=== PATIENT | female | born 1975 | race Caucasian/White ===

== ENCOUNTER 2017-12-06 20:50 | Emergency (ER) | payer OTHER ==
[~2017-12-06] VITALS: Ht 157.5 cm; Wt 124.7 kg
[~2017-12-06 20:50] MED LIST: ATENOLOL PO; ATENOLOL100 MG PO; ATIVAN1 MG PO; CHLORTHALIDONE25 MG PO; CLONIDINE HCL0.1 MG PO; CYCLOBENZAPRINE10 MG PO; DEXILANT60 MG PO; FIORINAL 50-321 EACH PO; HYDROCODON-ACE1 EAC9 PO; LISINOPRIL40 MG PO; LORAZEPAM2 MG PO; NORCO 5-325 TA1 EACH PO; NORVASC10 MG PO; PROAIR HFA INH8.5 GM INH; TIZANIDINE HCL4 M1 PO; ZOFRAN8 MG PO; ZYRTEC10 MG PO
[2017-12-06] MEDS ORDERED: DIPHENHYDRAMINE HCL 25 MG CAP PO ONE (22:00)
[2017-12-06] MEDS ORDERED: MORPHINE SULFATE 4 MG/ML SYR IM ONE (22:00)
[2017-12-06] MEDS ORDERED: VALIUM5 MG PO (22:21)
[2017-12-06] MEDS ORDERED: TYLENOL WITH C1 EACH PO (22:21)
[2017-12-06 22:43] VITALS: BP 147/82
== END 2017-12-06 22:35 | disposition home or self-care (01) ==
LOC: FSED 20:50
DX: S82.62XA Displaced fracture of lateral malleolus of left fibula, initial encounter for closed fracture (principal); Y93.01 Activity, walking, marching and hiking; I10 Essential (primary) hypertension
CPT/HCPCS: 29515; 73610; 96372; 99284; J2270

== ENCOUNTER 2019-07-27 22:44 | Emergency (ER) | payer OTHER ==
[~2019-07-27] VITALS: Ht 157.5 cm; Wt 139.3 kg
[~2019-07-27 22:44] MED LIST changes: +TYLENOL WITH C1 EACH PO; +VALIUM5 MG PO
--- NOTE | 2019-07-27 23:45 | Diagnostic Imaging Report ---
X-ray right wrist 3 views X-ray right elbow 3 views HISTORY: Pain. Trauma COMPARISON: None available. FINDINGS: Bones: Acute displaced angulated comminuted impacted intra-articular distal radial fracture. Ulnar styloid tip fracture. Joints: Mild volar translation of the carpus relative to the posterior aspect of the radial articular surface. Soft tissues: Soft tissue swelling about the wrist IMPRESSION: Acute displaced angulated comminuted impacted intra-articular distal radial fracture and ulnar styloid tip fracture. Mild volar translation of the carpus relative to the posterior aspect of the distal radial articular surface. Signed by: Richard Richardson DO on 07/27/2019 11:42 PM
[2019-07-28] MEDS ORDERED: HYDROCODONE/APAP 5MG-325MG TAB ONE (00:13)
[2019-07-28] MEDS ORDERED: ONDANSETRON HCL 4 MG ORAL DISINTEGRATING TAB ONE (00:13)
[2019-07-28] MEDS ORDERED: HYDROCODONE/APAP 5MG-325MG TAB PO ONE (00:15)
[2019-07-28] MEDS ORDERED: ONDANSETRON HCL 4 MG ORAL DISINTEGRATING TAB PO ONE (00:15)
== END 2019-07-28 00:17 | disposition home or self-care (01) ==
LOC: FSED 22:44
DX: S52.571A Other intraarticular fracture of lower end of right radius, initial encounter for closed fracture (principal); S52.611A Displaced fracture of right ulna styloid process, initial encounter for closed fracture; W03.XXXA Other fall on same level due to collision with another person, initial encounter; G89.11 Acute pain due to trauma; E66.9 Obesity, unspecified; Z68.43 Body mass index [BMI] 50.0-59.9, adult; I10 Essential (primary) hypertension
CPT/HCPCS: 29125; 73080; 73110; 99284; Q0162

== ENCOUNTER → 2019-08-08 | Day surgery (SDC) | payer OTHER ==
[~2019-08-08] MED LIST changes: +ACETAMINOPHEN 1000 MG/100 ML 100 ML IV ONE; +AMITRIPTYLINE H10 MG PO; +BUPIVACAINE HCL 0.5% INJ 30 ML VIAL INJ ONE; +BUTALB-ACETAMI1 EACH PO; +DESFLURANE 240 ML BTL INH ONE; +DEXAMETHASONE SOD PHOS INJ 4 MG/ML VIAL ONE; +FENTANYL CITRATE/PF 100MCG/2 ML INJ ONE; +HYDRALAZINE HCL25 MG PO; +HYDROXYCHLOROQ200 MG PO; +LIDOCAINE HCL 2% LOCAL INJ 5 ML SDV VIAL INJ ONE; +METOPROLOL TART50 MG PO; +MIDAZOLAM HCL 2 MG/2 ML VIAL ONE; +OMEPRAZOLE40 MG PO; +ONDANSETRON HCL INJ 2MG/ML 2ML 2 MG/ML VIAL ONE; +PROPOFOL IV EMULSION 10 MG/ML 20 ML VIAL ONE; +ROCURONIUM BROMIDE 10 MG/ML 5ML VIAL ONE; +SUCCINYLCHOLINE 200 MG/10 ML SYR ONE; +XYZAL5 MG PO
--- OUTSIDE RECORDS SUMMARY | 2019-08-08 05:32 | XMS REPORT | Encounter Summary ---
Author Organization Unknown Address [address] [place] [address] Phone [phone] Care Team Providers Care Electrical High Tension Tester Name Role Phone Dr. Georgina Calderon 3 [phone] Kobe Rosa MD 121 [phone] Lux Esteves MD 124 [phone] Reason for Visit Mixed anxiety and depressive disorder Instructions 1. Working through the pain of grief counseling referral - Please call patient and schedule her an appointment. fluoxetine 20 mg capsule 2. Anxiety diazepam 10 mg tablet 3. Mixed anxiety and depressive disorder 4. Immunization Adacel (Tdap Adolesn/Adult)(PF)2 Lf-(2.5-5-3-5)-5 Lf/0.5 mL IM syringe 5. Body mass index 40+ - severely obese body mass index: care instructions learning about healthy weight Discussion Note: None recorded. Plan of Care Reminders Provider Appointments Est Patient 03/26/2019 10:45AM Georgina Calderon MD Lab None recorded. Referral Counseling Referral 03/12/2019 Yusef Baez ART MUSEUM AIDE Procedures None recorded. Surgeries None recorded. Imaging None recorded. Medications Name Start Date amitriptyline 10 mg tablet Take 1 tablet every day by oral route at bedtime. amlodipine 10 mg tablet TAKE 1 TABLET BY MOUTH EVERY DAY fcugzccnpp-fzpuiasycodlg-ilwpoevk 50 mg-300 mg-40 mg capsule TAKE 1 CAPSULE BY MOUTH EVERY 6 HOURS NEEDED cephalexin 500 mg capsule Take 1 capsule every 6 hours by oral route for 10 days. clonidine HCl 0.1 mg tablet TAKE 1 TABLET BY MOUTH EVERY DAY cyclobenzaprine 10 mg tablet Take 1 tablet twice a day by oral route. diazepam 10 mg tablet Take 1 tablet twice a day by oral route as needed. fluconazole 150 mg tablet Take 1 tablet every day by oral route as needed for 2 days. fluoxetine 20 mg capsule Take 1 capsule every day by oral route. hydroxychloroquine 200 mg tablet Take 1 tablet twice a day by oral route. lisinopril 40 mg tablet TAKE 1 TABLET BY MOUTH EVERY DAY metoprolol tartrate 100 mg tablet TAKE 1 TABLET BY MOUTH TWICE DAILY mupirocin 2 % topical ointment APPLY A SMALL AMOUNT TO THE AFFECTED AREA BY TOPICAL ROUTE 3 TIMES PER DAY omeprazole 20 mg capsule,delayed release TAKE 1 CAPSULE BY MOUTH EVERY DAY NEEDED Xyzal 5 mg tablet Take 1 tablet every day by oral route as needed for 10 days. Medications Administered None recorded. Vitals Height Weight BMI Blood Pressure 5 ft 2 in 311.2 lbs 56.9 kg/m2 128/88 mm[Hg] Lab Results Date Name Specimen Result Interpretation Description Value Range Status Address 02/25/2019 CBC W/ Auto Diff Wbc 7.3 x10e3/uL 3.4-10.8 x10e3/uL Final [facility] Laboratory: [facility] [place] [address] Rbc 4.20 x10e6/uL 3.77-5.28 x10e6/uL Final [facility] Laboratory: [address] [place] [address] Hemoglobin 12.0 g/dL 11.1-15.9 g/dL Final [facility] Laboratory: [address] [place] [address] Hematocrit 36.1 % 34.0-46.6 % Final [facility] Laboratory: [address] [place] [address] Mcv 86 fL 79-97 fL Final [facility] Laboratory: [address] [place] [address] Mch 28.6 pg 26.6-33.0 pg Final [facility] Laboratory: [address] [place] [address] Mchc 33.2 g/dL 31.5-35.7 g/dL Final [facility] Laboratory: [address] [place] [address] Rdw 13.6 % 12.3-15.4 % Final [facility] Laboratory: [address] [place] [place] [address] Platelets 205 x10e3/uL 150-450 x10e3/uL Final [facility] Laboratory: [address] [place] [address] Neutrophils 66 % not estab. % Final [facility] Laboratory: [address] [place] [address] Lymphs 23 % not estab. % Final [facility] Laboratory: [address] [place] [place] [address] Monocytes 8 % not estab. % Final [facility] Laboratory: [address] [place] [address] Eos 3 % not estab. % Final [facility] Laboratory: [address] [place] [address] [place] Basos 0 % not estab. % Final [facility]: [address] [place] [address] Immature Cells comment Cancelled [facility] Laboratory: [address] [place] [address] [place] Neutrophils (Absolute) 4.8 x10e3/uL 1.4-7.0 x10e3/uL Final [facility] Laboratory: [address] [place] [address] [place] Lymphs (Absolute) 1.7 x10e3/uL 0.7-3.1 x10e3/uL Final [facility] Laboratory: [address] [place] [place] [address] Monocytes(absolute) 0.6 x10e3/uL 0.1-0.9 x10e3/uL Final [facility] Laboratory: [address] [place] [address] Eos (Absolute) 0.2 x10e3/uL 0.0-0.4 x10e3/uL Final [facility] Laboratory: [address] [place] [address] Baso (Absolute) 0.0 x10e3/uL 0.0-0.2 x10e3/uL Final [facility] Laboratory: [address] [place] [place] [address] Immature Granulocytes 0 % not estab. % Final [facility]: [address] [place] [address] Immature Grans (Abs) 0.0 x10e3/uL 0.0-0.1 x10e3/uL Final [facility] Laboratory: [address] [place] [address] Hematology Comments: comment Cancelled [facility] Laboratory: [address] [place] [address] 02/25/2019 CMP, Serum or Plasma High Glucose 111 mg/dL 65-99 mg/dL Final [facility] Laboratory: [address] [place] [place] [address] Bun 14 mg/dL 6-24 mg/dL Final [facility] Laboratory: [address] [place] [address] Creatinine 0.63 mg/dL 0.57-1.00 mg/dL Final [facility] Laboratory: [address] [place] [address] eGFR If Nonafricn AM 108 mL/min/1.73 >59 mL/min/1.73 Final [facility] Laboratory: [address] [place] [address] eGFR If Africn AM 124 mL/min/1.73 >59 mL/min/1.73 Final [facility] Laboratory: [address] [place] [facility], [place] BUN/creatinine Ratio 22 9-23 Final [facility] Laboratory: [address] [place] [place], [place] Sodium 142 mmol/L 134-144 mmol/L Final [facility] Laboratory: [address] [place] [address], [place] Potassium 4.3 mmol/L 3.5-5.2 mmol/L Final [facility] Laboratory: [address] [place] [address], [place] Chloride 104 mmol/L 96-106 mmol/L Final [facility] Laboratory: [address] [place] [address], [place] Carbon Dioxide, Total 21 mmol/L 20-29 mmol/L Final [facility] Laboratory: [address] [place] [place], [place] Calcium 8.7 mg/dL 8.7-10.2 mg/dL Final [facility] Laboratory: [address] [facility], [place] Protein, Total 7.1 g/dL 6.0-8.5 g/dL Final [facility] Laboratory: [address] [place] [place] [address], [place] Albumin 4.1 g/dL 3.5-5.5 g/dL Final [facility] Laboratory: [address] [place] [address], [place] Globulin, Total 3.0 g/dL 1.5-4.5 g/dL Final [facility] Laboratory: [address] [place] [facility], [place] A/g Ratio 1.4 1.2-2.2 Final [facility] Laboratory: [address] [place] [place] [address] [place] [address] Bilirubin, Total <0.2 mg/dL 0.0-1.2 mg/dL Final [facility] Laboratory: [address] [place] [facility], [place] Alkaline Phosphatase 92 IU/L 39-117 IU/L Final [facility]: [address] [place] [place] [address] Ast (Sgot) 28 IU/L 0-40 IU/L Final [facility] Laboratory: [address] [place] [address] Alt (Sgpt) 31 IU/L 0-32 IU/L Final [facility] Laboratory: [address] [place] 02/25/2019 Lipid Panel, Serum Cholesterol, Total 168 mg/dL 100-199 mg/dL Final [facility] Laboratory: [address] [place] [address] Triglycerides 113 mg/dL 0-149 mg/dL Final [facility] Laboratory: [address] [place] [place] [address] HDL Cholesterol 50 mg/dL >39 mg/dL Final [facility] Laboratory: [address] [place] [place] [address] VLDL Cholesterol Gallito 23 mg/dL 5-40 mg/dL Final [facility] Laboratory: [address] [place] [address] LDL Cholesterol Calc 95 mg/dL 0-99 mg/dL Final [facility] Laboratory: [address] [place] [address], [place] 02/25/2019 TSH, Serum or Plasma Tsh 0.858 uIU/mL 0.450-4.500 uIU/mL Final [facility] Laboratory: [address] [place] [address], [place] 02/25/2019 Erythrocyte Sedimentation Rate by Westergren Method Sedimentation Rate-westergren 21 mm/HR 0-32 mm/HR Final [facility] Laboratory: [address] Allergies Code Code System Name Reaction Severity Status Onset 21581101 RxNorm Celebrex Active 21760927 RxNorm Imitrex Flushing Active Problems Name Status Onset Date Source Migraine with Aura Active 06/27/2016 Benign Essential Hypertension Active 06/27/2016 Neck Pain Active 06/27/2016 Body Mass Index 40+ - Severely Obese Active 06/27/2016 History of Hysterectomy for Benign Disease Active 11/22/2016 Mixed Anxiety and Depressive Disorder Active 03/06/2017 History of Disorder of Connective Tissue Active 06/17/2017 Seasonal Allergy Active 12/07/2017 Closed Fracture of Lateral Malleolus Active 12/08/2017 Morbid Obesity Active 02/27/2019 Procedures Date Name Performed by 09/25/2015 Hysterectomy (Partial) Information not available 09/25/2008 Orthopedic Surgery Information not available 09/25/1998 Tubal Ligation Information not available Ankle Arthroscopy/surgery Information not available Partial Hysterectomy Information not available Vaccine List Vaccine Type Tdap 03/12/20190.5 mL Social History Smoking Status Former Smoker (1/2 PPD) Past Encounters 03/12/2019 Working through the Pain of Grief; Anxiety; Mixed Anxiety and Depressive Disorder; Immunization; Body Mass Index 40+ - Severely Obese Georgina Calderon MD: [address] [place] [address], Ph. 02/22/2019 Cellulitis; Body Mass Index 40+ - Severely Obese; Morbid Obesity; Closed Fracture of Lateral Malleolus; Chronic Low Back Pain; History of Disorder of Connective Tissue; Benign Essential Hypertension; Migraine with Aura; Seasonal Allergy; Mixed Anxiety and Depressive Disorder; Gastroesophageal Reflux Disease without Esophagitis Georgina Calderon MD: [address] [place] [address], Ph. History of Present Illness Note:44yo female presents for evaluation of acute grief. Pt found her qyxqjd-xg-alf in her bed on Monday night. Went to visit her nieces (34yo & 25yo) and SMITH wasn't 'feeling well'. Pt's brother is alcoholic dealing with their mother's . Pt very worried about nieces & their coping - youngest trying to hold it together. 34yo is crying & staying with pt. Pt, her & her oldest son (27yo) & 20yo son's birthday on Sat. Rkawnh-ep-hmg was only 53yo.<div>Pt very upset & distraught. </div><div>No suicidal. Tearful. Agreeable to counseling which she has gone to in past.</div> Review of Systems:ROS as noted in the HPI Review of Systems Comprehensive General Adult ROS Reported By: Patient Constitutional: Constitutional: no fever; upset, tearful, anxious, sad, shocked Eyes: Eyes: no vision change Cardiovascular: Cardiovascular: no chest pain Respiratory: Respiratory: no cough, no wheezing, no shortness of breath Gastrointestinal: Gastrointestinal: no abdominal pain Neurologic: Neurologic: no loss of consciousness, no headaches Psychiatric: Psych: feeling safe in a relationship, no alcohol abuse, no hallucinations, no suicidal thoughts, depression, anxiety Physical Exam General Adult Exam (Female) Reported By: Patient Constitutional: General Appearance: healthy-appearing, well-developed, obese. Level of Distress: NAD. Ambulation: ambulating normally Psychiatric: Insight: good judgement. Mental Status: active and alert, abnormal affect, anxious, depressed; tearful, upset, crying ENMT: Hearing: no hearing loss. Oropharynx: moist mucous membranes Lungs: Respiratory effort: no dyspnea. Auscultation: breath sounds normal, good air movement, no wheezing, no rales/crackles Cardiovascular: Heart Auscultation: RRR, normal S1, normal S2, no murmurs. Neck vessels: no carotid bruits Neurologic: Gait and Station: normal gait Skin: Inspection and palpation: no rash
--- OUTSIDE RECORDS SUMMARY | 2019-08-08 05:32 | XMS REPORT | Encounter Summary ---
Author Organization Unknown Address [address] [place] [address] Phone [phone] Care Team Providers Care Profile Saw Operator Name Role Phone Dr. Georgina Calderon 3 [phone] Miguel Hodge MD 107 [phone] Kobe Rosa MD 121 [phone] Karlo Albright MD 124 [phone] Reason for Visit sore throat; fever; body aches Instructions 1. Upper respiratory infection amoxicillin 875 mg-potassium clavulanate 125 mg tablet taavhoejepdpukr-jfrmtymienpnnxa-ZD 2 mg-30 mg-10 mg/5 mL oral syrup ceftriaxone 1 gram solution for injection 2. Sore throat symptom rapid strep group A, throat 3. Fever rapid flu (A+B) 4. Body mass index 30+ - obesity body mass index: care instructions 5. Depression screening learning about depression 6. Migraine with aura bnlpmaexte-coxotyk-mhdzxmjk 50 mg-325 mg-40 mg capsule Discussion Note: None recorded. Plan of Care Reminders Provider Appointments None recorded. Lab Rapid Strep Group a, Throat 12/31/2018 [facility] [place] Rapid Flu (A+B) 12/31/2018 [facility] [place] Referral None recorded. Procedures None recorded. Surgeries None recorded. Imaging None recorded. Medications Name Start Date amitriptyline 10 mg tablet Take 1 tablet every day by oral route at bedtime. amlodipine 10 mg tablet TAKE 1 TABLET BY MOUTH EVERY DAY amoxicillin 875 mg-potassium clavulanate 125 mg tablet Take 1 tablet twice a day by oral route for 10 days. gmdkmrvqzbjdvix-yjzofcoxqjshuxu-EN 2 mg-30 mg-10 mg/5 mL oral syrup Take 10 mL every 6-8 hours by oral route as needed. xooozhyrew-yefrafk-jqleaisu 50 mg-325 mg-40 mg capsule Take 1 capsule every 4-6 hours by oral route as needed. ceftriaxone 1 gram solution for injection Take 1 g by injection route. clonidine HCl 0.1 mg tablet TAKE 1 TABLET BY MOUTH EVERY DAY cyclobenzaprine 10 mg tablet Take 1 tablet twice a day by oral route. hydroxychloroquine 200 mg tablet Take 1 tablet twice a day by oral route. lisinopril 40 mg tablet TAKE 1 TABLET BY MOUTH EVERY DAY metoprolol tartrate 100 mg tablet TAKE 1 TABLET BY MOUTH TWICE DAILY omeprazole 20 mg capsule,delayed release TAKE 1 CAPSULE BY MOUTH EVERY DAY NEEDED Xyzal 5 mg tablet Take 1 tablet every day by oral route as needed for 10 days. Medications Administered Name Date ceftriaxone 1 gram solution for injection Take 1 g by injection route. [id number]:12:41 Vitals Height Weight BMI Blood Pressure 5 ft 2 in 303 lbs 55.4 kg/m2 120/70 mm[Hg] Lab Results Date Name Specimen Result Interpretation Description Value Range Status Address Rapid Flu (A+B) Type Flu a negative [facility] ([facility] [place]: [address] [place] [address] Type Flu B negative [facility] ([facility] [place]: [address] [place] [address] Rapid Strep Group a, Throat Strep negative [facility] ([facility] [place]: [address] [place] [address] Allergies Code Code System Name Reaction Severity Status Onset 404148 RxNorm Celebrex Active 934504 RxNorm Imitrex Flushing Active Problems Name Status [...] Closed Fracture of Lateral Malleolus Active 12/08/2017 Procedures Date Name Performed by 09/25/2015 Hysterectomy (Partial) Information not available 09/25/2008 Orthopedic Surgery Information not available 09/25/1998 Tubal Ligation Information not available Ankle Arthroscopy/surgery Information not available Partial Hysterectomy Information not available Vaccine List None recorded. Social History Smoking Status Former Smoker (1/2 PPD) Past Encounters 12/31/2018 Upper Respiratory Infection; Sore Throat Symptom; Fever; Body Mass Index 30+ - Obesity; Depression Screening; Migraine with Aura Georgina Calderon MD: [address] [place] [address], Ph. History of Present Illness Note:Patient states started with a tickle in the throat. It started to hurt with a cough and sinus drainage x 4 days since Monday. Getting worse. Had fever over the weekend & temp 99.2 in office. Highest temp was 102.7 at home. Took Tylenol and ASA at home. Needs refill of Bromfed.<div>Allergies: Celebrex & Imitrex.</div><div>Last visit on 11/02/18 with similar symptoms which improved with course of Augmentin, Rocephin, & Bromfed DM.</div>
Previously:<div> Cannot take Motrin/Advil (heart flutter). Is taking Xyzal & Flonase.<div>
</div><div>Saw Dr Zaidi, pain management late Jul 2018 & had Myobloc (like Botox) injection to neck & scalp & buddhism. Has Myobloc injections every three months by Dr Zaidi. Much less migraine headaches.
</div><div>
</div>< div><span style="font-size: 14px;">Previously:</span>
</div><div><div><div>Pt did see new neurologist at end of March for migraine headaches. Started on ami triptyline 10mg qhs for prevention.</div><div>Is no longer taking Prozac or BuSpar since December - is no longer going to [place] [facility].</div><div><div>
</div><div>PMHx:</div><div>Migraine CORADO- Has appt with new neurologist, Dr. Carmelina Pak for the end of March 2018 for evaluation of migraine headaches. Had success with Botox injections in past.</div><div>Hypertension- Currently taking amlodipine 10mg qd, lisinopril 40mg qd, metoprolol 100mg bid, and clonidine 0.1mg qd.
</div><div>Depression/anxiety -Is followed by [facility] & gets BuSpar and prozac from them.
</div><div>MCTD - followed by rheumatology, Dr Rosa/Dr. Walsh & gets plaquenil from them. Started plaquenil last April 2017.
</div><div>Left ankle fx on 12/05/17. Still with mild swelling of left ankle & numbness laterally. Dr Orellana.< /div><div><span style="font-size: 14px;">Seasonal allergies - has seen ENT in past for recurrent sinus infections. Is using Flonase & Xyzal for seasonal spring allergies.</span></div></div><div><span style="font-size: 14px;">Pt has hx of kidney stones about 10yrs ago - small stones that passed spontaneously. In early 1999s had urology, Dr Gruber, retrieve stone stuck in UVP junction. Stopped taking Topamax for migraine prophylaxis & no longer had kidney stones.</span></div></div></div></div> Review of Systems:ROS as noted in the HPI Review of Systems Comprehensive General Adult ROS Reported By: Patient Constitutional: Constitutional: no fever Eyes: Eyes: no vision change ENMT: Ears: no difficulty hearing, no ear pain. Nose: no frequent nosebleeds, nose problems, sinus problems. Mouth/Throat: sore throat Cardiovascular: Cardiovascular: no chest pain Respiratory: Respiratory: no wheezing, no shortness of breath, no coughing up blood, cough Gastrointestinal: Gastrointestinal: no abdominal pain, no nausea, no vomiting, no diarrhea Neurologic: Neurologic: frequent or severe headaches, migraines Endocrine: Endocrine: fatigue Allergic/Immunologic: Allergy/Immunologic: runny nose, sinus pressure Physical Exam General Adult Exam (Female), Upper Respiratory Infection Exam Comprehensive Reported By: Patient Constitutional: General Appearance: healthy-appearing, well-nourished, well-developed, in no acute distress. Ambulation: ambulating normally Psychiatric: Mental Status: active and alert, normal mood, normal affect Eyes: Lids and Conjunctivae: non-injected. Pupils: PERRLA, PERRLA. EOM: EOMI. Sclerae: non-icteric ENMT: Ears: middle ear fluid. Nose: no lesions on external nose, pink and moist, sinus tenderness, nasal discharge--rhinorrhea, irritated mucosa. Oropharynx: moist mucous membranes, erythema Neck: Neck: symmetrical. Thyroid: non-tender, no nodules Lungs: Respiratory effort: no dyspnea. Auscultation: breath sounds normal, good air movement, no wheezing, no rales/crackles Cardiovascular: Heart Auscultation: RRR, normal S1, normal S2, no murmurs. Neck vessels: no carotid bruits. Auscultation regular rate and rhythm. Observation/Palpation of peripheral vascular system carotid pulse normal Abdomen: Bowel Sounds: normal. Inspection and Palpation: soft, no tenderness, no guarding, no masses, no CVA tenderness Musculoskeletal:: Joints, Bones, and Muscles: limited ROM, bony deformity. Extremities: no edema Neurologic: Gait and Station: normal gait Skin: Inspection and palpation: no rash. Inspection and palpation: no rash Ears: Right External auditory canal normal appearance. Left External auditory canal normal appearance. Right Tympanic membrane pearly monroe, landmarks clear. Left Tympanic membrane: pearly monroe, landmarks clear Oral Cavity/Mouth: Oral Mucosa: normal, moist. Tonsils: erythema. Posterior pharynx: erythema Lymph Nodes: Cervical no palpable lymph node enlargement, no submandibular adenopathy, no posterior cervical adenopathy
--- OUTSIDE RECORDS SUMMARY | 2019-08-08 05:32 | XMS REPORT | Encounter Summary ---
Author Organization Unknown Address [address] [place] [address] Phone [phone] Care Team Providers Care Draftsperson Name Role Phone Dr. Georgina Calderon 3 [phone] Kobe Rosa MD 121 [phone] Lux Esteves MD 124 [phone] Reason for Visit skin problem/rash Instructions 1. Candidal intertrigo nystatin 100,000 unit/gram topical powder clotrimazole-betamethasone 1 %-0.05 % topical cream fluconazole 150 mg tablet 2. Body mass index 40+ - severely obese body mass index: care instructions learning about healthy weight 3. Mixed anxiety and depressive disorder 4. Benign essential hypertension 5. Neck pain Discussion Note: None recorded. Plan of Care Reminders Provider Appointments Est Patient 05/24/2019 10:15AM Georgina Calderon MD Lab None recorded. Referral None recorded. Procedures None recorded. Surgeries None recorded. Imaging None recorded. Medications Name Start Date amitriptyline 10 mg tablet Take 1 tablet every day by oral route at bedtime. amlodipine 10 mg tablet TAKE 1 TABLET BY MOUTH EVERY DAY kyncpryedu-mqribnjcprzsy-zdbgsolr 50 mg-300 mg-40 mg capsule Take 1 capsule every 6 hours by oral route as needed for 10 days. clonidine HCl 0.1 mg tablet TAKE 1 TABLET BY MOUTH EVERY DAY clotrimazole-betamethasone 1 %-0.05 % topical cream APPLY TO THE AFFECTED AND SURROUNDING AREAS OF SKIN BY TOPICAL ROUTE 2 TIMES PER DAY IN THE MORNING AND EVENING FOR 2 WEEKS cyclobenzaprine 10 mg tablet Take 1 tablet twice a day by oral route. diazepam 10 mg tablet TAKE 1 TABLET BY MOUTH TWICE DAILY NEEDED fluconazole 150 mg tablet Take 1 tablet every day by oral route as needed for 5 days. fluoxetine 40 mg capsule Take 1 capsule every day by oral route. hydralazine 25 mg tablet TAKE 1 TABLET BY MOUTH TWICE DAILY hydroxychloroquine 200 mg tablet TAKE 1 TABLET BY MOUTH TWICE DAILY lisinopril 40 mg tablet TAKE 1 TABLET BY MOUTH EVERY DAY metoprolol tartrate 100 mg tablet TAKE 1 TABLET BY MOUTH TWICE DAILY nystatin 100,000 unit/gram topical powder APPLY TO THE AFFECTED AREA(S) BY TOPICAL ROUTE 2 TIMES PER DAY omeprazole 20 mg capsule,delayed release TAKE 1 CAPSULE BY MOUTH EVERY DAY NEEDED Xyzal 5 mg tablet Take 1 tablet every day by oral route as needed for 10 days. Medications Administered None recorded. Vitals Height Weight BMI Blood Pressure 5 ft 2 in 304 lbs 55.6 kg/m2 132/86 mm[Hg] Lab Results None recorded. Allergies Code Code System Name Reaction Severity [...] Vaccine Type Tdap 03/12/20190.5 mL Social History Tobacco Smoking Status Former Smoker (1/2 PPD) Past Encounters 05/03/2019 Candidal Intertrigo; Body Mass Index 40+ - Severely Obese; Mixed Anxiety and Depressive Disorder; Benign Essential Hypertension; Neck Pain Georgina Calderon MD: [address] [place] [address], Ph. 04/22/2019 Body Mass Index 40+ - Severely Obese; Morbid Obesity; Mixed Anxiety and Depressive Disorder; Migraine with Aura; Working through the Pain of Grief; History of Disorder of Connective Tissue; Benign Essential Hypertension Georgina Calderon MD: [address] [place] [address], Ph. History of Present Illness Note:44yo female presents for evaluation of rash. Last visit 04/22/19 for acute grief. Here today for heat rash "prickly heat" under breasts & into cleavage. Has been present for about a month. Using OTC powder to relieve itch. Very uncomfortable. Trying not to scratch it.<div>Pt is scheduled to see her pain management, Dr Zaidi, next 05/07/19.</div><div>Pt is scheduled to see her psychologist, Dianna Pacheco next Mon05/08/19.</div><div>
</div><div>Previously:</div><div><div>Pt found her [id number] in her bed on Monday night 03/09/19. Went to visit her nieces (34yo & 25yo) and SMITH wasn't 'feeling well'. Glkuhi-je-dxt was only 55yo.
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 Not unexpected, but still difficult.</div><div><div>Pt very upset & distraught. </div><div>Pt's 7yo granddaughter had been staying with pt for month of March, but has gone back to [facility] for school year.</div><div>No suicidal. Tearful. </div><div>Has appt with regular counselor on May 08, 2019, Dianna Pacheco, who she has seen before. Hasn't been able to reach psychiatrist office. Did not have good experience with [facility] in [place] for missing an appt.
</div></div></div></div> Review of Systems:ROS as noted in the HPI Review of Systems Comprehensive General Adult ROS Reported By: Patient Constitutional: Constitutional: no fever; upset, tearful, anxious, sad, shocked Eyes: Eyes: no vision change Cardiovascular: Cardiovascular: no chest pain Respiratory: Respiratory: no cough, no wheezing, no shortness of breath Gastrointestinal: Gastrointestinal: no abdominal pain Integumentary: Skin: rash, itching Neurologic: Neurologic: no loss of consciousness, no headaches Psychiatric: Psych: feeling safe in a relationship, no alcohol abuse, no hallucinations, no suicidal thoughts, depression, anxiety Physical Exam General Adult Exam (Female), Upper Respiratory Infection Exam Comprehensive Reported By: Patient Constitutional: General Appearance: healthy-appearing, well-developed, obese. Level of Distress: NAD. Ambulation: ambulating normally Psychiatric: Insight: good judgement. Mental Status: active and alert, anxious, depressed ENMT: Hearing: no hearing loss. Oropharynx: moist mucous membranes Lungs: Respiratory effort: no dyspnea. Auscultation: breath sounds normal, good air movement, no wheezing, no rales/crackles Cardiovascular: Heart Auscultation: RRR, normal S1, normal S2, no murmurs. Neck vessels: no carotid bruits Neurologic: Gait and Station: normal gait Skin: Inspection and palpation: rash, lesion; see photo below
--- OUTSIDE RECORDS SUMMARY | 2019-08-08 05:32 | XMS REPORT ---
Author Author [facility] Address Unknown Phone Unavailable Care Team Providers Care Mold Sheet Cleaner Name Role Phone Lexy CONKLIN Unavailable Unavailable Problems This patient has no known problems. Allergies, Adverse Reactions, Alerts This patient has no known allergies or adverse reactions. Medications This patient has no known medications. Results Test Description Test Time Test Comments Text Results Atomic Results Result Comments [facility] 2019-07-27 23:38:00 [place] [address] Patient Name: DEON ISABEL MR #: [id number] : 1975 Age/Sex: 44/F Req #: [id number] Adm Physician: Ordered by: NE CONKLIN MD Report #: [id number] Location: [facility] Room/Bed: Procedure: [id number] HOPD/ELBOW 3 VIEW RT - [facility] Exam Date: 07/27/19 Exam Time: 2320 REPORT STATUS: Signed X-ray right wrist 3 views X-ray right elbow 3 views HISTORY: Pain. Trauma COMPARISON: None available. FINDINGS: Bones: Acute displaced angulated comminuted impacted intra-articular distal radial fracture. Ulnar styloid tip fracture. Joints: Mild volar translation of the carpus relative to the posterior aspect of the radial articular surface. Soft tissues: Soft tissue swelling about the wrist IMPRESSION: Acute displaced angulated comminuted impacted intra- articular distal radial fracture and ulnar styloid tip fracture. Mild volar translation of the carpus relative to the posterior aspect of the distal radial articular surface. Signed by: Richard Richardson DO on 07/27/2019 11:42 PM Dictated By: RICHARD RICHARDSON DO 41 Transcribed By: DARY on 07/27/192341 COPY TO: NE CONKLIN MD WRIST 3VW RT - [facility] 2019-07-27 23:38:00 [place] [address] Patient Name: DEON ISABEL MR #: [id number] : 1975 Age/Sex: 44/F Req #: [id number] Adm Physician: Ordered by: NE CONKLIN MD Report #: [id number] Location: [facility] Room/Bed: Procedure: [id number] HOPD/WRIST 3VW RT - [facility] Exam Date: 07/27/19 Exam Time: 2320 REPORT STATUS: Signed X-ray right wrist 3 views X-ray right elbow 3 views HISTORY: Pain. Trauma COMPARISON: None available. FINDINGS: Bones: Acute displaced angulated comminuted impacted intra-articular distal radial fracture. Ulnar styloid tip fracture. Joints: Mild volar translation of the carpus relative to the posterior aspect of the radial articular surface. Soft tissues: Soft tissue swelling about the wrist
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
--- OUTSIDE RECORDS SUMMARY | 2019-08-08 05:33 | XMS REPORT | Encounter Summary ---
Author Organization Unknown Address [address] [place] [address] Phone [phone] Care Team Providers Care Actuary Clerk Name Role Phone Dr. Georgina Calderon 3 [phone] Kobe Rosa MD 121 [phone] Lux Esteves MD 124 [phone] Reason for Visit Mixed anxiety and depressive disorder; skin problem/rash; cough Instructions 1. Mixed anxiety and depressive disorder 2. Working through the pain of grief fluoxetine 40 mg capsule psychiatry referral 3. Benign essential hypertension hydralazine 25 mg tablet 4. Migraine with aura wfgbwbjqyp-ecfraqwcfzepn-gdglbolf 50 mg-300 mg-40 mg capsule 5. Body mass index 40+ - severely obese body mass index: care instructions learning about healthy weight 6. Morbid obesity 7. History of disorder of connective tissue hydroxychloroquine 200 mg tablet Discussion Note: None recorded. Plan of Care Reminders Provider Appointments Est Patient 06/21/2019 10:30AM Georgina Calderon MD Return to Office on or around 06/21/2019 Georgina Calderon MD Lab None recorded. Referral Psychiatry Referral 04/22/2019 Letitia Valentino MD Procedures None recorded. Surgeries None recorded. Imaging None recorded. Medications Name Start Date amitriptyline 10 mg tablet Take 1 tablet every day by oral route at bedtime. amlodipine 10 mg tablet TAKE 1 TABLET BY MOUTH EVERY DAY vgrddpuayf-xndkmvjkoifpu-irwuhuwc 50 mg-300 mg-40 mg capsule TAKE 1 CAPSULE BY MOUTH EVERY 6 HOURS NEEDED clonidine HCl 0.1 mg tablet TAKE 1 TABLET BY MOUTH EVERY DAY cyclobenzaprine 10 mg tablet Take 1 tablet twice a day by oral route. diazepam 10 mg tablet TAKE 1 TABLET BY MOUTH TWICE DAILY NEEDED fluoxetine 40 mg capsule Take 1 capsule every day by oral route. fluoxetine 60 mg tablet Take 1 tablet every day by oral route. hydralazine 25 [...] BMI Blood Pressure 5 ft 2 in 314.5 lbs 57.5 kg/m2 (1) 157/105 mm[Hg] (2) 151/111 mm[Hg] Lab Results None recorded. Allergies Code [...] Malleolus Active 12/08/2017 Morbid Obesity Active 02/27/2019 Severe Obesity Active 05/25/2019 Procedures Date Name Performed by 09/25/2015 Hysterectomy (Partial) Information not available 09/25/2008 Orthopedic Surgery Information not available 09/25/1998 Tubal Ligation Information not available Ankle Arthroscopy/surgery Information not available Partial Hysterectomy Information not available Vaccine List Vaccine Type Tdap 03/12/20190.5 mL Social History Tobacco Smoking Status Former Smoker (1/2 PPD) Past Encounters 05/24/2019 Mixed Anxiety and Depressive Disorder; Body Mass Index 40+ - Severely Obese; Severe Obesity; Migraine with Aura; Bipolar Disorder Georgina Calderon MD: [address] [place] [address], Ph. 05/03/2019 Candidal Intertrigo; Body Mass Index 40+ - Severely Obese; Mixed Anxiety and Depressive Disorder; Benign Essential Hypertension; Neck Pain Georgina Calderon MD: [address] [place] [address], Ph. 04/22/2019 Mixed Anxiety and Depressive Disorder; Working through the Pain of Grief; Benign Essential Hypertension; Migraine with Aura; Body Mass Index 40+ - Severely Obese; Morbid Obesity; History of Disorder of Connective Tissue Georgina Calderon MD: [address] [place] [address], Ph. History of Present Illness Note:44yo female presents for evaluation of acute grief. Last visit 03/12/19.<div >Pt found her yjgszo-ai-hvc in her bed on Monday night 03/09/19. Went to visit her nieces (34yo & 25yo) and SMITH wasn't 'feeling well'. Pt, her & her oldest son (27yo) & 20yo son's birthday on Sat. 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 Not unexpected, but still difficult.</div><div><div>Pt very upset & distraught. </div><div>Pt's 7yo granddaughter had been staying with pt for month of March, but has gone back to [facility] for school year.</div><div>No suicidal. Tearful. </div><div>Has appt with regular counselor on May 08, 2019, Dianna Pacheco, who she has seen before. Hasn't been able to reach psychiatrist office. Did not have good experience with [facility] in [place] for missing an appt.</div></div ><div>Needs medication refills. Would like to increase Prozac from 20mg to 40mg qd. Not suicidal, but still very upset. Psychiatry referral placed for assistance with medications.</div> Review of Systems:ROS as noted in the [...]
--- OUTSIDE RECORDS SUMMARY | 2019-08-08 05:33 | XMS REPORT | Encounter Summary ---
Author Organization Unknown Address [address] [place] [address] Phone [phone] Care Team Providers Care Hearing Aid Assembly Supervisor Name Role Phone Dr. Georgina Calderon 3 [phone] Kobe Rosa MD 121 [phone] Lux Esteves MD 124 [phone] Reason for Visit sinus symptoms; URI; UTI; headaches Instructions 1. Mixed anxiety and depressive disorder diazepam 10 mg tablet 2. Sinus headache dexamethasone 4 mg/mL injection solution triamcinolone acetonide 40 mg/mL suspension for injection ceftriaxone 1 gram solution for injection amoxicillin 875 mg-potassium clavulanate 125 mg tablet mvdakqpegerczrb-zwiaaaonexldlmo-LI 2 mg-30 mg-10 mg/5 mL oral syrup 3. Migraine with aura jiyamewiao-gqfiqoi-ovohuxba 50 mg-325 mg-40 mg capsule 4. Body mass index 40+ - severely obese body mass index: care instructions learning about healthy weight 5. Influenza vaccination declined 6. Acute urinary tract infection urinalysis, dipstick 7. Influenza vaccination Discussion Note: None recorded. Plan of Care Reminders Provider Appointments Est Patient 08/30/2019 10:30AM Georgina Calderon MD Lab Urinalysis, Dipstick 07/26/2019 [facility] Referral None recorded. Procedures None recorded. Surgeries None recorded. Imaging None recorded. Medications Name Start Date amitriptyline 10 mg tablet Take 1 tablet every day by oral route at bedtime. amlodipine 10 mg tablet TAKE 1 TABLET BY MOUTH EVERY DAY amoxicillin 875 mg-potassium clavulanate 125 mg tablet Take 1 tablet twice a day by oral route for 10 days. heggcniepzvvwmh-ppvmwsacmhhbxdc-DD 2 mg-30 mg-10 mg/5 mL oral syrup Take 10 mL every 6-8 hours by oral route as needed. qiteepqmfb-tldtrsf-fhmnuest 50 mg-325 mg-40 mg capsule TAKE 1 CAPSULE BY MOUTH EVERY 4 TO 6 HOURS NEEDED ceftriaxone 1 gram solution for injection Take 1 g by injection route. clonidine HCl 0.1 mg tablet TAKE 1 TABLET BY MOUTH EVERY DAY cyclobenzaprine 10 mg tablet Take 1 tablet twice a day by oral route. diazepam 10 mg tablet TAKE 1 TABLET BY MOUTH TWICE DAILY NEEDED fluoxetine 20 mg capsule fluoxetine 40 mg capsule Take 1 capsule every day by oral route. fluoxetine 60 mg tablet Take 1 tablet every day by oral route. hydralazine 25 mg tablet TAKE 1 TABLET BY MOUTH TWICE DAILY hydrocodone 10 mg-acetaminophen 325 mg tablet as needed hydroxychloroquine 200 mg tablet TAKE 1 TABLET BY MOUTH TWICE DAILY lisinopril 40 mg tablet TAKE 1 TABLET BY MOUTH EVERY DAY metoprolol tartrate 100 mg tablet TAKE 1 TABLET BY MOUTH TWICE DAILY omeprazole 20 mg capsule,delayed release TAKE 1 CAPSULE BY MOUTH EVERY DAY NEEDED triamcinolone acetonide 40 mg/mL suspension for injection Take 40 mg by injection route. Xyzal 5 mg tablet Take 1 tablet every day by oral route as needed for 10 days. Medications Administered Name Date triamcinolone acetonide 40 mg/mL suspension for injection Take 40 mg by injection route. 1819-33-98L07:50:00 ceftriaxone 1 gram solution for injection Take 1 g by injection route. 9443-81-36L99:49:00 Vitals Height Weight BMI Blood Pressure 5 ft 2 in 308 lbs 56.3 kg/m2 175/102 mm[Hg] Results Lab Results Date Name Specimen Result Interpretation Description Value Range Status Address Urinalysis, Dipstick Color Color yellow [facility]: [address] [place] [address], [place] Color Appearance clear [facility]: [address] [place] [address], [place] Color Glucose negative [facility]: [address] [facility], [place] Color Bilirubin negative [facility]: [address] [facility], [place] Color Ketones negative [facility]: [facility] [place] Color Specific [place] 1.015 [facility]: [facility] [place] Color Blood negative [facility]: [address] [place] [address], [place] Color PH 6.5 [facility]: [address] [place] [address], [place] Color Protein negative [facility]: [facility] Color Urobilinogen 0.2 [facility]: [address] [facility] [place] Color Nitrites negative [facility]: [address] [facility], [place] Color Leukocytes negative [facility]: [address] [facility], [place] Allergies Code Code System Name Reaction Severity Status Onset 354357 RxNorm Celebrex Active 580681 RxNorm Imitrex Flushing Active Problems Name Status [...] Status Former Smoker (1/2 PPD) Past Encounters 07/26/2019 Mixed Anxiety and Depressive Disorder; Sinus Headache; Migraine with Aura; Body Mass Index 40+ - Severely Obese; Influenza Vaccination Declined; Acute Urinary Tract Infection; Influenza Vaccination Georgina Calderon MD: [address] [place] [address], [place] [address], Ph. History of Present Illness Note:44yo female presents for evaluation of URI symptoms intermittently for past month. Also with strong odor to urine, cloudy urine for past week. Has had cough almost to point of throwing up. Is leaving on Monday with youngest son (20yo) to go on vacation to [place] to see [place], will be gone for a week.<div>No ear infection today. Head congestion, sinus pressure, sinus headache. No fever. Postnasal drip, thick mucus causing gagging. Is on daily Xyzal for allergies & amp; Flonase nasal spray.</div>Since last visit, pt has seen psychiatry nurse practitioner, Ashish Swan, and new therapist, Dianna Leon at [facility] in June. Psych recommended continuing Prozac 60mg qd and trying to get approval for Rexulti (mood stabilizer). Has appt with psychiatrist, Dr Kingsley Jimenez later this month of Jul. Has been taking Rexulti samples for past 2wks - currently on 2mg qd.<div>Pt pleased - mood is better. Much less stressed. Sees therapist every 2wks.</div><div>Went to psychiatry with niece & 35yo niece is moving to [facility] with boyfriend. Pt feels like she is a sister, very close.</div><div>Needs medication refills today.</div><div>
</div><div> Previously:</div><div>Pt followed by pain management, Dr Zaidi on 05/07/19. Is planning to have nerve ablation to low back when approved by insurance. Is scheduled to return him on Jun 05 for regular botox injections to neck & jaws for TMJ & headache prophylaxis. Clenching her teeth. Has tried regular mouthguard, but doesn't help. <div>
</div><div>Still with increased stress, anxiety, depression over events of this summer. </div><div>1) Pt found her 53yo sxhkwl-zy-hsb in her bed on 03/09/19.</div><div>2) Pt's elderly 95yo aunt who pt has taken care of for past 12yrs passed on 03/22/19.</div><div>Is using two valium per day & two fiorinal per day. Needs refills. TPMP reviewed.< /div><div>Since last visit, pt saw her psychologist, Dianna Pacheco on Mon05/08/19. Rtn visit in 1mo (mid-May). Recommended getting out with friends, family, exercise. Pt concerned she is still very 'fragile' - called her work EAP & has appt next week on Thurs with psychiatrist. Not suicidal. Would like to increase her fluoxetine from 40mg qd to 60mg qd. Has been on the 40mg dose of Prozac for about 4wks (04/22/19 visit).</div><div>Notes that "prickly heat" rash under breasts has resolved with tx.</div></div> Review of Systems:ROS as noted in the HPI Review of Systems Comprehensive General Adult ROS Reported By: Patient Constitutional: Constitutional: no fever Eyes: Eyes: no vision change Cardiovascular: Cardiovascular: no chest pain Respiratory: Respiratory: no cough, no wheezing, no shortness of breath Gastrointestinal: Gastrointestinal: no abdominal pain Integumentary: Skin: no rashes Neurologic: Neurologic: no loss of consciousness, no [...]
--- OUTSIDE RECORDS SUMMARY | 2019-08-08 05:33 | XMS REPORT | Encounter Summary ---
Author Organization Unknown Address [address] [place] [address] Phone [phone] Care Team Providers Care Janitor And Cleaner Name Role Phone Dr. Georgina Calderon 3 [phone] Kobe Rosa MD 121 [phone] Lux Esteves MD 124 [phone] Reason for Visit Mixed anxiety and depressive disorder; Migraine with aura Instructions 1. Mixed anxiety and depressive disorder diazepam 10 mg tablet fluoxetine 60 mg tablet 2. Body mass index 40+ - severely obese body mass index: care instructions learning about healthy weight 3. Severe obesity 4. Migraine with aura nmlfwtdfkq-jytdjlshtrngm-lxmfvvxf 50 mg-300 mg-40 mg capsule 5. Bipolar disorder bipolar disorder: care instructions learning about mood disorders Discussion Note: None recorded. Plan of Care [...] TAKE 1 TABLET BY MOUTH EVERY DAY epgxtjmgns-ghkuzxrbgjvvt-tdqkwpbm 50 mg-300 mg-40 mg capsule TAKE 1 [...] BMI Blood Pressure 5 ft 2 in 309.6 lbs 56.6 kg/m2 136/88 mm[Hg] Lab Results None recorded. Allergies Code [...] Aura; Bipolar Disorder Georgina Calderon MD: [address] [place] [address], Ph. 05/03/2019 Candidal Intertrigo; Body Mass Index 40+ - Severely Obese; Mixed Anxiety and Depressive Disorder; Benign Essential Hypertension; Neck Pain Georgina Calderon MD: [address] [place] [address], Ph. History of Present Illness Note:44yo female presents for follow-up of acute grief. Last visit 05/03/19.<div> Since last visit, pt saw pain management, Dr Zaidi on 05/07/19. Is planning to hav e nerve ablation to low back when approved by insurance. Is scheduled to return him on Jun 05 for regular botox injections to neck & jaws for TMJ & headache prophylaxis. Clenching her teeth. Has tried regular mouthguard, but doesn't help. </div><div>
</div><div>Still with increased stress, anxiety, depression over events of this summer. </div><div>1) Pt found her 53yo zhgtzf-ry-nem in her bed on 03/09/19.</div><div>2) Pt's elderly [...] EAP & has appt next week on with psychiatrist. Not suicidal. Would like to increase her fluoxetine from 40mg qd to 60mg qd. Has been on the 40mg dose of Prozac for about 4wks (04/22/19 visit).</div><div>Notes that "prickly heat" rash under breasts has resolved with tx.</div><div>
<div> Previously:
</div><div><div><div>Pt found her ugllej-tj-lyh in her bed on Monday night 03/09/19. Went to visit her nieces (34yo & 25yo) and SMITH wasn't 'feeling well'. [place]auai-xp-wlk was only 55yo.
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 Not unexpected, but still difficult.</div><div><div>Pt very upset & distraught. </div><div>Pt's 7yo granddaughter had been staying with pt for month of March, but has gone back to [facility] for school year.</div><div>No suicidal. Tearful. </div><div>Has appt with regular counselor on May 08, 2019, Dianna Pacheco, who she has seen before. Hasn't been able to reach psychiatrist office. Did not have good experience with [facility] in [place] for missing an appt.
</div></div></div></div></div></div> Review of Systems:ROS as noted in the [...]
[2019-08-08] MEDS: CEFAZOLIN SOD 1 GM/NS 50ML 50 ML IV ONE (06:51)
[2019-08-08] MEDS: FENTANYL CITRATE/PF 100MCG/2 ML INJ ONE (08:38)
[2019-08-08] MEDS: MORPHINE SULFATE INJ 4 MG/ML INJ 1ML ONE (08:52)
[2019-08-08 09:32] VITALS: BP 141/74
--- NOTE | 2019-08-08 14:42 | Operative Report ---
DATE OF PROCEDURE: 08/08/2019 SURGEON: Tremaine Orellana MD BUCKLE ATTACHING MACHINE OPERATOR: Michael Gamboa, certified PA. PREOPERATIVE DIAGNOSIS: Right radius volar Mckeon fracture. POSTOPERATIVE DIAGNOSIS: Right radius volar Mckeon fracture. PROCEDURE: Open reduction and internal fixation, right volar Mckeon fracture. INDICATIONS: The patient is a 44-year-old lady, who fell onto an outstretched right arm. She sustained a displaced volar Mckeon fracture of her distal radius. The findings and options have been discussed. We have recommended open reduction with internal fixation. The risks and benefits have been explained. She states she understands and wishes to proceed. There are some added challenges due to the fact that she has a BMI of 56. She understands. PROCEDURE IN DETAIL: The patient was brought to the operating room and placed under general anesthetic. Her right upper extremity was prepped and draped in a sterile manner. A preoperative time-out was performed. The extremity was exsanguinated and a proximal tourniquet was inflated to 250 mmHg. A volar approach to the distal radius through the floor of the flexor carpi radialis tendon was initiated. Care was taken to avoid injury to the superficial branch of the median nerve. Deep dissection involved elevation of the pronator quadratus off the distal radius. The fracture site was carefully identified. A Car[employer]ales [employer]hew distal radius volar locking plate was utilized. The plate was placed onto the distal radius and a single proximal screw was seated. This reduced the displaced volar Mckeon fracture. An intraoperative C-arm was used to adjust the positioning of the plate slightly. The plate was then locked with a combination of compression and locking screws. Final x-rays confirmed an anatomic reduction and good positioning of the hardware. The wound was thoroughly irrigated with sterile saline. The pronator quadratus was reapproximated across the plate. The skin was closed with subcuticular Vicryl and interrupted nylon stitches. A 10 mL of 0.5% Marcaine without epinephrine were injected around the incision. A sterile bandage and a sugar-tong splint were applied. There was no blood loss and all needle and sponge counts were correct. Tremaine Orellana MD DR/LINDSEY /[id number]
== END | disposition home or self-care (01) ==
LOC: OR 05:25
PROVIDERS: ATTEND Specialist
DX: S52.561A Barton's fracture of right radius, initial encounter for closed fracture (principal); E66.01 Morbid (severe) obesity due to excess calories; F31.9 Bipolar disorder, unspecified; I10 Essential (primary) hypertension; D64.9 Anemia, unspecified; M32.9 Systemic lupus erythematosus, unspecified; K21.9 Gastro-esophageal reflux disease without esophagitis; I44.0 Atrioventricular block, first degree; W18.39XA Other fall on same level, initial encounter; Y92.89 Other specified places as the place of occurrence of the external cause; Z88.6 Allergy status to analgesic agent; Z01.810 Encounter for preprocedural cardiovascular examination; Z68.43 Body mass index [BMI] 50.0-59.9, adult; Z87.891 Personal history of nicotine dependence
CPT/HCPCS: 25606; 93005; C1713 ×5; J0131; J0690; J1100; J2001; J2250; J2270; J2405; J2704; J3010; 76000

== ENCOUNTER 2020-05-06 20:00 | Emergency (ER) | payer OTHER ==
[~2020-05-06] VITALS: Ht 157.5 cm; Wt 127.0 kg
[~2020-05-06 20:00] MED LIST changes: -ACETAMINOPHEN 1000 MG/100 ML 100 ML IV ONE; -BUPIVACAINE HCL 0.5% INJ 30 ML VIAL INJ ONE; -DESFLURANE 240 ML BTL INH ONE; -DEXAMETHASONE SOD PHOS INJ 4 MG/ML VIAL ONE; -FENTANYL CITRATE/PF 100MCG/2 ML INJ ONE; -LIDOCAINE HCL 2% LOCAL INJ 5 ML SDV VIAL INJ ONE; -MIDAZOLAM HCL 2 MG/2 ML VIAL ONE; -ONDANSETRON HCL INJ 2MG/ML 2ML 2 MG/ML VIAL ONE; -PROPOFOL IV EMULSION 10 MG/ML 20 ML VIAL ONE; -ROCURONIUM BROMIDE 10 MG/ML 5ML VIAL ONE; -SUCCINYLCHOLINE 200 MG/10 ML SYR ONE
--- NOTE | 2020-05-06 20:17 | Emergency Department Note ---
History of Present Illnes History of Present Illness Chief Complaint: chest pain History of Present Illness This is a 45 year old female, with a history of hypertension, bipolar disorder, GERD, anxiety, and panic attacks who presents for evaluation of chest pain. Patient states that she has had one episode of chest pain daily, for the past 2 days, that she describes as a "chest tightness or heaviness," without radiation. The pain only lasts for a "couple of minutes," and then resolves. Patient states that she was not exerting herself during either episode of chest pain. Patient states that she had no chest pain today, but prior to arrival she laid down to rest, and when she awoke she was experiencing pain in the left shoulder, and left side of the neck and face. She states she was sleeping on her left side. The pain lasted approximately 45 minutes, and resolved without intervention, upon arrival to the ED. She had no associated chest pain at all, with these symptoms. Patient denies any previous personal cardiac history. There is no immediate family history of heart disease. Patient stopped smoking @ 6 weeks ago. Patient states that she has not had previous episodes of chest pain. Patient admits to increased life stressors of having marital difficulties, after 30 years of marriage. Patient states that she has been with her spouse "since high school," and she recently found out that he's been having an affair with a coworker for the past 2 years. Patient states that she's meeting with her primary care provider, psychiatrist, and counselor weekly. They are currently in counseling, trying to salvage the marriage. He is still living in the home. She is currently on FMLA, due to the increased stressors. Historian: Patient Arrival Mode: Car Interlocking Pavement Installer Required: No Onset (how long ago): day(s) (2) Location: chest, left shoulder Quality: tight, heavy Radiation: Reports non-radiation Severity: moderate Onset quality: sudden Duration (how long): hour(s) (cp only last "a couple of minutes.") Timing of current episode: intermittent Progression: resolved Chronicity: new Context: Reports new medications (She began taking Seroquel at hs @ 2 weeks ago . Syrup ); Denies recent illness, Denies trauma/injury, Denies hx of DVT/PE Relieving factors: none Exacerbating factors: none Associated symptoms: Reports nausea/vomiting (without vomiting), Reports shortness of breath; Denies fever/chills, Denies headaches, Denies weakness Treatments prior to arrival: none Risk factors: Obesity, HTN, smoking Past Medical/Family History Physician Review I have reviewed the patient's past medical and family history. Any updates have been documented here. Past Medical History Recent Fever: No Clinical Suspicion of Infectio: No New/Unexplained Change in Ment: No Past Medical History: Hypertension, Anxiety, Depression (Bipolar), GERD Other Medical History: Panic Attacks Past Surgical History: Hysterectomy Other Surgery: pins and plates to left ankle right wrist surgery Social History Smoking Cessation: Current some day smoker (quit smoking completely 6 weeks ago, and restarted 1 week ago, smoking 1-2 cigs/ on some days, due to increased life stressors;) Counseling Performed: Yes Alcohol Use: Occasional Any Illegal Drug Use: No TB Exposure/Symptoms: No Physically hurt or threatened: No Family History Family history of heart diseas: Yes (PGF - MS, not sure of age; no ASCVD in parents or sibs;) Other Last Tetanus: MORE THAN 10 YEARS Any Pre-Existing Lines (PICC,: No Is patient up to date on immun: No Review of Systems Review of Systems Constitutional: Denies chills, Denies fever, Denies malaise EENTM: Reports no symptoms Cardiovascular: Reports chest pain; Denies edema, Denies palpitations, Denies syncope Respiratory: Reports no symptoms, Reports dyspnea (with episodes of cp;); Denies change in phlegm color, Denies chest congestion, Denies cough, Denies hemoptysis, Denies dyspnea on exertion Gastrointestinal: Reports nausea; Denies abdominal pain, Denies diarrhea, Denies vomiting Genitourinary: Reports no symptoms Musculoskeletal: Reports no symptoms Integumentary: Reports no symptoms Neurological: Reports no symptoms; Denies headache, Denies numbness, Denies paresthesia, Denies tingling, Denies weakness Psychological: Reports anxiety, Reports depressed Hematological/Lymphatic: Reports no symptoms Review of other systems: All other systems negative Physical Exam Related Data Allergies: Coded Allergies: sumatriptan (Verified Allergy, Unknown, FLUSH, BURNING SENSATION ON FACE, 08/07/19) Uncoded Allergies: PLASTIC TAPE (Allergy, Unknown, 07/27/19) PEACHES (Adverse Reaction, Unknown, HIVES, LIPS SWELL, 08/07/19) Vital signs reviewed: Yes Physical Exam CONSTITUTIONAL Constitutional: Present well-developed, Present well-nourished, Present morbidly obese; Absent diaphoretic, Absent distressed, Absent ill appearing HENT HENT: Present normocephalic, Present atraumatic, Present oropharynx clear/moist, Present nose normal HENT L/R: Present left ext ear normal, Present right ext ear normal EYES Eyes: Reports PERRL, Reports conjunctivae normal NECK Neck: Present ROM normal; Absent JVD, Absent cervical adenopathy PULMONARY Pulmonary: Present effort normal, Present breath sounds normal CARDIOVASCULAR Cardiovascular: Present regular rhythm, Present heart sounds normal, Present capillary refill normal, Present normal rate, Present strong pulses; Absent murmur GASTROINTESTINAL Abdominal: Present soft, Present nontender, Present bowel sounds normal GENITOURINARY Genitourinary: Present exam deferred SKIN Skin: Present warm, Present dry MUSCULOSKELETAL Musculoskeletal: Present ROM normal NEUROLOGICAL Neurological: Present alert, Present oriented x 3, Present no gross motor or sensory deficits PSYCHOLOGICAL Psychological: Present mood/affect normal, Present judgement normal Results Laboratory Lab results reviewed: Yes Laboratory comments CBC - nl except for Hg = 11.8; CMP - nl; Cardiacs - nl; Imaging Imaging results reviewed: Yes Impressions [place] [address] Patient Name: DEON ISABEL MR #: [id number] : 1975 Age/Sex: 45/F Req #: [id number] Adm Physician: Ordered by: NICOLASA MULLEN MD Report #: [id number] Location: [facility] Room/Bed: Procedure: [id number] HOPD/CXR 2 VIEW - HOPD Exam Date: 05/06/20 Exam Time: 2054 REPORT STATUS: Signed EXAMINATION: CXR 2 VIEW - HOPD INDICATION: Chest pain radiating to arms. COMPARISON: None FINDINGS: TUBES and LINES: None. LUNGS: Normal lung volumes. Lungs are clear. No consolidations. PLEURA: No pleural effusion or pneumothorax. HEART AND MEDIASTINUM: The cardiomediastinal silhouette is unremarkable. BONES AND SOFT TISSUES: No acute osseous lesion. Soft tissues are unremarkable. UPPER ABDOMEN: No free air under the diaphragm. IMPRESSION: No acute thoracic radiographic abnormality. Signed by: Rebecca Perez MD on 05/06/2020 9:47 PM Dictated By: REBECCA PEREZ MD 46 Transcribed By: DARY on 05/06/202146 COPY TO: NICOLASA MULLEN MD~ Diagnostics Tests Diagnostic test(s) reviewed: Yes Procedures 12 Lead ECG Interpretation ECG Interpretation : ECG: ECG 1 Interlocking Pavement Installer: Interpreted by ED physician Date: May 06, 2020 Time: 20:32 Prior ECG tracings: not available for review Rhythm: sinus rhythm Rate: normal BPM: 68 QRS axis: normal Conduction: 1st degree ST segments normal: Yes T waves normal: Yes Other findings: no other findings Clinical Impression: abnormal ECG Clinical Decision Tools HEART Score List risk factors Obesity, HTN, light smoker; HEART Score: HEART Score Response (Comments) Value History Moderately suspicious 1 EKG Normal 0 Age 45 - 65 1 Risk factors 3 or more risk factors OR hx of CAD 2 Troponin < or = to normal limit Total 4 Assessment & Plan Medical Decision Making MDM Results of diagnostic testing reviewed with patient in detail, and she was provided with copies of results. Explained that the testing performed in the ED chelsy does not indicate that she is having a heart attack currently, but that she still could have some underlying heart disease that could be causing her symptoms. She remained pain-free while in the ED, and her vital signs were stable. Explained to patient that it is important to follow up with her primary care physician to schedule either an appointment with a superannuation clerk or a stress test and echocardiogram ANNA. Patient has a good relationship with her PCP, and has been seeing them weekly, since her marital stressors began. Explained to patient that her symptoms could be due to underlying heart disease, anxiety, or musculoskeletal as she was laying on her left side when she developed the left shoulder pain. Regardless, it is important that she follow-up for further cardiac testing. She would prefer to do this as an outpatient, and she seems stable to do so. Her heart score is a 4, which puts her at moderate risk. - Follow-up with her primary care physician tomorrow, for consideration of further cardiac testing, including a stress test and echocardiogram. - Continued smoking cessation is highly recommended. - Pt is strongly encouraged to return to the emergency room if her symptoms progress or worsen, before the above testing can be performed. Pt voiced understanding of the plan. Assessment & Plan Final Impression: (1) Chest pain (2) Hypertension (3) Anxiety (4) GERD (gastroesophageal reflux disease) Depart Disposition: HOME, SELF-snf Meds Active Scripts Diazepam (VALIUM) 5 Mg Tablet, 5 MG PO TID PRN for PAIN, #15 TAB 0 Refills Prov:SUMAN ROBB MD 12/06/17 Acetaminophen With Codeine (TYLENOL WITH CODEINE #3 TABLET) 1 Each Tablet, 300 MG PO Q4HR PRN for PAIN, #20 TAB 0 Refills Take with Benadryl to prevent itch. Prov:SUMAN ROBB MD 12/06/17 Reported Medications Omeprazole (OMEPRAZOLE) 40 Mg Capsule.dr, 20 MG PO DAILY 08/07/19 Hydroxychloroquine Sulfate (HYDROXYCHLOROQUINE SULFATE) 200 Mg Tablet, 200 MG PO BID 08/07/19 Amitriptyline Hcl (AMITRIPTYLINE HCL) 10 Mg Tablet, 10 MG PO HS, #30 TAB 08/07/19 Levocetirizine Dihydrochloride (XYZAL) 5 Mg Tablet, 5 MG PO DAILY THERAPEUTICALLY SUBSTITUTED WITH LORATADINE 08/07/19 Hydralazine Hcl (HYDRALAZINE HCL) 25 Mg Tab, 25 MG PO BID, TAB 08/07/19 Metoprolol Tartrate (METOPROLOL TARTRATE) 50 Mg Tablet, 100 MG PO BID, TAB 08/07/19 Butalb/Acetaminophen/Caffeine (NZIDYR-PWSZVULN-FTFL 50-325-40) 1 Each Tablet, 1- 2 TAB PO PRN 08/07/19 Amlodipine Besylate (NORVASC) 10 Mg Tab, 10 MG PO HS 03/11/14 Lisinopril (LISINOPRIL) 40 Mg Tablet, 40 MG PO HS 03/11/14 NICOLASA MULLEN MD May 06, 2020 20:17
--- OUTSIDE RECORDS SUMMARY | 2020-05-06 20:36 | XMS REPORT | Summary of Care ---
Author Author [facility] Organization [facility] Address Unknown Phone Unavailable Encounter EMI [employer](MADELAINE) [id number] Date(s): 08/11/17 - 08/11/17 [facility] [address] [place] [address]- [phone] Discharge Disposition: Home or Self Care Attending Physician: Rod Zaidi MD Referring Physician: Rod Zaidi MD Vital Signs 1 2 3 Most recent to oldest [Reference Range]: 157.48 cm (08/10/17 9:11 AM) Height 97.7 DegF (08/10/17 8:58 AM) Temperature Oral [96.4-99.1 DegF] 125/75 mmHg (08/11/17 9:15 AM) 128/78 mmHg (08/11/17 8:45 AM) 114/71 mmHg (08/11/17 8:15 AM) Blood Pressure [90-140/60-90 mmHg] 18 BRMIN (08/11/17 9:15 AM) 18 BRMIN (08/11/17 8:45 AM) 18 BRMIN (08/11/17 8:15 AM) Respiratory Rate [14-20 BRMIN] 84 bpm (08/10/17 8:58 AM) Peripheral Pulse Rate [60-100 bpm] 128.722 kg (08/10/17 9:11 AM) Weight 51.9 m2 (08/10/17 9:11 AM) Body Mass Index Problem List Condition Effective Dates Status Health Status Informan t Anxiety(Confirmed) Active Asthma(Confirmed) Active Back pain(Confirmed) Active HTN - Active Hypertension(Confirm ed) Kidney Resolved stones(Confirmed) Migraines(Confirmed) Active Neck pain(Confirmed) Active Seasonal Active allergies(Confirmed) Shoulder Active pain(Confirmed) Allergies, Adverse Reactions, Alerts Substance Reaction Severity Status codeine Active Imitrex Active Medications acetaminophen-10 mg/mL INTRAVENOUS solution 1,000 mg, Route: IV, Drug form: INJ, ONCE, Dosing Weight 128.722, kg, For > or = 50 kg, Start date: 08/11/17 8:38:00 BATT PACKER, Stop date: 08/11/17 8:38:00 BATT PACKER Start Date: 08/11/17 Stop Date: 08/11/17 Status: Completed ANES acetaminophen 1,000 mg, Route: PO, Drug form: TAB, ONCE, Dosing Weight 128.722, kg, PRN Pain S core 1-3, Start date: 08/11/17 8:33:00 BATT PACKER Start Date: 08/11/17 Stop Date: 08/11/17 Status: Discontinued ANES albuterol 0.083% inhalation solution 2.49 mg, Route: NEB, Q20Min, Dosing Weight 128.722, kg, PRN Wheezing, Priority: STAT, Start date: 08/11/17 8:33:00 BATT PACKER, Duration: 30 day, Stop date: 09/10/17 8: 32:00 BATT PACKER Start Date: 08/11/17 Stop Date: 08/11/17 Status: Discontinued ANES diphenhydrAMINE 12.5 mg, Route: IVP, Drug form: INJ, Q6H, Dosing Weight 128.722, kg, PRN Itching , Start date: 08/11/17 8:33:00 BATT PACKER, Duration: 30 day, Stop date: 09/10/17 8:32:0 0 BATT PACKER Start Date: 08/11/17 Stop Date: 08/11/17 Status: Discontinued ANES fentaNYL 50 microgram, Route: IVP, Q5Min, Dosing Weight 128.722, kg, PRN Pain Score 7-10, Priority: Routine, Start date: 08/11/17 8:33:00 BATT PACKER, Duration: 2 doses or times, Stop date: Limited # of times Start Date: 08/11/17 Stop Date: 08/11/17 Status: Discontinued ANES fentaNYL 25 microgram, Route: IVP, Q5Min, Dosing Weight 128.722, kg, PRN Pain Score 4-6, Priority: Routine, Start date: 08/11/17 8:33:00 BATT PACKER, Duration: 4 doses or times, Stop date: Limited # of times Start Date: 08/11/17 Stop Date: 08/11/17 Status: Discontinued ANES flumazenil 0.2 mg, Route: IVP, PRN, Dosing Weight 128.722, kg, PRN Benzodiazepine Reversal, Initial dose, Start date: 08/11/17 8:33:00 BATT PACKER, Duration: 30 day, Stop date: 8:32:00 BATT PACKER Start Date: 08/11/17 Stop Date: 08/11/17 Status: Discontinued ANES hydrALAZINE 10 mg, Route: IVP, Q20Min, Dosing Weight 128.722, kg, PRN Elevated BP, Start carla e: 08/11/17 8:33:00 BATT PACKER, Duration: 2 doses or times, Stop date: Limited # of mila es Start Date: 08/11/17 Stop Date: 08/11/17 Status: Discontinued ANES HYDROmorphone 0.5 mg, Route: IVP, Q5Min, Dosing Weight 128.722, kg, PRN Pain Score 7-10, Start date: 08/11/17 8:33:00 BATT PACKER, Duration: 4 doses or times, Stop date: Limited # of times Start Date: 08/11/17 Stop Date: 08/11/17 Status: Discontinued ANES ketOROLAC 30 mg, Route: IVP, ONCE, Dosing Weight 128.722, kg, Start date: 08/11/17 8:33:00 BATT PACKER, Stop date: 08/11/17 8:33:00 BATT PACKER Start Date: 08/11/17 Stop Date: 08/11/17 Status: Discontinued ANES labetalol 10 mg, Route: IVP, Q5Min, Dosing Weight 128.722, kg, PRN Elevated BP, Start date : 08/11/17 8:33:00 BATT PACKER, Duration: 5 doses or times, Stop date: Limited # of time s Start Date: 08/11/17 Stop Date: 08/11/17 Status: Discontinued ANES naloxone 0.4 mg, Route: IVP, Q2MIN, Dosing Weight 128.722, kg, PRN Narcotic Reversal, Sta rt date: 08/11/17 8:33:00 BATT PACKER, Duration: 8 doses or times, Stop date: Limited # of times Start Date: 08/11/17 Stop Date: 08/11/17 Status: Discontinued ANES ondansetron 4 mg, Route: IVP, ONCE, Dosing Weight 128.722, kg, PRN Nausea & Vomiting, Start date: 08/11/17 8:33:00 BATT PACKER Start Date: 08/11/17 Stop Date: 08/11/17 Status: Discontinued ANES oxyCODONE 5 mg, Route: PO, Drug form: TAB, Q4H, Dosing Weight 128.722, kg, PRN Pain Score 4-6, Start date: 08/11/17 8:33:00 BATT PACKER, Duration: 30 day, Stop date: 09/10/17 8:3 2:00 BATT PACKER Start Date: 08/11/17 Stop Date: 08/11/17 Status: Discontinued Lactated Ringers Injection IV 1000 mL 1,000 mL, Rate: 25 ml/hr, Infuse over: 40 hr, Route: IV, Dosing Weight 128.722 k g, Total Volume: 1,000, Start date: 08/11/17 8:27:00 BATT PACKER, Duration: 30 day, Stop date: 09/10/17 8:26:00 BATT PACKER, 2.43, m2 Start Date: 08/11/17 Stop Date: 08/11/17 Status: Discontinued LR IV 1000 mL 1,000 mL, Rate: 25 ml/hr, Infuse over: 40 hr, Route: IV, Dosing Weight 128.722 k g, Total Volume: 1,000, Start date: 08/11/17 6:07:00 BATT PACKER, Duration: 30 day, Stop date: 09/10/17 6:06:00 BATT PACKER, 2.43, m2 Start Date: 08/11/17 Stop Date: 08/11/17 Status: Discontinued metoprolol tartrate 100 mg oral tablet 2 tabs, PO, Daily, 0 Refill(s) Start Date: 08/10/17 Status: Ordered oxyCODONE 5 mg oral tablet 10 mg, Route: PO, Drug form: TAB, ONCE, Dosing Weight 128.722, kg, PRN Pain Scor e 7-10, Start date: 08/11/17 8:34:00 BATT PACKER Start Date: 08/11/17 Stop Date: 08/11/17 Status: Completed PROzac 40 mg oral capsule 40 mg = 1 cap, PO, Daily, 0 Refill(s) Start Date: 08/10/17 Status: Ordered Xyzal PO, QAM, 0 Refill(s) Start Date: 08/10/17 Status: Ordered Results No data available for this section Immunizations No data available for this section Procedures Procedure Date Related Diagnosis Body Site Tubal ligation 1998 EA - Endometrial ablation Hysterectomy Injection into cervical epidural space Open reduction with internal fixation o f trimalleolar fracture of ankle and fixa tion of posterior lip of tibia Social History Social History Type Response Alcohol Current, Type Beer, Liquor. Frequency: 1-2 times per month. Smoking Status Former smoker; Type: Cigare ttes; Exposure to Tobacco Smoke None; Cigarette Smoking Last 365 Days No; Reg Smoking C essation Counseling No Assessment and Plan No data available for this section
--- OUTSIDE RECORDS SUMMARY | 2020-05-06 20:36 | XMS REPORT ---
Author Author DEON Smart Organization Unknown Address Unknown Phone Care Team Providers Care Entry Processor Name Role Phone Bing Patti PP Unavailable Reason for Referral No Reason for Referral was given. History of Present Illness No HPI available. Problems * Normal Routine History And Physical Adult (V70.0); (Active) * Hypertension (401.9); (Active) * Back Pain (724.5); (Active) * Severe Menstrual Pain (Dysmenorrhea) (625.3); (Active) * Acute Upper Respiratory Infection (465.9); (Active) Medication * AmLODIPine Besylate 10 MG Oral Tablet; TAKE 1 TABLET DAILY FOR BLOOD PRESSURE. ; Start Date: 06/07/2013; End Date: (Active) * Lisinopril 40 MG Oral Tablet; TAKE 1 TABLET DAILY (Active) * ZyrTEC Allergy 10 MG Oral Capsule; TAKE 1 CAPSULE DAILY (Active) * CloNIDine HCl TABS; TAKE 1 TABLET Daily PRN Pt not sure of mg (Active) * Hydrocodone-Acetaminophen 7.5-325 MG Oral Tablet; TAKE 1 TABLET EVERY 4 TO 6 HOURS NEEDED FOR PAIN.; Start Date: 06/25/2013 (Active) * Atenolol 100 MG Oral Tablet; TAKE 2 TABLET DAILY (Active) * AmLODIPine Besylate 10 MG Oral Tablet; TAKE 1 TABLET DAILY. (Active) * Cefdinir 300 MG Oral Capsule; TAKE 1 CAPSULE TWICE DAILY.; Start Date: 07/16/2013; End Date: 07/23/2013 (Active) * Benzonatate 100 MG Oral Capsule; TAKE 1 CAPSULE 3 TIMES DAILY.; Start Date: 07/16/2013; End Date: 07/26/2013 (Active) * TraMADol HCl 50 MG Oral Tablet; TAKE 1 TABLET Every twelve hours; Start Date: 07/16/2013; End Date: (Active) * Lidocaine Viscous 2 % Mouth/Throat Solution; 5 ml gargle and spit every 4 hours as needed for sorethroat; Start Date: 07/16/2013; End Date: 07/21/2013 (Active) Allergies and Adverse Reactions * Codeine Derivatives (Active) Past Medical History * History of Hypertension (401.9); (Resolved) * History of Chronic Common Migraine (Without Aura) (346.70); (Resolved) Procedures Procedure Procedure Date Date Completed Status Tubal Ligation - - Resolved Treatment Of The Left Leg - - Resolv ed Family History * Paternal history of Hypertension (V17.49); (Active) * Paternal history of Colon Cancer (V16.0); (Active) * Maternal history of Denial Of Any Significant Medical History (Active) Social History * Marital History - Currently (Active) * Never Used Drugs (Active) * Being A Social Drinker (Active) * No History of Current Every Day Smoker (Denied) * Former Smoker (V15.82); (Active) Treatment Plan * US Abdomen complete [id number] 06/25/2013 Routine * Medication Use 07/16/2013 Routine Advance Directives * No Advance Directives available. Encounters * AUDIT 07/18/2013
--- OUTSIDE RECORDS SUMMARY | 2020-05-06 20:36 | XMS REPORT ---
Author Author DEON Smart Organization Unknown Address Unknown Phone Care Team Providers Care Asbestos Wire Finisher Name Role Phone Bing Patti PP Unavailable Reason for Referral No Reason for Referral was given. History of Present Illness No HPI available. Problems * Normal Routine History And Physical Adult (V70.0); (Active) * Back Pain (724.5); (Active) * Severe Menstrual Pain (Dysmenorrhea) (625.3); (Active) * Acute Upper Respiratory Infection (465.9); (Active) * Hypertension (401.9); (Active) Medication * AmLODIPine Besylate 10 MG Oral Tablet; TAKE 1 TABLET DAILY FOR BLOOD PRESSURE. ; Start Date: 06/07/2013; End Date: (Active) * Lisinopril 40 MG Oral Tablet; TAKE 1 TABLET EVERY DAY; Start Date: 08/12/2013; End Date: (Active) * ZyrTEC Allergy 10 MG Oral Capsule; TAKE 1 CAPSULE DAILY (Active) * CloNIDine HCl TABS; TAKE 1 TABLET Daily PRN Pt not sure of mg (Active) * Atenolol 100 MG Oral Tablet; TAKE 2 TABLET DAILY; Start Date: ; End Date: (Active) Allergies and Adverse Reactions * Codeine Derivatives (Active) Past Medical History * History of Hypertension (401.9); (Resolved) * History of Chronic Common Migraine (Without Aura) (346.70); (Resolved) Procedures Procedure Procedure Date Date Completed Status Tubal Ligation - - Resolved Treatment Of The Left Leg - - Resol ed Family History * Paternal history of [...] (Active) Treatment Plan * US Abdomen complete [id number] 06/25/2013 Routine * Medication Use 07/16/2013 Routine * [Q] LIPID PANEL WITH REFLEX TO DIRECT LDL 07/26/2013 Routine * [QLH] CBC (INCLUDES DIFF/PLT) 07/26/2013 Routine * [QLH] CMP W/EGFR 07/26/2013 Routine * [QLH] TSH, 3RD GENERATION 07/26/2013 Routine Advance Directives * No Advance Directives available. Encounters * AUDIT 08/12/2013
--- OUTSIDE RECORDS SUMMARY | 2020-05-06 20:36 | XMS REPORT ---
Author Author DEON Rosa Organization [employer] Address Unknown Phone Unavailable Care Team Providers Care Radiologic Technologist Mammogram Name Role Phone Kobe Rosa CP Unavailable Allergies No Known Allergies Problems Problem Type Condition Code Onset Dates Condition Statu s Problem Arthralgia of multiple joints M25.50 Active Problem Mixed connective tissue disease M35.1 Active Problem Raynaud disease I73.00 Active Medications No Known Medications Results No Known Results Summary Purpose [employer] Submission
--- OUTSIDE RECORDS SUMMARY | 2020-05-06 20:36 | XMS REPORT | Encounter Summary ---
Author Organization Unknown Address [address] [place] [address] Phone [phone] Care Team Providers Care [employer] Worker Name Role Phone Dr. Georgina Calderon 3 [phone] Kobe Rosa MD 121 [phone] Lux Esteves MD 124 [phone] Tremaine Orellana 130 [phone] Reason for Visit Mixed anxiety and depressive disorder; B enign essential hypertension; Migraine with aura; Seasonal allergy Instructions 1. Seasonal allergy 2. Mixed anxiety and depressive disorder fluoxetine 20 mg capsule fluoxetine 40 mg capsule 3. Benign essential hypertension amlodipine 10 mg tablet hydralazine 25 mg tablet lisinopril 40 mg tablet metoprolol tartrate 100 mg tablet 4. Migraine with aura amitriptyline 10 mg tablet 5. Neck pain 6. Acid reflux omeprazole 20 mg capsule,delayed relea se 7. Morbid obesity learning about healthy weight 8. History of disorder of connective tis amos hydroxychloroquine 200 mg tablet ophthalmology referral - Please cont act patient to schedule. Thank you! 9. Bipolar disorder Discussion Note: None recorded. Plan of Care Reminders Provider Appointments Return to Office on or around 02/24/2020 Shira Calderon MD Lab None recorded. Referral Ophthalmology Referral 11/25/2019 Cole barajas MD Procedures None recorded. Surgeries None recorded. Imaging None recorded. Medications Name Start Date amitriptyline 10 mg tablet TAKE ONE (1) TABLET(S) BY MOUTH ONCE A DAY AT BEDTIME. amlodipine 10 mg tablet TAKE ONE(1) TABLET(S) BY MOUTH ONCE A DAY. bzhwcxobow-eqfoidw-omihxrcz 50 mg-325 mg -40 mg capsule TAKE 1 CAPSULE BY MOUTH EVERY 4 TO 6 HOURS NEEDED cyclobenzaprine 10 mg tablet Take 1 tablet twice a day by oral route. fluoxetine 20 mg capsule TAKE ONE (1) CAPSULE(S) BY MOUTH ONCE A DAY. fluoxetine 40 mg capsule TAKE ONE (1) CAPSULE(S) BY MOUTH ONCE A DAY. hydralazine 25 mg tablet Take one tablet by mouth twice daily hydrocodone 10 mg-acetaminophen 325 mg t ablet as needed hydroxychloroquine 200 mg tablet TAKE ONE (1) TABLET(S) BY MOUTH TWICE A DAY. lisinopril 40 mg tablet TAKE ONE (1) TABLET(S) BY MOUTH ONCE A DAY. metoprolol tartrate 100 mg tablet TAKE ONE (1) TABLET(S) BY MOUTH TWICE A DAY. omeprazole 20 mg capsule,delayed release TAKE ONE (1) CAPSULE(S) BY MOUTH ONCE A DAY NEEDED Xyzal 5 mg tablet Take 1 tablet every day by oral route as needed for 10 days. Medications Administered None recorded. Vitals Height Weight BMI Blood Pressure 5 ft 2 in 306.4 lbs 56 kg/m2 (1) 144/96 mm[H g] (2) 138/90 mm[Hg] Results Lab Results None recorded. Allergies Code Code System Name Reaction Severity Status Onset 360999 RxNorm Celebrex Active 898876 RxNorm Imitrex Flushing Active Problems Name Status Onset Date Source Migraine with Aura Active 06/27/2016 Benign Essential Hypertension Active 06/27/2016 Neck Pain Active 06/27/2016 Body Mass Index 40+ - Severely Obese Active 06/27/2016 History of Hysterectomy for Benign Disease Active 11/22 Mixed Anxiety and Depressive Disorder Active 03/06/2017 History of Disorder of Connective Tissue Active 017 Seasonal Allergy Active 12/07/2017 Closed Fracture of Lateral Malleolus Active 12/08/2017 Morbid Obesity Active 02/27/2019 Severe Obesity Active 05/25/2019 Open Reduction of Fracture with Internal Fixation Active 08/28/2019 Closed Mckeon's Fracture Active 09/17/2019 Bipolar Disorder Active 12/24/2019 Procedures Date Name Performed by 09/25/2015 Hysterectomy (Partial) Information not a vailable 09/25/2008 Orthopedic Surgery Information not avai lable 09/25/1998 Tubal Ligation Information not avai lable Ankle Arthroscopy/surgery Information no t available Partial Hysterectomy Information not lexie ilable Vaccine List Vaccine Type Tdap 03/12/20190.5 mL Social History Tobacco Smoking Status Former Smoker (1/2 PPD) Past Encounters 11/25/2019 Seasonal Allergy; Mixed Anxiety and Depressive Disorder; Benign Essential Hypertension; Migraine with Aura; Neck Pain; Acid Reflux; Morbid Obesity; History of Disorder of Connective Tissue; Bipolar Disorder Georgina Calderon MD: [address] [place] [address], Ph. History of Present Illness Note:44yo female presents for three month follow-up. Last visit 07/26/19. States that evening was down in [place] & fell & tried to break fall on right hand. Ended up breaking arm, radial fracture. Had surgical repair at right wrist with plate & pins at [facility] with Dr Tremaine Orellana the following week. Still went to [facility] with youngest son with arm in sling & fiberglass splint. Did not need PT after surgery - home exercises given.<div>
</div><div>Never started Rexulti & hasn't been back to psychiatry, but notes that mood has been stable on Prozac 60mg qd.</div><div>Has appt with Dr Zaidi, pain management, tomorrow 11/26/19. Tentatively scheduled for next series of Botox in December 2019 for migraine prophylaxis. Has regular botox injections to neck & jaws for TMJ & headache prophylaxis. Clenching her teeth. Has tried regular mouthguard, but doesn't help<div>
</div><div>Here today for medication refills. <div>Pt without c/o today. No SOB or CP. No Lightheadedness. Patient is taking medicine consistently. Not having any issues with them. </div>Is on daily Xyzal for allergies & Flonase nasal spray.</div ><div>
<div>Previously:</div><div><div>Still with increased stress, anxiety, depression over events of this summer. 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 Rtn visit in 1mo (mid- May). Recommended getting out with friends, family, exercise. Pt concerned she is still very 'fragile'. Not suicidal. Would like to increase her fluoxetine from 40mg qd to 60mg qd. Has been on the 40mg dose of Prozac for about 4wks (04/22/19 visit).</div><div>Notes that "prickly heat" rash under breasts has resolved with tx.</div></div></div></div> Review of Systems:ROS as noted in the HPI Review of Systems Comprehensive General Adult ROS Reported By: Patient Constitutional: Constitutional: no fever Eyes: Eyes: no vision change Cardiovascular: Cardiovascular: no chest gladys n Respiratory: Respiratory: no cough, no wh eezing, no shortness of breath Gastrointestinal: Gastrointestinal: no abdomin al pain Integumentary: Skin: no rashes Neurologic: Neurologic: no loss of consc iousness, migraines Psychiatric: Psych: feeling safe in a rel ationship, no alcohol abuse, no hallucinations, no suicidal thoughts, depression, anxiety Physical Exam General Adult Exam (Female), Upper Respiratory Infection Exam Comprehensive Reported By: Patient Constitutional: General Appearance: healthy- appearing, well-developed, obese. Level of Distress: NAD. Ambulation: ambulating normally Psychiatric: Insight: good judgement. Men juwan Status: active and alert, normal mood, normal affect ENMT: Hearing: no hearing loss. Or opharynx: moist mucous membranes Lungs: Respiratory effort: no dyspn ea. Auscultation: breath sounds normal, good air movement, no wheezing, no rales/crackles Cardiovascular: Heart Auscultation: RRR, nor mal S1, normal S2, no murmurs. Neck vessels: no carotid bruits Neurologic: Gait and Station: normal gai t Skin: Inspection and palpation: no rash
--- OUTSIDE RECORDS SUMMARY | 2020-05-06 20:36 | XMS REPORT | Summary of Care ---
Author Organization Unknown Address Unknown Phone Unavailable Encounter [facility] Dax(MADELAINE) [phone] Date(s): 05/22/14 - 05/22/[address] Discharge Disposition: Home Physician Attending: Jose Coleman DO Physician_Referring: Jose Coleman DO Reason for Visit CERVICAL SPONDYLOSIS Vital Signs 1 2 3 Most recent to oldest [Reference Range]: 160.02 cm (05/21/14 12:11 PM) Height 97.4 DegF (05/21/14 11:40 AM) Temperature Oral [96.4-99.1 DegF] 120 mmHg (05/22/14 10:45 AM) 127 mmHg (05/22/14 10:30 AM) 122 mmHg (05/22/14 10:15 AM) Systolic Blood Pressure [90-140 mmHg] 70 mmHg (05/22/14 10:45 AM) 69 mmHg (05/22/14 10:30 AM) 75 mmHg (05/22/14 10:15 AM) Diastolic Blood Pressure [60-90 mmHg] 17 BRMIN (05/22/14 10:45 AM) 14 BRMIN (05/22/14 10:30 AM) 13 BRMIN *LOW* (05/22/14 10:15 AM) Respiratory Rate [14-20 BRMIN] 73 bpm (05/22/14 8:00 AM) 73 bpm (05/21/14 11:40 AM) Peripheral Pulse Rate [60-100 bpm] 116.364 kg (05/21/14 12:11 PM) Weight 45.44 m2 (05/21/14 12:11 PM) Body Mass Index Problem List Condition Effective Dates Status Health Status Informan t Anxiety(Confirmed) Active Asthma(Confirmed) Active Back pain(Confirmed) Active HTN - Active Hypertension(Confirm ed) Kidney Resolved stones(Confirmed) Migraines(Confirmed) Active Neck pain(Confirmed) Active Seasonal Active allergies(Confirmed) Shoulder Active pain(Confirmed) Allergies, Adverse Reactions, Alerts Substance Reaction Severity Status azithromycin Active codeine Active Imitrex Active Medications amLODIPine 10 mg oral tablet 10 mg = 1 tab, PO, Daily, at night, # 30 tab, 0 Refill(s) Special Instructions: at night Start Date: 05/21/14 Status: Ordered atenolol 100 mg oral tablet 200 mg = 2 tab, PO, Daily, at night, 0 Refill(s) Special Instructions: at night Start Date: 05/21/14 Status: Ordered chlorthalidone 25 mg oral tablet 25 mg = 1 tab, PO, Daily, # 30 tab, 0 Refill(s) Start Date: 05/21/14 Status: Ordered cloNIDine 0.1 mg oral tablet 0.1 mg = 1 tab, PO, Daily, at night, 0 Refill(s) Special Instructions: at night Start Date: 05/21/14 Status: Ordered Lactated Ringers Injection IV 1,000 mL 1,000 mL, Rate: 25 ml/hr, Infuse over: 40 hr, Route: IV, Dosing Weight 116.364 k g, Total Volume: 1,000, Start date: 05/22/14 8:11:00, Stop date: 05/22/14 20:00: 00 Start Date: 05/22/14 Stop Date: 05/22/14 Status: Discontinued lisinopril 40 mg oral tablet 40 mg = 1 tab, PO, Daily, at night, # 30 tab, 0 Refill(s) Special Instructions: at night Start Date: 05/21/14 Status: Ordered LORazepam 2 mg oral tablet 2 mg = 1 tab, PO, TID, Anxiety, # 20 tab, 0 Refill(s) Start Date: 05/21/14 Status: Ordered [place] 10/325 oral tablet 1 tab, PO, Daily, as needed for pain, 0 Refill(s) Start Date: 05/21/14 Status: Ordered ProAir HFA 90 mcg/inh inhalation aerosol with adapter 2-3 puffs, INHALATION, Daily, as needed for wheezing, 0 Refill(s) Start Date: 05/21/14 Status: Ordered tizanidine 4 mg oral tablet 4 mg = 1 tab, PO, BID, 0 Refill(s) Start Date: 05/21/14 Status: Ordered Zofran 8 mg oral tablet 8 mg = 1 tab, PO, Daily, 0 Refill(s) Start Date: 05/21/14 Status: Ordered ZyrTEC 10 mg oral tablet 10 mg = 1 tab, PO, Daily, # 30 tab, 0 Refill(s) Start Date: 05/21/14 Status: Ordered Results URINE CHEM Most recent to 1 oldest [Reference Range]: U Preg [Negative] Negative (05/22/14 8:05 AM) Medications Administered During Your Visit No data available for this section Immunizations No data available for this section Procedures Procedure Type Body Site Date of Procedure Related Diag nosis EA - Endometrial ablation Open reduction with internal fixation of trimalleolar fracture of ankle and fixation of posterior lip of tibia Tubal ligation 1998 Social History Social History Type Response Alcohol Use: Current, Type: Liquor, Frequency: 1-2 times per month, Previous treatment: None, Has alcohol use interf ered with work or home life? No, Do you ever drink more than intended? No, Has anyone been hurt or at risk by your drinking? No, Ready to change: No, Concerns about alcohol use in household: No Smoking Status Former smoker, Type: Cigare ttes, Exposure to Tobacco Smoke None, Cigarette Smoking Last 365 Days No, Reg Smoking C essation Counseling No
--- OUTSIDE RECORDS SUMMARY | 2020-05-06 20:36 | XMS REPORT ---
Author Author DEON Allen Organization Unknown Address Unknown Phone Care Team Providers Care Senior Mobile Developer Name Role Phone Leslie Allen PP Unavailable Reason for Referral No Reason for Referral was given. History of Present Illness No HPI available. Problems * Normal Routine History And Physical Adult (V70.0); (Active) * Hypertension (401.9); (Active) * Back Pain (724.5); (Active) Medication * AmLODIPine Besylate 10 MG Oral Tablet; TAKE 1 TABLET DAILY FOR BLOOD PRESSURE. ; Start Date: 06/07/2013; End Date: 07/07/2013 (Active) * Atenolol 100 MG Oral Tablet; TAKE 1 TABLET DAILY.; Start Date: 06/07/2013; End Date: 07/07/2013 (Active) * Lisinopril 40 MG Oral Tablet; TAKE 1 TABLET DAILY (Active) * ZyrTEC Allergy 10 MG Oral Capsule; TAKE 1 CAPSULE DAILY (Active) * CloNIDine HCl TABS; TAKE 1 TABLET Daily PRN Pt not sure of mg (Active) * Hydrocodone-Acetaminophen 7.5-325 MG Oral Tablet; TAKE 1 TABLET EVERY 4 TO 6 HOURS NEEDED FOR PAIN.; Start Date: 06/25/2013 (Active) Allergies and Adverse Reactions * Codeine Derivatives (Active) Past Medical History * History of Hypertension (401.9); (Resolved) * History of Chronic Common Migraine (Without Aura) (346.70); (Resolved) Procedures Procedure Procedure Date Date Completed Status Tubal Ligation - - Resolved Treatment Of The Left Leg - - [facility] ed Family History * Paternal history of [...] Former Smoker (V15.82); (Active) [place] [facility] [place] [address] [place]/25/2013 Routine Advance Directives * No Advance Directives available. Encounters * AUDIT 06/25/2013
--- OUTSIDE RECORDS SUMMARY | 2020-05-06 20:36 | XMS REPORT ---
Author Author DEON Altamirano [facility] eClinicalWorks Address Unknown Phone Unavailable Care Team Providers Care [employer] Driver Name Role Phone Veronica Altamirano Unavailable Allergies, Adverse Reactions, Alerts Substance Reaction Event Type Codeine hives Non Drug Allergy NSAIDS heart palpitations Non Drug Allergy Problems Problem Type Condition Code Onset Dates Condition Statu s Problem Arthralgia of multiple joints M25.50 Active Problem Mixed connective tissue disease M35.1 Active Problem Raynaud disease I73.00 Active Assessment Raynaud disease I73.00 Active Assessment Mixed connective tissue disease M35.1 Active Assessment Arthralgia of multiple joints M25.50 Active Medications Medication Code System Code Instructions Start Date End Date Status Dosage Plaquenil [facility] 38473026520 200 MG Orally Twice a day Active 1 tablet with food or milk Plaquenil ND 77524271175 200 MG Orally Twice a day Active 1 tablet with food or milk Clonidine HCl ND 47351963549 0.1 MG Orally Once a day Active 1 tablet at bedtime Amlodipine Besylate ND 39671894510 10 MG Orally Once a day Active 1 tablet Metoprolol Tartrate ND 50229297218 100 MG Orally Twice a day Active 1 tablet with food Hydrocodone-Acetaminophen ND 02093497605 10-325 MG Orally every 6 hrs Active 1 tablet as needed Xyzal ND 79368900564 5 MG Orally Once a day Activ e 1 tablet in the evening Omeprazole ND 65543893493 20 MG Orally Once a day A ctive 1 capsule Lisinopril ND 11977116601 40 MG Orally Once a day A ctive 1 tablet Amitriptyline HCl ND 23625675329 10 MG Orally Once a day Active 1 tablet Vital Signs Date/Time: May 15, 2018 BMI 54.27 Index Weight 306.4 lbs Height 63 in Temperature 97.8 F Cardiac Monitoring Heart Rate 78 /min Blood Pressure Diastolic 70 mm Hg Blood Pressure Systolic 136 mm Hg Results Name Result Date Reference Range Unit Abnormali ty Flag 1055 SEDIMENTATION RATE ----SEDIMENTATION RATE 13 [id number] 0-20 MM/HOUR 1000 CBC W/AUTO DIFF ----PLATELET COUNT 287 [id number] 130-400 K/UL ----MCV 82.6 11349874 80.0-100.0 fL ----HEMATOCRIT 34.6 88899131 34.0-45.0 % ----BASOPHILS 1.4 48857404 0.0-2.0 % ----MCHC 31.8 80044161 32.0-35.5 G/DL L ----EOSINOPHILS 3.3 18489628 0.0-7.0 % ----MCH 26.3 33470080 27.0-34.0 PG L ----MONOCYTES 8.8 34324449 4.0-13.0 % ----WBC 5.1 95587248 4.0-11.0 K/UL ----HEMOGLOBIN 11.0 27317788 11.5-15.5 G/DL L ----RBC 4.19 99735356 3.80-5.10 M/UL ----LYMPHOCYTES 37.3 05910255 19.0-48.0 % ----RDW 13.3 23383686 11.0-15.0 % ----NEUTROPHILS 49.2 96742255 40.0-74.0 % 9179 COMPREHENSIVE METABOLIC PANEL ----CALC A/G RATIO 1.3 97118912 1.0-2.6 RATIO ----CALC GLOBULIN 3.0 55495238 1.9-3.7 G/DL ----ALKALINE PHOSPHATASE 98 18671441 40-116 U/L ----BILIRUBIN, TOTAL <0.2 13824077 <=1.2 MG/DL ----CHLORIDE 105 20180515 95-107 MEQ/L ----ALT 25 44151014 5-40 U/L ----POTASSIUM 4.2 23425761 3.5-5.4 MEQ/L ----AST 22 20180515 9-40 U/L ----SODIUM 142 21916695 133-146 MEQ/L ----CALC BUN/CREAT 19 20180515 6-28 RATIO ---- eGFR NON- AMER. 105 08075530 >60 ML/MIN/1 .73 ----CALCIUM 8.8 20180515 8.5-10.5 MG/DL ----CARBON DIOXIDE 24 20180515 19-31 MEQ/L ----ALBUMIN 3.8 20180515 3.5-5.2 G/DL ----PROTEIN, TOTAL 6.8 20180515 6.1-8.3 G/DL ----GLUCOSE 130 20180515 70-99 MG/DL H ----BUN 13 20180515 6-20 MG/DL ----CREATININE 0.69 20180515 0.60-1.30 MG/DL ---- eGFR AMER. 122 20180515 >60 ML/MIN/1.73 5083 HIGH SENSITIVITY CRP ----HIGH SENSITIVITY CRP 16.4 [id number] SEE BELOW MG/L H Summary Purpose eClinicalWorks Submission
--- OUTSIDE RECORDS SUMMARY | 2020-05-06 20:36 | XMS REPORT ---
Author DEON Naik Organization eClinicalWorks Address Unknown Phone Unavailable Care Team Providers Care Building Construction Contractor Name Role Phone Kobe Rosa CP Unavailable Allergies No Known Allergies Problems Problem Type Condition Code Onset Dates Condition Statu s Problem Arthralgia of multiple joints M25.50 Active Problem Mixed connective tissue disease M35.1 Active Problem Raynaud disease I73.00 Active Medications No Known Medications Results No Known Results Summary Purpose eClinicalWorks Submission
--- OUTSIDE RECORDS SUMMARY | 2020-05-06 20:36 | XMS REPORT | Summary of Care ---
Author Author [facility] Organization [facility] Address Unknown Phone Unavailable Encounter [facility] Dax(FIN) [phone] Date(s): 04/16/18 - 04/16/18 [facility] Neurology [facility] [address] [place] [address] [phone] Discharge Disposition: Home or Self Care Attending Physician: Carmelina Pak MD Referring Physician: Georgina Calderon MD Vital Signs Most recent to 1 oldest [Reference Range]: Blood Pressure 125/90 mmHg [90-140/60-90 mmHg] (04/16/18 10:56 AM) Peripheral Pulse 81 bpm Rate [60-100 bpm] (04/16/18 10:56 AM) Weight 136.818 kg (04/16/18 10:56 AM) Problem List Condition Effective Dates Status Health Status Informan t Anxiety(Confirmed) Active Asthma(Confirmed) Active Back pain(Confirmed) Active HTN - Active Hypertension(Confirm ed) Kidney Resolved stones(Confirmed) Migraines(Confirmed) Active Neck pain(Confirmed) Active Seasonal Active allergies(Confirmed) Shoulder Active pain(Confirmed) Allergies, Adverse Reactions, Alerts Substance Reaction Severity Status codeine Active Imitrex Active Medications acetaminophen-hydrocodone 325 mg-10 mg oral tablet 1 tab, PO, BID, 0 Refill(s) Start Date: 04/16/18 Status: Ordered amitriptyline 10 mg oral tablet 10 mg = 1 tab, PO, Bedtime, # 30 tab, 0 Refill(s), Pharmacy[id number], pt will need fu if she desires further refills. Start Date: 06/25/18 Stop Date: 07/24/18 Status: Ordered amitriptyline 10 mg oral tablet 10 mg = 1 tab, PO, Bedtime, # 30 tab, 1 Refill(s), [facility] [id number] Start Date: 04/16/18 Stop Date: 06/15/18 Status: Ordered ASA/butalbital/caffeine 325 mg-50 mg-40 mg capsule 2 cap, PO, Daily Start Date: 04/16/18 Stop Date: 04/16/18 Status: Discontinued cyclobenzaprine 10 mg oral tablet 10 mg = 1 tab, PO, BID Start Date: 04/16/18 Status: Ordered hydroxychloroquine sulfate 200 mg oral tablet 200 mg = 1 tab, PO, BID Start Date: 04/16/18 Status: Ordered Results No data available for this section Immunizations No data available for this section Procedures Procedure Date Related Diagnosis Body Site Status Tubal ligation 1998 Completed EA - Endometrial ablation Completed Hysterectomy Completed Injection into cervical epidural space Completed Open reduction with internal fixation of Complete d trimalleolar fracture of ankle and fixa tion of posterior lip of tibia Social History Social History Type Response Alcohol Current, Type Beer, Liquor. Frequency: 1-2 times per month. Smoking Status Former smoker; Type: Cigare ttes; Exposure to Tobacco Smoke None; Cigarette Smoking Last 365 Days No; Reg Smoking C essation Counseling No; Stopped at age: 35; entered on: 04/16/18 Assessment and Plan No data available for this section
--- OUTSIDE RECORDS SUMMARY | 2020-05-06 20:36 | XMS REPORT | Summary of Care ---
Author Author [facility] spital Organization [facility] Address Unknown Phone Unavailable Encounter EMI [employer](MADELAINE) [id number] Date(s): 07/18/16 - 07/18/16 [facility] [address] [place], [place] [address] [phone] Discharge Disposition: Home or Self Care Attending Physician: Rod Zaidi MD Referring Physician: Rod Zaidi MD Vital Signs 1 2 3 Most recent to oldest [Reference Range]: 157.48 cm (07/11/16 10:12 AM) Height 98.4 DegF (07/11/16 10:50 AM) Temperature Oral [96.4-99.1 DegF] 129/88 mmHg (07/18/16 11:00 AM) 107/68 mmHg (07/18/16 10:45 AM) 107/68 mmHg (07/18/16 10:30 AM) Blood Pressure [90-140/60-90 mmHg] 20 BRMIN (07/18/16 11:00 AM) 18 BRMIN (07/18/16 10:45 AM) 19 BRMIN (07/18/16 10:30 AM) Respiratory Rate [14-20 BRMIN] 66 bpm (07/11/16 10:50 AM) Peripheral Pulse Rate [60-100 bpm] 123.182 kg (07/11/16 10:12 AM) Weight 49.67 m2 (07/11/16 10:12 AM) Body Mass Index Problem List Condition Effective Dates Status Health Status Informan t Anxiety(Confirmed) Active Asthma(Confirmed) Active Back pain(Confirmed) Active HTN - Active Hypertension(Confirm ed) Kidney Resolved stones(Confirmed) Migraines(Confirmed) Active Neck pain(Confirmed) Active Seasonal Active allergies(Confirmed) Shoulder Active pain(Confirmed) Allergies, Adverse Reactions, Alerts Substance Reaction Severity Status codeine Active Imitrex Active Medications ANES flumazenil 0.2 mg, Route: IVP, PRN, Dosing Weight 123.182, kg, PRN Benzodiazepine Reversal, Initial dose, Start date: 07/18/16 10:36:00 CDT, Duration: 30 day, Stop date: 1 10/17/15 9:35:00 [employer] Start Date: 07/18/16 Stop Date: 07/18/16 Status: Discontinued ANES hydrALAZINE 10 mg, Route: IVP, Q20Min, Dosing Weight 123.182, kg, PRN Elevated BP, Start carla e: 07/18/16 10:36:00 CDT, Duration: 2 doses or times, Stop date: Limited # of ti mes Start Date: 07/18/16 Stop Date: 07/18/16 Status: Discontinued ANES HYDROmorphone 0.5 mg, Route: IVP, Q5Min, Dosing Weight 123.182, kg, PRN Pain Score 7-10, Start date: 07/18/16 10:36:00 CDT, Duration: 4 doses or times, Stop date: Limited # of times Start Date: 07/18/16 Stop Date: 07/18/16 Status: Discontinued ANES meperidine 12.5 mg, Route: IVP, Q30Min, Dosing Weight 123.182, kg, PRN Other -See Comment, For shivering, Start date: 07/18/16 10:36:00 CDT, Duration: 2 doses or times, St op date: Limited # of times Start Date: 07/18/16 Stop Date: 07/18/16 Status: Discontinued ANES metoprolol 1 mg, Route: IVP, Q5Min, Dosing Weight 123.182, kg, PRN Other -See Comment, Star t date: 07/18/16 10:36:00 CDT, Duration: 5 doses or times, Stop date: Limited # of times Start Date: 07/18/16 Stop Date: 07/18/16 Status: Discontinued ANES morphine Sulfate 4 mg, Route: IVP, Q5Min, Dosing Weight 123.182, kg, PRN Pain Score 7-10, Start d ate: 07/18/16 10:36:00 CDT, Duration: 3 doses or times, Stop date: Limited # of times Start Date: 07/18/16 Stop Date: 07/18/16 Status: Discontinued ANES morphine Sulfate 2 mg, Route: IVP, Q5Min, Dosing Weight 123.182, kg, PRN Pain Score 4-6, Start da te: 07/18/16 10:36:00 CDT, Duration: 5 doses or times, Stop date: Limited # of t imes Start Date: 07/18/16 Stop Date: 07/18/16 Status: Discontinued ANES naloxone 0.4 mg, Route: IVP, Q2MIN, Dosing Weight 123.182, kg, PRN Narcotic Reversal, Sta rt date: 07/18/16 10:36:00 CDT, Duration: 8 doses or times, Stop date: Limited # of times Start Date: 07/18/16 Stop Date: 07/18/16 Status: Discontinued ANES ondansetron 4 mg, Route: IVP, ONCE, Dosing Weight 123.182, kg, PRN Nausea & Vomiting, Start date: 07/18/16 10:36:00 CDT Start Date: 07/18/16 Stop Date: 07/18/16 Status: Discontinued ANES oxyCODONE 5 mg, Route: PO, Drug form: TAB, Q4H, Dosing Weight 123.182, kg, PRN Pain Score 4-6, Start date: 07/18/16 10:36:00 CDT, Duration: 30 day, Stop date: 08/17/16 10 :35:00 [employer] Start Date: 07/18/16 Stop Date: 07/18/16 Status: Discontinued Lactated Ringers (Bolus) IV 500 mL, Route: IV, ONCE, Dosing Weight 123.182 kg, Start date: 07/18/16 7:36:00 CDT, Stop date: 07/18/16 7:36:00 CDT, Bolus Start Date: 07/18/16 Stop Date: 07/18/16 Status: Completed Results No data available for this section Immunizations No data available for this section Procedures Procedure Date Related Diagnosis Body Site Tubal ligation 1998 EA - Endometrial ablation Hysterectomy Injection into cervical epidural space Open reduction with internal fixation o f trimalleolar fracture of ankle and fixa tion of posterior lip of tibia Social History Social History Type Response Alcohol Current, Type Liquor. Freq uency: 1-2 times per month. Previous treatment: None. Alcohol use interferes with work or home: No. Drinks more than intended: No. Others hurt by drinking: No. Ready to change: No. Household alcohol concerns: No. Smoking Status Former smoker; Exposure to Tobacco Smoke None; Cigarette Smoking Last 365 Days No; Reg Smoking Cessation Counseli ng No Assessment and Plan No data available for this section
--- OUTSIDE RECORDS SUMMARY | 2020-05-06 20:36 | XMS REPORT ---
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 complete [id number] 06/25/2013 Routine Advance Directives * No Advance Directives available. Encounters * AUDIT 07/05/2013
--- OUTSIDE RECORDS SUMMARY | 2020-05-06 20:36 | XMS REPORT | Continuity of Care Document ---
Author Author Zhao Villar [facility] DEON [place] Organization [employer] Address Unknown Phone Unavailable Care Team Providers Care Dental Claims Processor Name Role Phone [employer] Unavailable Un available Problems Problem Status Onset Date Classification Date Reported Comments Source UNK Active 1 10/04/2016 Zhao Villar T[place] CERVICAL SPONDYLOSIS Active 05/19/2014 [facility] Arthralgia of multiple joints Active Problem Dany Rosa Mixed connective tissue disease Active Problem Dany Rosa Raynaud disease Active Problem 03/13/2019 Dany Rosa Hypertension Active 10/15/2013 [facility] Back Pain Active 10/15/2013 [facility] Severe Menstrual Pain (Dysmenorrhea) Active 10/15/2013 [facility] Acute Upper Respiratory Infection Active 10/15/2013 [facility] Acute Bronchitis Active 10/15/2013 [facility] 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 10/15/2013 [facility] Anxiety (finding) Active Problem 01/02/2019 [facility]order[facility] Active Problem 01/02/2019 [facility] Backache (finding) Active Problem 01/02/2019 [facility] Hypertensive disorder, systemic arterial (disorder) Active Problem 01/02/2019 [facility] Kidney stone (disorder) Resolv ed Problem 06/2019 [facility] Migraine (disorder) Active Problem 01/02/2019 [facility] Neck pain (finding) Active Problem 01/02/2019 [facility] Seasonal allergic rhinitis (disorder) Active Problem 06/2019 [facility] Shoulder pain (finding) Active Problem 01/02/2019 [facility] Medications Medication Details Route Status Patient Instructions Ordering Provider Order Date Source amitriptyline 10 mg oral tablet 10 mg = 1 tab, PO, Bedtime, # 30 tab, 0 Refill(s), [facility] [id number], pt will need fu if she desires further refills. Active 06/25/2018 [facility] amitriptyline 10 mg oral tablet 10 mg = 1 tab, PO, Bedtime, # 30 tab, 1 Refill(s), [email or web address] [id number] Active 04/16/2018 [facility] Aspirin 325 MG / butalbital 50 MG / Caff eine 40 MG Oral Capsule 2 cap, PO, Daily Inactive 04/16/2018 [facility] cyclobenzaprine 10 mg oral tablet 10 mg = 1 tab, PO, BID Active 04/16/2018 [facility] Hydroxychloroquine Sulfate 200 MG Oral Tablet 200 mg = 1 tab, PO, BID Active 04/16/2018 [facility] Acetaminophen 325 MG / Hydrocodone Makenzie trate 10 MG Oral Tablet 1 tab, PO, BID, 0 Refill(s) Active 04/16/2018 [facility] Acetaminophen 10 MG/ML Injectable Solution or = 50 kg, Start date: 08/11/17 8:38:00 MENTAL HEALTH COUNSELOR, Stop date: 08/11/17 8:38:00 MENTAL HEALTH COUNSELOR Inactive 08/11/2017 [facility] Oxycodone Hydrochloride 5 MG Oral Tablet 10 mg, Route: PO, Drug form: TAB, ONCE, Dosing Weight 128.722, kg, PRN Pain Score 7-10, Start date: 08/11/17 8:34:00 MENTAL HEALTH COUNSELOR Inactive 08/11/2017 [facility] Ondansetron 4 mg, Route: IVP, ONCE, Dosing Weight 128.722, kg, PRN Nausea & Vomiting, Start date: 08/11/17 8:33:00 MENTAL HEALTH COUNSELOR Inactive 08/11/2017 [facility] Acetaminophen 1,000 mg, Route: PO, Drug form: TAB, ONCE, Dosing Weight 128.722, kg, PRN Pain Score 1-3, Start date: 08/11/17 8:33:00 MENTAL HEALTH COUNSELOR Inactive 08/11/2017 [facility] Hydralazine 10 mg, Route: IVP, Q20Min, Dosing Weight 128.722, kg, PRN Elevated BP, Start date: 08/11/17 8:33:00 MENTAL HEALTH COUNSELOR, Duration: 2 doses or times, Stop date: Limited # of times Inactive 08/11/2017 [facility] Oxycodone 5 mg, Route: PO, Shane g form: TAB, Q4H, Dosing Weight 128.722, kg, PRN Pain Score 4-6, Start date: 08/11/17 8:33:00 MENTAL HEALTH COUNSELOR, Duration: 30 day, Stop date: 09/10/17 8:32:00 MENTAL HEALTH COUNSELOR Inactive 08/11/2017 [facility] Ketorolac 30 mg, Route: IVP, O NCE, Dosing Weight 128.722, kg, Start date: 08/11/17 8:33:00 MENTAL HEALTH COUNSELOR, Stop date: 08/11/17 8:33:00 MENTAL HEALTH COUNSELOR Inactive 08/11/2017 [facility] Labetalol 10 mg, Route: IVP, Q 5Min, Dosing Weight 128.722, kg, PRN Elevated BP, Start date: 08/11/17 8:33:00 MENTAL HEALTH COUNSELOR, Duration: 5 doses or times, Stop date: Limited # of times Inactive 08/11/2017 [facility] Hydromorphone 0.5 mg, Route: I NIGHT CLERK AUDITOR, Q5Min, Dosing Weight 128.722, kg, PRN Pain Score 7-10, Start date: 08/11/17 8:33:00 MENTAL HEALTH COUNSELOR, Duration: 4 doses or times, Stop date: Limited # of times Inactive 08/11/2017 [facility] Albuterol 0.83 MG/ML Inhalant Solution 2.49 mg, Route: NEB, Q20Min, Dosing Weight 128.722, kg, PRN Wheezing, Priority: STAT, Start date: 08/11/17 8:33:00 MENTAL HEALTH COUNSELOR, Duration: 30 day, Stop date: 09/10/17 8:32:00 MENTAL HEALTH COUNSELOR Inactive 08/11/2017 [facility] Diphenhydramine 12.5 mg, Route : IVP, Drug form: INJ, Q6H, Dosing Weight 128.722, kg, PRN Itching, Start date: 08/11/17 8:33:00 MENTAL HEALTH COUNSELOR, Duration: 30 day, Stop date: 09/10/17 8:32:00 MENTAL HEALTH COUNSELOR Inactive 08/11/2017 [facility] Fentanyl 50 microgram, Route: IVP, Q5Min, Dosing Weight 128.722, kg, PRN Pain Score 7-10, Priority: Routine, Start date: 08/11/17 8:33:00 MENTAL HEALTH COUNSELOR, Duration: 2 doses or times, Stop date: Limited # of times Inactive 08/11/2017 [facility] Flumazenil 0.2 mg, Route: IVP, PRN, Dosing Weight 128.722, kg, PRN Benzodiazepine Reversal, Initial dose, Start date: 08/11/17 8:33:00 MENTAL HEALTH COUNSELOR, Duration: 30 day, Stop date: 09/10/17 8:32:00 MENTAL HEALTH COUNSELOR Inactive 08/11/2017 [facility] Naloxone 0.4 mg, Route: IVP, Q 2MIN, Dosing Weight 128.722, kg, PRN Narcotic Reversal, Start date: 08/11/17 8:33:00 MENTAL HEALTH COUNSELOR, Duration: 8 doses or times, Stop date: Limited # of times Inactive 08/11/2017 [facility] Calcium Chloride 0.0014 MEQ/ML / Potassi um Chloride 0.004 MEQ/ML / Sodium Chloride 0.103 MEQ/ML / Sodium Lactate 0.028 MEQ/ML Injectable Solution 1,000 mL, Rate: 25 ml/hr, Infuse over: 4 0 hr, Route: IV, Dosing Weight 128.722 kg, Total Volume: 1,000, Start date: 08/11/17 8:27:00 MENTAL HEALTH COUNSELOR, Duration: 30 day, Stop date: 09/10/17 8:26:00 MENTAL HEALTH COUNSELOR, 2.43, m2 Inactive 08/11/2017 [facility] LR IV 1000 mL 1,000 mL, Rate: 25 ml/hr, Infuse over: 40 hr, Route: IV, Dosing Weight 128.722 kg, Total Volume: 1,000, Start date: 08/11/17 6:07:00 MENTAL HEALTH COUNSELOR, Duration: 30 day, Stop date: 09/10/17 6:06:00 MENTAL HEALTH COUNSELOR, 2.43, m2 Inactive 08/11/2017 [facility] Xyzal PO, QAM, 0 Refill(s) Active 08/10/2017 [facility] Fluoxetine 40 MG Oral Capsule [Prozac] 40 mg = 1 cap, PO, Daily, 0 Refill(s) Active 08/10/2017 [facility] metoprolol tartrate 100 mg oral tablet 2 tabs, PO, Daily, 0 Refill(s) Active 08/10/2017 [facility] Flumazenil 0.2 mg, Route: IVP, PRN, Dosing Weight 123.182, kg, PRN Benzodiazepine Reversal, Initial dose, Start date: 07/18/16 10:36:00 CDT, Duration: 30 day, Stop date: 08/17/16 9:35:00 MENTAL HEALTH COUNSELOR Inactive 07/18/2016 [facility] Morphine 4 mg, Route: IVP, Q5M in, Dosing Weight 123.182, kg, PRN Pain Score 7-10, Start date: 07/18/16 10:36:00 CDT, Duration: 3 doses or times, Stop date: Limited # of times Inactive 07/18/2016 [facility] Hydromorphone 0.5 mg, Route: I NIGHT CLERK AUDITOR, Q5Min, Dosing Weight 123.182, kg, PRN Pain Score 7-10, Start date: 07/18/16 10:36:00 CDT, Duration: 4 doses or times, Stop date: Limited # of times Inactive 07/18/2016 [facility] Oxycodone 5 mg, Route: PO, Shane g form: TAB, Q4H, Dosing Weight 123.182, kg, PRN Pain Score 4-6, Start date: 07/18/16 10:36:00 CDT, Duration: 30 day, Stop date: 08/17/16 10:35:00 MENTAL HEALTH COUNSELOR Inactive 07/18/2016 [facility] Hydralazine 10 mg, Route: IVP, Q20Min, Dosing Weight 123.182, kg, PRN Elevated BP, Start date: 07/18/16 10:36:00 CDT, Duration: 2 doses or times, Stop date: Limited # of times Inactive 07/18/2016 [facility] Metoprolol 1 mg, Route: IVP, Q 5Min, Dosing Weight 123.182, kg, PRN Other -See Comment, Start date: 07/18/16 10:36:00 CDT, Duration: 5 doses or times, Stop date: Limited # of times Inactive 07/18/2016 [facility] Ondansetron 4 mg, Route: IVP, ONCE, Dosing Weight 123.182, kg, PRN Nausea & Vomiting, Start date: 07/18/16 10:36:00 CDT Inactive 07/18/2016 [facility] Naloxone 0.4 mg, Route: IVP, Q 2MIN, Dosing Weight 123.182, kg, PRN Narcotic Reversal, Start date: 07/18/16 10:36:00 CDT, Duration: 8 doses or times, Stop date: Limited # of times Inactive 07/18/2016 [facility] Meperidine 12.5 mg, Route: IVP , Q30Min, Dosing Weight 123.182, kg, PRN Other -See Comment, For shivering, Start date: 07/18/16 10:36:00 CDT, Duration: 2 doses or times, Stop date: Limited # of times Inactive 07/18/2016 [facility] Calcium Chloride 0.0014 MEQ/ML / Potassi um Chloride 0.004 MEQ/ML / Sodium Chloride 0.103 MEQ/ML / Sodium Lactate 0.028 MEQ/ML Injectable Solution 500 mL, Route: IV, ONCE, Dosing Weight 1 23.182 kg, Start date: 07/18/16 7:36:00 CDT, Stop date: 07/18/16 7:36:00 CDT, Bolus Inactive 07/18/2016 [facility] Calcium Chloride 0.0014 MEQ/ML / Potassi um Chloride 0.004 MEQ/ML / Sodium Chloride 0.103 MEQ/ML / Sodium Lactate 0.028 MEQ/ML Injectable Solution 1,000 mL, Rate: 25 ml/hr, Infuse over: 4 0 hr, Route: IV, Dosing Weight 116.364 kg, Total Volume: 1,000, Start date: 05/22/14 8:11:00, Stop date: 05/22/14 20:00:00 Inactive 05/22/2014 [facility] [place] 200 ACTUAT Albuterol 0.09 MG/ACTUAT Mete red Dose Inhaler [ProAir HFA] 2-3 puffs, INHALATION, Daily, as needed for wheezing, 0 Refill(s) Active 05/21/2014 [facility] Chlorthalidone 25 MG Oral Tablet 25 mg = 1 tab, PO, Daily, # 30 tab, 0 Refill(s) Active 05/21/2014 [facility] Atenolol 100 MG Oral Tablet Sp ecial Instructions: at night Active 05/21/2014 [facility] Clonidine Hydrochloride 0.1 MG Oral Tablet Special Instructions: at night Active 05/21/2014 [facility] Acetaminophen 325 MG / Hydrocodone Makenzie trate 10 MG Oral Tablet [[place] 10/325] 1 tab, PO, Daily, as needed for pain, 0 Refill(s) Active 05/21/2014 [facility] lisinopril 40 mg oral tablet S pecial Instructions: at night Active 05/21/2014 [facility] amLODIPine 10 mg oral tablet S pecial Instructions: at night Active 05/21/2014 [facility] LORazepam 2 mg oral tablet 2 m g = 1 tab, PO, TID, Anxiety, # 20 tab, 0 Refill(s) Active 05/21/2014 [facility] Ondansetron 8 MG Oral Tablet [Zofran] 8 mg = 1 tab, PO, Daily, 0 Refill(s) Active 05/21/2014 [facility] tizanidine 4 mg oral tablet 4 mg = 1 tab, PO, BID, 0 Refill(s) Active 05/21/2014 [facility] cetirizine hydrochloride 10 MG Oral Tablet [Zyrtec] 10 mg = 1 tab, PO, Daily, # 30 tab, 0 Refill(s) Active 05/21/2014 [facility] Fluconazole 150 MG Oral Tablet ; Start Date: 10/15/2013; End Date: (Active) Active 10/15/2013 [facility] Azithromycin 250 MG Oral Tablet ; Start Date: 10/01/2013; End Date: (Active) Active 10/01/2013 [facility] Hydrocodone-Homatropine 5-1.5 MG/5ML Oral Syrup ; Start Date: 10/01/2013 (Active) Active 10/01/2013 [facility] Cefdinir 300 MG Oral Capsule ; Start Date: 10/01/2013 (Active) Active 10/01/2013 [facility] Lisinopril 40 MG Oral Tablet ; Start Date: 08/12/2013; End Date: (Active) Active 08/12/2013 [facility] Cefdinir 300 MG Oral Capsule ; Start Date: 07/16/2013; End Date: 07/23/2013 (Active) Active 07/16/2013 [facility] Benzonatate 100 MG Oral Capsule ; Start Date: 07/16/2013; End Date: 07/26/2013 (Active) Active 07/16/2013 [facility] TraMADol HCl 50 MG Oral Tablet ; Start Date: 07/16/2013; End Date: (Active) Active 07/16/2013 [facility] Lidocaine Viscous 2 % Mouth/Throat Solution ; Start Date: 07/16/2013; End Date: 07/21/2013 (Active) Active 07/16/2013 [facility] Hydrocodone-Acetaminophen 7.5-325 MG Oral Tablet ; Start Date: 06/25/2013 (Active) Active 06/25/2013 [facility] AmLODIPine Besylate 10 MG Oral Tablet ; Start Date: 06/07/2013; End Date: 03/30/2014 (Active) Active 06/07/2013 [facility] Atenolol 100 MG Oral Tablet ; Start Date: 06/07/2013; End Date: (Active) Active 06/07/2013 [facility] Atenolol 100 MG Oral Tablet ; Start Date: ; End Date: (Active) Inactive [facility] Plaquenil 1 tablet with food o r milk Orally Active 200 MG Orally Twice a day [place] Dany Rosa Omeprazole 1 capsule Orally Active 20 MG Orally Once a day [place] Dany Rosa Xyzal 1 tablet in the evening Orally Active 5 MG Orally Once a day [place] Dany Rosa Metoprolol Tartrate 1 tablet w ith food Orally Active 100 MG Orally Twice a day [place] Dany Rosa BusPIRone HCl 1 tablet Orally Active 15 MG Orally TID Gopal Issac Rosa Clonidine HCl 1 tablet at bedt wendi Orally Active 0.1 MG Orally Once a day [place] Dany Rosa Lisinopril 1 tablet Orally Active 40 MG Orally Once a day [place] Dany Rosa Amlodipine Besylate 1 tablet Orally Active 10 MG Orally Once a day [place] Dany Rosa Fluoxetine HCl 1 capsule Orally Active 40 MG Orally Once a day Gopal Dany Rosa Hydrocodone-Acetaminophen 1 ta blet as needed Orally Active 10- 325 MG Orally every 6 hrs Adarsh Rosa Amitriptyline HCl 1 tablet Orally Active 10 MG Orally Once a day [place] Dany Rosa Lisinopril 40 MG Oral Tablet (Active) Active [facility] ZyrTEC Allergy 10 MG Oral Capsule (Active) Active [facility] CloNIDine HCl TABS (Active) Active [facility] Atenolol 100 MG Oral Tablet ( Active) Active [facility] AmLODIPine Besylate 10 MG Oral Tablet (Active) Active [facility] Allergies, Adverse Reactions, Alerts Substance Category Reaction Severity Reaction type Status Date Reported Comments Source NSAIDS Adverse Reaction heart palpitations Adverse Reaction Active 05/15/2018 Dany Rosa Codeine Adverse Reaction hives Adverse Reaction Active 05/15/2018 Dany Rosa Codeine Derivatives drug aller gy drug aller gy Active [facility] codeine Assertion Drug allergy Active [facility] Imitrex Assertion Drug allergy Active [facility] azithromycin Assertion Drug allergy Active [facility] Immunizations No Data Provided for This Section Results Order Name Results Value Reference Range Date Interpretation Comments Source URINE CHEM U Preg Negat di (05/22/14 8:05 AM) Negative 05/22/2014 [facility] Pathology Reports No Data Provided for This Section Diagnostic Reports No Data Provided for This Section Consultation Notes No Data Provided for This Section Discharge Summaries No Data Provided for This Section History and Physicals No Data Provided for This Section Vital Signs Vital Sign Value Date Comments Source Weight 306.4 05/15/2018 Dany Rosa Height 63 0 05/15/2018 Dany Rosa Temperature Oral (F) 97.8 F 05/15/2018 Dany Rosa Heart Rate 78 05/15/2018 Dany Rosa Diastolic (mm Hg) 70 05/15/2018 Dany Rosa Systolic (mm Hg) 136 05/15/2018 Dany Rosa Weight 136.818 04/16/2018 [facility] Systolic (mm Hg) 125 04/16/2018 [facility] Diastolic (mm Hg) 90 04/16/2018 [facility] Heart Rate 81 04/16/2018 [facility] Weight 290 09/07/2017 Dany Rosa Height 63 1 11/08/2016 Dany Rosa Temperature Oral (F) 97.0 F 09/07/2017 Dany Pastranaer Heart Rate 80 09/07/2017 Dany Rosa Diastolic (mm Hg) 70 09/07/2017 Dany Rosa Systolic (mm Hg) 134 09/07/2017 Dany Rosa Systolic (mm Hg) 125 08/11/2017 [facility] Diastolic (mm Hg) 75 08/11/2017 [facility] Respitory Rate 18 08/11/2017 [facility] Systolic (mm Hg) 128 08/11/2017 [facility] Diastolic (mm Hg) 78 08/11/2017 [facility] Respitory Rate 18 08/11/2017 [facility] Respitory Rate 18 08/11/2017 [facility] Systolic (mm Hg) 114 08/11/2017 [facility] Diastolic (mm Hg) 71 08/11/2017 [facility] BMI Calculated 51.9 08/10/2017 [facility] Weight 128.722 08/10/2017 [facility] Height 157.48 cm 08/10/2017 [facility] Heart Rate 84 08/10/2017 [facility] Temperature Oral (F) 97.7 F 08/10/2017 [facility] Respitory Rate 20 07/18/2016 [facility] Systolic (mm Hg) 129 07/18/2016 [facility] Diastolic (mm Hg) 88 07/18/2016 [facility] Systolic (mm Hg) 107 07/18/2016 [facility] Diastolic (mm Hg) 68 07/18/2016 [facility] Respitory Rate 18 07/18/2016 [facility] Systolic (mm Hg) 107 07/18/2016 [facility] Diastolic (mm Hg) 68 07/18/2016 [facility] Respitory Rate 19 07/18/2016 [facility] Heart Rate 66 07/11/2016 [facility] Temperature Oral (F) 98.4 F 07/11/2016 [facility] Weight 123.182 07/11/2016 [facility] BMI Calculated 49.67 07/11/2016 [facility] Height 157.48 cm 07/11/2016 [facility] Systolic (mm Hg) 120 05/22/2014 [facility] Diastolic (mm Hg) 70 05/22/2014 [facility] Respitory Rate 17 05/22/2014 [facility] Systolic (mm Hg) 127 05/22/2014 [facility] Diastolic (mm Hg) 69 05/22/2014 [facility] Respitory Rate 14 05/22/2014 [facility] Diastolic (mm Hg) 75 05/22/2014 [facility] Systolic (mm Hg) 122 05/22/2014 [facility] Respitory Rate 13 05/22/2014 [facility] Heart Rate 73 05/22/2014 [facility] Weight 116.364 05/21/2014 [facility] Height 160.02 cm 05/21/2014 [facility] BMI Calculated 45.44 05/21/2014 [facility] Heart Rate 73 05/21/2014 [facility] Temperature Oral (F) 97.4 F 05/21/2014 [facility] Encounters Location Location Details Encounter Type Encounter Number Reason For Visit Attending Provider ADM Date DC Date Status Source AUDIT [id number] 06/25/2013 06/25/2013 [facility] AUDIT [id number] 07/05/2013 07/05/2013 [facility] AUDIT [id number] 07/18/2013 07/18/2013 [facility] AUDIT [id number] 08/12/2013 08/12/2013 [facility] AUDIT [id number] 10/15/2013 10/15/2013 [facility] Day Surgery [id number] Josekoko Coleman 05/22/2014 05/22/2014 [facility] Day Surgery [id number] See Chin 07/18/2016 07/18/2016 [facility] Day Surgery [id number] See Chin 08/11/2017 08/11/2017 [facility] [id number] [facility] 04[facility]16/2018 [facility] Neurology [facility] Outpatient [id number] [facility] 04/16/2018 04/17/2018 [id number] [facility] 06/15/2018 Active [facility] Ambulatory Pre-Reg [id number] [facility] 06/15/2018 06/15/2018 [facility] Procedures Procedure Code Date Perfomer Comments Source Tubal ligation [id number] 09/25/1998 José Miguel Sharma,[facility] EA - [facility]ometrial [facility] [id number] [id number] Injection into cervical epidural space [id number] [facility] Open reduction with internal fixation of trimalleolar fracture of ankle and fixation of posterior lip of tibia [id number] [facility] Assessment and Plan No Data Provided for This Section Plan of Care Plan of Care Date Source US Abdomen complete [id number] 06/25/2013 Rou tineMedication Use 07/16/2013 Routine[Q] LIPID PANEL WITH REFLEX TO DIRECT LDL 07/26/2013 Routine[QLH] CBC (INCLUDES DIFF/PLT) 07/26/2013 Routine[QLH] CMP W/EGFR 07/26/2013 Routine[QLH] TSH, 3RD GENERATION 07/26/2013 Routine 10/15/2013 [facility] US Abdomen complete [id number] 06/25/2013 Rou tineMedication Use 07/16/2013 Routine[Q] LIPID PANEL WITH REFLEX TO DIRECT LDL 07/26/2013 Routine[QLH] CBC (INCLUDES DIFF/PLT) 07/26/2013 Routine[QLH] CMP W/EGFR 07/26/2013 Routine[QLH] TSH, 3RD GENERATION 07/26/2013 Routine 08/12/2013 [facility] US Abdomen complete [id number] 06/25/2013 Rou tineMedication Use 07/16/2013 Routine 07/18/2013 [facility] US Abdomen complete [id number] 06/25/2013 Routine 07/05/2013 [facility] US Abdomen complete [id number] 06/25/2013 Routine 06/25/2013 [facility] Social History Social History Date Source Social History TypeResponse Alcohol Current, Type Beer, Liquor. Frequency: 1-2 times per month. Smoking Status Former smoker; Type: Cigarettes; Exposure to Tobacco Smoke None; Cigarette Smoking Last 365 Days No; Reg Smoking Cessation Counseling No 08/10/2017 [facility] Social History TypeResponse Alcohol Current, Type Beer, Liquor. Frequency: 1-2 times per month. Smoking Status Former smoker; Type: Cigarettes; Exposure to Tobacco Smoke None; Cigarette Smoking Last 365 Days No; Reg Smoking Cessation Counseling No; Stopped at age: 35; entered on: 04/16/18 08/10/2017 [facility] Social History TypeResponse Alcohol Current, Type Liquor. Frequency: 1-2 times per month. Previous treatment: None. Alcohol use interferes with work or home: No. Drinks more than intended: No. Others hurt by drinking: No. Ready to change: No. Household alcohol concerns: No. Smoking Status Former smoker; Exposure to Tobacco Smoke None; Cigarette Smoking Last 365 Days No; Reg Smoking Cessation Counseling No 07/18/2016 [facility] Social History TypeResponse Alcohol Use: Current, Type: Liquor, Frequency: 1-2 times per month, Previous treatment: None, Has alcohol use interfered with work or home life? No, Do you ever drink more than intended? No, Has anyone been hurt or at risk by your drinking? No, Ready to change: No, Concerns about alcohol use in household: No Smoking Status Former smoker, Type: Cigarettes, Exposure to Tobacco Smoke None, Cigarette Smoking Last 365 Days No, Reg Smoking Cessation Counseling No 05/21/2014 [facility] Marital History - Currently (Active) Never Used Drugs (Active) Being A Social Drinker (Active) No History of Current Every Day Smoker (Denied) Former Smoker (V15.82); (Active) 10/15/2013 [facility] Family History Value Date S ource Paternal history of Hypertension (V17.49 ); (Active) Paternal history of Colon Cancer (V16.0); (Active) Maternal history of Denial Of Any Significant Medical History (Active) 10/15/2013 [facility] Paternal history of Hypertension (V17.49 ); (Active) Paternal history of Colon Cancer (V16.0); (Active) Maternal history of Denial Of Any Significant Medical History (Active) 08/12/2013 [facility] Paternal history of Hypertension (V17.49 ); (Active) Paternal history of Colon Cancer (V16.0); (Active) Maternal history of Denial Of Any Significant Medical History (Active) 07/18/2013 [facility] Paternal history of Hypertension (V17.49 ); (Active) Paternal history of Colon Cancer (V16.0); (Active) Maternal history of Denial Of Any Significant Medical History (Active) 07/05/2013 [facility] Paternal history of Hypertension (V17.49 ); (Active) Paternal history of Colon Cancer (V16.0); (Active) Maternal history of Denial Of Any Significant Medical History (Active) 06/25/2013 [facility] Advance Directives Order Name Results Value Date Source Advance Directives Advance Dir ectives No Advance Directives available. 10/15/2013 [facility] Advance Directives Advance Dir ectives No Advance Directives available. 08/12/2013 [facility] Advance Directives Advance Dir ectives No Advance Directives available. 07/18/2013 [facility] Advance Directives Advance Dir ectives No Advance Directives available. 07/05/2013 [facility] Advance Directives Advance Dir ectives No Advance Directives available. 06/25/2013 [facility] Functional Status No Data Provided for This Section
--- OUTSIDE RECORDS SUMMARY | 2020-05-06 20:36 | XMS REPORT | Summary of Care ---
Author Author [facility] Organization [facility] Address Unknown Phone Unavailable Encounter [facility] [employer](FIN) [phone] Date(s): 04/16/18 - 04/16/18 [facility] Neurology [facility] [address] [place] [address] [phone] Discharge Disposition: Home or Self Care Attending [...] Bedtime, # 30 tab, 1 Refill(s), Pharmacy: [id number] e [id number] Start Date: 04/16/18 Stop Date: 06/15/18 Status: [...]
--- OUTSIDE RECORDS SUMMARY | 2020-05-06 20:36 | XMS REPORT | Summary of Care ---
Author Author [facility] s Organization [facility] Address Unknown Phone Unavailable Encounter HQ Elzbietantr_lady(FIN) [id number] Date(s): 06/15/18 - 06/15/18 [facility] Neurology [facility] [address] [place] [address] Attending Physician: Carmelina Pak MD Referring Physician: Georgina Calderon MD Vital Signs No data available for this section Problem List Condition Effective Dates Status Health Status Informan t Anxiety(Confirmed) Active Asthma(Confirmed) Active Back pain(Confirmed) Active HTN - Active Hypertension(Confirm ed) Kidney Resolved stones(Confirmed) Migraines(Confirmed) Active Neck pain(Confirmed) Active Seasonal Active allergies(Confirmed) Shoulder Active pain(Confirmed) Allergies, Adverse Reactions, Alerts Substance Reaction Severity Status codeine Active Imitrex Active Medications No data available for this section Results No data available for this section [...]
--- OUTSIDE RECORDS SUMMARY | 2020-05-06 20:36 | XMS REPORT | Continuity of Care Document ---
Author Author [facility] Organization [facility] Address [address] [place] [address] [address] [place] [address] Phone Unavailable Care Team Providers Care Pipe Coremaker Name Role Phone MARSHALL ROSENBERG MD PCP Lexy CONKLIN Attphys Unavailable Zack Pak Attphys Harriet Zaidi Attphys Sean Coleman Attphys Payers Payer Name Policy Type Policy Number Effective Date Expiration Date S ource Imaging Special [id number] [facility] Hmo [id number] I [facility] Miscellaneous Hmo [id number] 2005 00:00:00 [facility] Problems Condition Name Condition Details Condition Category Status Onset Date Resolution Date Last Treatment Date Treating Clinician Comments Source Bipolar disorder Bipolar Disorder Problem Active 2019-12-24 00:00:00 [facility] Closed Mckeon's fracture Closed Mckeon's Fracture Problem Acti ve 2019-09-17 00:00:00 [facility] Open reduction of fracture with internal fixation Open Reduction of Fracture with Internal Fixation Problem Active 2019-08-28 00:00:00 [facility] Severe obesity Severe Obesity Problem Active 2019-05-25 00:00:00 [facility] Morbid obesity Morbid Obesity Problem Active 2019-02-27 00:00:00 [facility] Closed fracture of lateral malleolus Closed Fracture of Late ral Malleolus Problem Active 2017-12-08 00:00:00 [facility] Seasonal allergy Seasonal Allergy Problem Active 2017-12-07 00:00:00 [facility] UNK UNK Active 08/04/2017 Zhao Villar,NOELLE Ziegler Diagnosis Active 2017-08-04 00:00:00 2017-08-11 05:36:00 Zhao Villar History of disorder of connective tissue History of Di sorder of Connective Tissue Problem Active 2017-06-17 00:00:00 [facility] Mixed anxiety and depressive disorder Mixed Anxiety and Depr essive Disorder Problem Active 2017-03-06 00:00:00 [facility] History of hysterectomy for benign disease History of Hysterectomy for Benign Disease Problem Active 2016-11-22 00:00:00 [facility] Migraine with aura Migraine with Aura Problem Active 2016-06-27 00:00:0 0 [facility] Benign essential hypertension Benign Essential Hypertension Problem Active 2016-06-27 00:00:00 [facility] Neck pain Neck Pain Problem Active 2016-06-27 00:00:00 [facility] Body mass index 40+ - severely obese Body Mass Index 40+ - S everely Obese Problem Active 2016-06-27 00:00:00 [facility] CERVICAL SPONDYLOSIS CERV ICAL SPONDYLOSIS Active 05/19/2014 [facility] Diagnosis Active 2014-05-19 00:00:00 2014-05-22 08:28:00 Zhao Villar Kidney stone (disorder) Kidn ey stone (disorder) Resolved Problem 01/02/2019 José Miguel Sharma, Jessica,[facility] Problem Resolved 2019-01-02 11:15:42 Zhao Villar Arthralgia of multiple joints Arthralgia of multiple joints Active Problem 03/13/2019 Dany Rosa Problem Active 2019-03-13 02:45:58 Zhao Villar Mixed connective tissue disease Mixed connective tissue disease Active Problem 03/13/2019 Dany Rosa Problem Active 2019-03-13 02:45:58 Zhao Villar Raynaud disease Rayn aud disease Active Problem 03/13/2019 Dany Rosa Problem Active 2019-03-13 02:45:58 Zhao Villar Hypertension Hype rtension Active 10/15/2013 [facility] Problem Active 2013-10-15 20:45:49 Eyal Villar Back Pain Back Pain Active 10/15/2013 [facility] Problem Active 2013-10-15 20:45:49 Zhao Villar Severe Menstrual Pain (Dysmenorrhea) Severe Menstrual Pain (Dysmenorrhea) Active 10/15/2013 [facility] Problem Active 2013-10-15 20:45:49 [facility] Acute Upper Respiratory Infection Acute Upper Respiratory Infection Active 10/15/2013 [facility] Problem Active 2013-10-15 20:45:49 [facility] Acute Bronchitis Acut e Bronchitis Active 10/15/2013 [facility] Problem Active 2013-10-15 [facility]49 [facility] 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 Problem Active 2019-01-02 11:15:42 [facility] Backache (finding) Back ache (finding) Active Problem 01/02/[address] [facility] Problem Active 2019-01-02 11:15:42 Memisaiah Villar Hypertensive disorder, systemic arterial (disorder) Hypertensive disorder, systemic arterial (disorder) Active Problem 01/02/[address] [facility] Problem Active 2019-01-02 11:15:42 [facility] Migraine (disorder) Migr sandee (disorder) Active Problem 01/02/2019 [facility] Problem Active 2019-01-02 11:15:42 Memisaiah Villar Seasonal allergic rhinitis (disorder) Seasonal allergic rhinitis (disorder) Active Problem 01/02/2019 [facility] Problem Active 2019-01-02 11:15:42 [facility] Shoulder pain (finding) Shou lder pain (finding) Active Problem 01/02/2019 [facility] Problem Active 2019-01-02 11:15:42 [facility] Allergies, Adverse Reactions, Alerts Allergy Name Allergy Type Status Severity Reaction(s) Onset Date Inacti ve Date Treating Clinician Comments Source PLASTIC TAPE Allergy to Substance Active 2019-07-27 00:00:0 0 [facility] Z PACK Allergy to Substance Active 2019-07-27 00:00:00 [facility] Codeine Codeine Active hives 2018-05-15 00:00:00 [facility] Celebrex Allergy to substance Active [facility] Imitrex Allergy to substance Active [place] [facility] Codeine Derivatives Codeine Derivatives Active [facility] codeine codeine Active [facility] Imitrex Imitrex Active [facility] azithromycin azithromycin Active [facility] Family History Family Member Diagnosis Comments Start Date Stop Date Source Unknown Family Member Family History 2013-06-25 22:01:02 2 22:01:02 [facility] Social History Social Habit Start Date Stop Date Quantity Comments Source Social History 2013-10-15 20:45:49 2013-10-15 20:45:49 [facility] Smoking Status Start Date Stop Date Source Former Smoker [facility] P ractice Medications Ordered Medication Name Filled Medication Name Start Date Stop Da te Current Medication? Ordering Clinician Indication Dosage Frequency Signature (SIG) Comments Components Source amitriptyline 10 mg oral tablet 2018-06-25 20:41:04 Yes 10 mg = 1 tab, PO, Bedtime, # 30 tab, 0 Refill(s), Pharmacy: [id number], pt will need fu if she desires further refills. [facility] Plaquenil 2018-05-18 02:47:45 Yes Veronica Altamirano 1 tablet with food or milk [facility] Omeprazole 2018-05-18 02:47:45 Yes Veronica Altamirano [address] [facility] Xyzal 2018-05-18 02:47:45 Yes Veronica Altamirano [address] tablet in the evening [facility] Metoprolol Tartrate 2018-05-18 02:47:45 Yes Veronica Walla ce [address] [facility] Clonidine HCl 2018-05-18 02:47:45 Yes Veronica Altamirano 1 tablet at bedtime [facility] Lisinopril 2018-05-18 02:47:45 Yes Veronica Altamirano [address] [facility] Amlodipine Besylate 2018-05-18 02:47:45 Yes Veronica Altamirano [address] [facility] Hydrocodone-Acetaminophen 2018-05-18 02:47:45 Yes Veronica Altamirano [address] [facility] Amitriptyline HCl 2018-05-18 02:47:45 Yes Veronicapaulie Pastranaace 1 tablet Zhao Villar amitriptyline 10 mg oral tablet 2018-04-16 16:48:00 Yes 10 mg = 1 tab, PO, Bedtime, # 30 tab, 1 Refill(s), Pharmacy: [facility] [id number] Zhao Villar Aspirin 325 MG / butalbital 50 MG / Caffeine 40 MG Oral Caps ule 2018-04-16 16:00:00 No 2 cap, PO, Daily Zhao Villar cyclobenzaprine 10 mg oral tablet 2018-04-16 16:00:00 Yes 10 mg = 1 tab, PO, BID Zhao Villar Hydroxychloroquine Sulfate 200 MG Oral Tablet 2018-04-16 16:00:0 0 Yes 200 mg = 1 tab, PO, BID Zhao Villar Acetaminophen 325 MG / Hydrocodone Bitartrate 10 MG Oral Tab let 2018-04-16 16:00:00 Yes 1 tab, PO, BID, 0 Refill(s) [facility] Acetaminophen With Codeine (Tylenol With Codeine #3 Ta blet) 1 Each Tablet Acetaminophen With Codeine (Tylenol With Codeine #3 Tablet) 1 Each Tablet 2017-12-06 00:00:00 Yes Mahamed Ng Md 300 Every 4 Hours as needed for Pain [facility] Diazepam (Valium) 5 Mg Tablet Diazepam (Valium) 5 Mg Tablet 2017 00:00:00 Yes Mahamed Ng Md 5 Three Times A Day a s needed for Pain [facility] BusPIRone HCl 2017-09-13 03:47:49 Yes Isa Valenciaf 1 tablet [facility] Fluoxetine HCl 2017-09-13 03:47:49 Yes Isa Herron 1 capsule [facility] Acetaminophen 10 MG/ML Injectable Solution 2017-08-11 14:38:00 No or = 50 kg, Start date: 08/11/17 8:38:00 TELEPHONE DIRECTORY DELIVERER, Stop date: 08/11/17 8:38:00 TELEPHONE DIRECTORY DELIVERER Zhao Villar Oxycodone Hydrochloride 5 MG Oral Tablet 2017-08-11 14:34:00 No 10 mg, Route: PO, Drug form: TAB, ONCE, Dosing Weight 128.722, kg, PRN Pain Score 7-10, Start date: 08/11/17 8:34:00 TELEPHONE DIRECTORY DELIVERER [facility] Ondansetron 2017-08-11 14:33:00 No 4 mg, Route: IVP, ONCE, Dosing Weight 128.722, kg, PRN Nausea & Vomiting, Start date: 08/11/17 8:33:00 [facility] Acetaminophen 2017-08-11 14:33:00 No 1,000 mg, Route: PO, Drug form: TAB, ONCE, Dosing Weight 128.722, kg, PRN Pain Score 1-3, Start date: 08/11/17 8:33:00 [facility] Hydralazine 2017-08-11 14:33:00 No 10 mg, Route: IVP, Q20Min, Dosing Weight 128.722, kg, PRN Elevated BP, Start date: 08/11/17 8:33:00 TELEPHONE DIRECTORY DELIVERER, Duration: 2 doses or times, Stop date: Limited # of times [facility] Oxycodone 2017-08-11 14:33:00 No 5 mg, Route: PO, Drug form: TAB, Q4H, Dosing Weight 128.722, kg, PRN Pain Score 4-6, Start date: 08/11/17 8:33:00 TELEPHONE DIRECTORY DELIVERER, Duration: 30 day, Stop date: 09/10/17 8:32:00 [facility] Ketorolac 2017-08-11 14:33:00 No 30 mg, Route: IVP, ONCE, Dosing Weight 128.722, kg, Start date: 08/11/17 8:33:00 TELEPHONE DIRECTORY DELIVERER, Stop date: 08/11/17 8:33:00 [facility] Labetalol 2017-08-11 14:33:00 No 10 mg, Route: IVP, Q5Min, Dosing Weight 128.722, kg, PRN Elevated BP, Start date: 08/11/17 8:33:00 TELEPHONE DIRECTORY DELIVERER, Duration: 5 doses or times, Stop date: Limited # of times [facility] Hydromorphone 2017-08-11 14:33:00 No 0.5 mg, Route: IVP, Q5Min, Dosing Weight 128.722, kg, PRN Pain Score 7-10, Start date: 08/11/17 8:33:00 TELEPHONE DIRECTORY DELIVERER, Duration: 4 doses or times, Stop date: Limited # of times Zhao Villar Albuterol 0.83 MG/ML Inhalant Solution 2017-08-11 14:33:00 No 2.49 mg, Route: NEB, Q20Min, Dosing Weight 128.722, kg, PRN Wheezing, Priority: STAT, Start date: 08/11/17 8:33:00 TELEPHONE DIRECTORY DELIVERER, Duration: 30 day, Stop date: 09/10/17 8:32:00 TELEPHONE DIRECTORY DELIVERER Zhao Villar Diphenhydramine 2017-08-11 14:33:00 No 12.5 mg, Route: IVP, Drug form: INJ, Q6H, Dosing Weight 128.722, kg, PRN Itching, Start date: 08/11/17 8:33:00 TELEPHONE DIRECTORY DELIVERER, Duration: 30 day, Stop date: 09/10/17 8:32:00 TELEPHONE DIRECTORY DELIVERER Zhao Villar Fentanyl 2017-08-11 14:33:00 No 50 microgram, Route: IVP, Q5Min, Dosing Weight 128.722, kg, PRN Pain Score 7-10, Priority: Routine, Start date: 08/11/17 8:33:00 TELEPHONE DIRECTORY DELIVERER, Duration: 2 doses or times, Stop date: Limited # of times Zhao Villar Flumazenil 2017-08-11 14:33:00 No 0.2 mg, Route: IVP, PRN, Dosing Weight 128.722, kg, PRN Benzodiazepine Reversal, Initial dose, Start date: 08/11/17 8:33:00 TELEPHONE DIRECTORY DELIVERER, Duration: 30 day, Stop date: 09/10/17 8:32:00 TELEPHONE DIRECTORY DELIVERER [facility] Naloxone 2017-08-11 14:33:00 No 0.4 mg, Route: IVP, Q2MIN, Dosing Weight 128.722, kg, PRN Narcotic Reversal, Start date: 08/11/17 8:33:00 TELEPHONE DIRECTORY DELIVERER, Duration: 8 doses or times, Stop date: Limited # of times Zhao Villar Calcium Chloride 0.0014 MEQ/ML / Potassi um Chloride 0.004 MEQ/ML / Sodium Chloride 0.103 MEQ/ML / Sodium Lactate 0.028 MEQ/ML Injectable Solution 2017-08-11 14:27:00 No 1,000 mL, Rate: 25 ml/hr, Infuse over: 40 hr, Route: IV, Dosing Weight 128.722 kg, Total Volume: 1,000, Start date: 08/11/17 8:27:00 TELEPHONE DIRECTORY DELIVERER, Duration: 30 day, Stop date: 09/10/17 8:26:00 TELEPHONE DIRECTORY DELIVERER, 2.43, m2 [facility] LR IV 1000 mL 2017-08-11 12:07:00 No 1,000 mL, Rate: 25 ml/hr, Infuse over: 40 hr, Route: IV, Dosing Weight 128.722 kg, Total Volume: 1,000, Start date: 08/11/17 6:07:00 TELEPHONE DIRECTORY DELIVERER, Duration: 30 day, Stop date: 09/10/17 6:06:00 TELEPHONE DIRECTORY DELIVERER, 2.43, m2 [facility] Xyzal 2017-08-10 14:54:00 Yes PO, QAM, 0 Ref ill(s) [facility] Fluoxetine 40 MG Oral Capsule [Prozac] 2017-08-10 14:54:00 Yes 40 mg = 1 cap, PO, Daily, 0 Refill(s) [facility] metoprolol tartrate 100 mg oral tablet 2017-08-10 14:52:00 Yes 2 tabs, PO, Daily, 0 Refill(s) [facility] Flumazenil 2016-07-18 15:36:00 No 0.2 mg, Route: IVP, PRN, Dosing Weight 123.182, kg, PRN Benzodiazepine Reversal, Initial dose, Start date: 07/18/16 10:36:00 CDT, Duration: 30 day, Stop date: 08/17/16 9:35:[address] DEL[address] [facility] Morphine 2016-07-18 15:36:00 No 4 mg, Route: IVP, Q5Min, Dosing Weight 123.182, kg, PRN Pain Score 7-10, Start date: 07/18/16 10:36:00 CDT, Duration: 3 doses or times, Stop date: Limited # of times [facility] Hydromorphone 2016-07-18 15:36:00 No 0.5 mg, Route: IVP, Q5Min, Dosing Weight 123.182, kg, PRN Pain Score 7-10, Start date: 07/18/16 10:36:00 CDT, Duration: 4 doses or times, Stop date: Limited # of times [facility] Oxycodone 2016-07-18 15:36:00 No 5 mg, Route: PO, Drug form: TAB, Q4H, Dosing Weight 123.182, kg, PRN Pain Score 4-6, Start date: 07/18/16 10:36:00 CDT, Duration: 30 day, Stop date: 08/17/16 10:35:[address] DEL[address] [facility] Hydralazine 2016-07-18 15:36:00 No 10 mg, Route: IVP, Q20Min, Dosing Weight 123.182, kg, PRN Elevated BP, Start date: 07/18/16 10:36:00 CDT, Duration: 2 doses or times, Stop date: Limited # of times [facility] Metoprolol 2016-07-18 15:36:00 No 1 mg, Route: IVP, Q5Min, Dosing Weight 123.182, kg, PRN Other -See Comment, Start date: 07/18/16 10:36:00 CDT, Duration: 5 doses or times, Stop date: Limited # of times [facility] Ondansetron 2016-07-18 15:36:00 No 4 mg, Route: IVP, ONCE, Dosing Weight 123.182, kg, PRN Nausea & Vomiting, Start date: 07/18/16 10:36:[address] [facility] Naloxone 2016-07-18 15:36:00 No 0.4 mg, Route: IVP, Q2MIN, Dosing Weight 123.182, kg, PRN Narcotic Reversal, Start date: 07/18/16 10:36:00 CDT, Duration: 8 doses or times, Stop date: Limited # of times [facility] Meperidine 2016-07-18 15:36:00 No 12.5 mg, Route: IVP, Q30Min, Dosing Weight 123.182, kg, PRN Other -See Comment, For shivering, Start date: 07/18/16 10:36:00 CDT, Duration: 2 doses or times, Stop date: Limited # of times [facility] Calcium Chloride 0.0014 MEQ/ML / Potassi um Chloride 0.004 MEQ/ML / Sodium Chloride 0.103 MEQ/ML / Sodium Lactate 0.028 MEQ/ML Injectable Solution 2016-07-18 12:36:00 No 500 mL, Route: IV, ONCE, Dosing Weight 123.182 kg, Start date: 07/18/16 7:36:00 CDT, Stop date: 07/18/16 7:36:00 CDT, Bolus Zhao Villar Calcium Chloride 0.0014 MEQ/ML / Potassi um Chloride 0.004 MEQ/ML / Sodium Chloride 0.103 MEQ/ML / Sodium Lactate 0.028 MEQ/ML Injectable Solution 2014-05-22 13:11:00 No 1,000 mL, Rate: 25 ml/hr, Infuse over: 40 hr, Route: IV, Dosing Weight 116.364 kg, Total Volume: 1,000, Start date: 05/22/14 8:11:00, Stop date: 05/22/14 20:00:00 Me rahat Villar 200 ACTUAT Albuterol 0.09 MG/ACTUAT Metered Dose Inhaler [Pr oAir HFA] 2014-05-21 18:42:00 Yes 2-3 puffs, INHALATION, Daily, as needed for wheezing, 0 Refill(s) [facility] Chlorthalidone 25 MG Oral Tablet 2014-05-21 18:42:00 Yes 25 mg = 1 tab, PO, Daily, # 30 tab, 0 Refill(s) [facility] Atenolol 100 MG Oral Tablet 2014-05-21 18:42:00 Yes Special Instructions: at night [facility] Clonidine Hydrochloride 0.1 MG Oral Tablet 2014-05-21 18:42:00 Yes Special Instructions: at night [facility] Acetaminophen 325 MG / Hydrocodone Bitartrate 10 MG Or al Tablet [Afton 10/325] 2014-05-21 18:42:00 Yes 1 ta b, PO, Daily, as needed for pain, 0 Refill(s) [facility] lisinopril 40 mg oral tablet 2014-05-21 18:41:00 Yes Special Instructions: at night [facility] amLODIPine 10 mg oral tablet 2014-05-21 18:41:00 Yes Special Instructions: at night [facility] LORazepam 2 mg oral tablet 2014-05-21 18:41:00 Yes 2 mg = 1 tab, PO, TID, Anxiety, # 20 tab, 0 Refill(s) Eyal Villar Ondansetron 8 MG Oral Tablet [Zofran] 2014-05-21 18:41:00 Y es 8 mg = 1 tab, PO, Daily, 0 Refill(s) Zhao Villar tizanidine 4 mg oral tablet 2014-05-21 18:41:00 Yes 4 mg = 1 tab, PO, BID, 0 Refill(s) Zhao Villar cetirizine hydrochloride 10 MG Oral Tablet [Zyrtec] 05-21 16:41:00 Yes 10 mg = 1 tab, PO, Daily, # 30 tab, 0 Re fill(s) Zhao Villar ZyrTEC Allergy 10 MG Oral Capsule 2013-10-15 20:45:49 Yes (Active) Zhao Villar CloNIDine HCl TABS 2013-10-15 20:45:49 Yes (Active) Zhao Villar Fluconazole 150 MG Oral Tablet 2013-10-15 06:00:00 Yes ; Start Date: 10/15/2013; End Date: (Active) Zhao Villar Azithromycin 250 MG Oral Tablet 2013-10-01 06:00:00 Yes ; Start Date: 10/01/2013; End Date: (Active) Zhao Villar Hydrocodone-Homatropine 5-1.5 MG/5ML Oral Syrup 2013-10-01 06:00 :00 Yes ; Start Date: 10/01/2013 (Active) Zhao Villar Cefdinir 300 MG Oral Capsule 2013-10-01 06:00:00 Yes ; Start Date: 10/01/2013 (Active) Zhao Villar Lisinopril 40 MG Oral Tablet 2013-08-12 06:00:00 Yes ; Start Date: 08/12/2013; End Date: (Active) Zhao Villar Lisinopril 40 MG Oral Tablet 2013-07-18 23:30:31 Yes (Active) Zhao Villar Atenolol 100 MG Oral Tablet 2013-07-18 23:30:31 Yes (Active) Zhao Villar AmLODIPine Besylate 10 MG Oral Tablet 2013-07-18 23:30:31 Y es (Active) Zhao Villar Cefdinir 300 MG Oral Capsule 2013-07-16 05:00:00 Yes ; Start Date: 07/16/2013; End Date: 07/23/2013 (Active) Zhao Villar Benzonatate 100 MG Oral Capsule 2013-07-16 05:00:00 Yes ; Start Date: 07/16/2013; End Date: 07/26/2013 (Active) Zhao Villar TraMADol HCl 50 MG Oral Tablet 2013-07-16 05:00:00 Yes ; Start Date: 07/16/2013; End Date: (Active) Zhao Villar Lidocaine Viscous 2 % Mouth/Throat Solution 2013-07-16 05:00:00 Yes ; Start Date: 07/16/2013; End Date: 07/21/2013 (Active) Zhao Villar Hydrocodone-Acetaminophen 7.5-325 MG Oral Tablet 2013-06-25 05:00:00 Yes ; Start Date: 06/25/2013 (Active) Zhao Villar AmLODIPine Besylate 10 MG Oral Tablet 2013-06-07 05:00:00 Y es ; Start Date: 06/07/2013; End Date: 03/30/2014 (Active) Zhao Villar Atenolol 100 MG Oral Tablet 2013-06-07 05:00:00 Yes ; Start Date: 06/07/2013; End Date: (Active) Zhao Villar Atenolol 100 MG Oral Tablet Yes ; Start Date: ; End Date: (Active) Zhao Villar Albuterol Sulfate (Proair Hfa Inhaler*) 8.5 Gm Inh Alb uterol Sulfate (Proair Hfa Inhaler*) 8.5 Gm Inh Yes As Needed [facility] Amlodipine Besylate (Norvasc) 10 Mg Tab Amlodipine Besylate (Norvasc) 10 Mg Tab Yes 10 Bedtime [facility] Atenolol Atenolol Yes 200 Bedtime [facility] Clonidine Hcl 0.1 Mg Tablet Clonidine Hcl 0.1 Mg Tablet Yes .1 Daily [facility] Dexlansoprazole (Dexilant) 60 Mg Cap. Dexlansopra zole (Dexilant) 60 Mg Cap. Yes 60 Daily [facility] Lisinopril 40 Mg Tablet Lisinopril 40 Mg Tablet Yes 40 Bedtime [facility] amitriptyline 50 mg tablet Take 1 tablet every day by oral route. amitriptyline 50 mg tablet Take 1 tablet every day by oral route. No amitriptyline 50 mg tablet Take 1 tablet every day by oral route. [facility] amlodipine 10 mg tablet TAKE ONE(1) TABLET(S) BY MOUTH ONCE A DAY. amlodipine 10 mg tablet TAKE ONE(1) TABLET(S) BY MOUTH ONCE A DAY. No amlodipine 10 mg tablet TAKE ONE(1) TABLET(S) BY MOUTH ONCE A DAY. [facility] buspirone 15 mg tablet Take 1 tablet 3 times a day by oral route. buspirone 15 mg tablet Take 1 tablet 3 times a day by oral route. No buspirone 15 mg tablet Take 1 tablet 3 times a day by oral route. [facility] mmlffzcpfa-kzzvnochcglpc-xpocqsgv 50 mg- 300 mg-40 mg capsule Take 1 capsule(s) every 6 hours by oral route prn rehshqeftz-uvbswnatejwca-nctxaezq 50 mg- 300 mg- 40 mg capsule Take 1 capsule(s) every 6 hours by oral route prn No cecahkdkxi-jtckrperkdwit-htzjqfdr 50 mg-300 mg-40 mg capsule Take 1 capsule(s) every 6 hours by oral route prn [facility] diazepam 10 mg tablet TAKE 1 TABLET BY MOUTH TWICE ANDRES LY NEEDED diazepam 10 mg tablet TAKE 1 TABLET BY MOUTH TWICE DAILY NEEDED No diazepam 10 mg tablet TAKE 1 TABLET BY MOUTH TWICE DAILY NEEDED [facility] fluoxetine 40 mg capsule Take 2 capsules every day by oral route. fluoxetine 40 mg capsule Take 2 capsules every day by oral route. No fluoxetine 40 mg capsule Take 2 capsules every day by oral route. [facility] hydrocodone 10 mg-acetaminophen 325 mg tablet as neede d hydrocodone 10 mg- acetaminophen 325 mg tablet as needed No hydrocodone 10 mg- acetaminophen 325 mg tablet as needed [facility] hydroxychloroquine 200 mg tablet TAKE ONE (1) TABLET(S ) BY MOUTH TWICE A DAY. hydroxychloroquine 200 mg tablet TAKE ONE (1) TABLET(S) BY MOUTH TWICE A DAY. No hydroxychloroq uine 200 mg tablet TAKE ONE (1) TABLET(S) BY MOUTH TW[facility]. [facility] mg tablet TAKE ONE (1) TABLET(S) BY MOUT H ONCE A DAY. lisinopril 40 mg tablet TAKE ONE (1) TABLET(S) BY MOUTH ONCE A DAY. No lisinopril 40 mg tablet TAKE ONE (1) TABLET(S) BY MOUTH ONCE A DAY. [facility] methocarbamol 750 mg tablet one tablet twice a day by mouth methocarbamol 750 mg tablet one tablet twice a day by mouth No methocarbamol 750 mg tablet one tablet twice a day by mouth [facility] metoprolol tartrate 100 mg tablet TAKE ONE (1) TABLET( S) BY MOUTH TWICE A DAY. metoprolol tartrate 100 mg tablet TAKE ONE (1) TABLET(S) BY MOUTH TWICE A DAY. No metoprolol tartrate 100 mg tablet TAKE ONE (1) TABLET(S) BY MOUTH TWICE A DAY. [facility] 40 mg tablet,delayed releas e Take 1 tablet every day by oral route. pantoprazole 40 mg tablet,delayed releas e Take 1 tablet every day by oral route. No pantoprazole 40 mg tablet,delayed release Take 1 tablet every day by oral route. [facility] quetiapine 100 mg tablet one tablet at bed time by pat quetiapine 100 mg tablet one tablet at bed time by mouth No quetiapine 100 mg tablet one tablet at bed time by mouth [facility] Atenolol 100 Mg Tablet, 100 Mg Oral Atenolol 100 Mg Tablet, 100 Mg Oral 2014-06-16 00:00:00 No 100 Twice A Day [facility] Butalbital/Aspirin/Caffeine (Fiorinal 50 -325-40 Mg Capsule) 1 Each Capsule, 1 Tab Oral Butalbital/Aspirin/Caffeine (Fiorinal 50 -325-40 Mg Capsule) 1 Each Capsule, 1 Tab Oral 2014-06-16 00:00:00 No 1 As N eeded [facility] Cetirizine Hcl (Zyrtec) 10 Mg Tablet, 10 Mg Oral Cetir izine Hcl (Zyrtec) 10 Mg Tablet, 10 Mg Oral 2014-06-16 00:00:00 No 10 Daily [facility] Chlorthalidone 25 Mg Tablet, 25 Mg Oral Chlorthalidone 25 Mg Tablet, 25 Mg Oral 2014-06-16 00:00:00 No 25 Daily [facility] Hydrocodone Bit/Acetaminophen (Hydrocodo n-Acetaminophn 10-325) 1 Each Tablet, 1 Tab Oral Hydrocodone Bit/Acetaminophen (Hydrocodo n-Acetaminophn 10-325) 1 Each Tablet, 1 Tab Oral 2014-06-16 00:00:00 No 1 As Ne eded [facility] Lorazepam 2 Mg Tablet, 2 Mg Oral Lorazepam 2 Mg Tablet, 2 Mg Ora l 2014-06-16 00:00:00 No 2 As Needed [facility] Ondansetron Hcl (Zofran) 8 Mg Tablet, 8 Mg Oral Ondans etron Hcl (Zofran) 8 Mg Tablet, 8 Mg Oral 2014-06-16 00:00:00 No 8 As Nee ded [facility] Tizanidine Hcl 4 Mg Capsule, 4 Mg Oral Tizanidine Hcl 4 Mg Capsu le, 4 Mg Oral 2014-06-16 00:00:00 No 4 Twice A Day [facility] Immunizations Ordered Immunization Name Filled Immunization Name Date Status Comments Source Tdap Tdap 2019-03-12 16:16:21 Completed [facility] Vital Signs Vital Name Observation Time Observation Value Comments Source Height 2020-04-30 00:00:00 62 [in_i] [facility] Height 2020-04-28 00:00:00 62 [in_i] [facility] Height 2020-04-27 00:00:00 62 [in_i] [facility] Height 2020-04-23 00:00:00 62 [in_i] [facility] Height 2020-04-17 00:00:00 62 [in_i] [facility] Height 2020-04-13 00:00:00 62 [in_i] [facility] Height 2020-04-10 00:00:00 62 [in_i] [facility] Height 2020-04-06 00:00:00 62 [in_i] [facility] Height 2020-03-31 00:00:00 62 [in_i] [facility] Height 2020-03-24 00:00:00 62 [in_i] [facility] BMI (Body Mass Index) 2020-03-24 00:00:00 54 kg/m2 [facility] Body Weight 2020-03-24 00:00:00 295 [lb_av] [facility] Height 2020-03-20 00:00:00 62 [in_i] [facility] Height 2020-02-20 00:00:00 62 [in_i] [facility] BP Diastolic 2019-11-25 00:00:00 96 mm[Hg] [facility] Height 2019-11-25 00:00:00 62 [in_i] [facility] BMI (Body Mass Index) 2019-11-25 00:00:00 56 kg/m2 [facility] BP Systolic 2019-11-25 00:00:00 144 mm[Hg] [facility] Body Weight 2019-11-25 00:00:00 306.4 [lb_av] [facility] BP Diastolic 2019-07-26 00:00:00 102 mm[Hg] [facility] Height 2019-07-26 00:00:00 62 [in_i] [facility] BMI (Body Mass Index) 2019-07-26 00:00:00 56.3 kg/m2 [facility] BP Systolic 2019-07-26 00:00:00 175 mm[Hg] [facility] Body Weight 2019-07-26 00:00:00 308 [lb_av] [facility] BP Diastolic 2019-05-24 00:00:00 88 mm[Hg] [facility] Height 2019-05-24 00:00:00 62 [in_i] [facility] BMI (Body Mass Index) 2019-05-24 00:00:00 56.6 kg/m2 [facility] BP Systolic 2019-05-24 00:00:00 136 mm[Hg] [facility] Body Weight 2019-05-24 00:00:00 309.6 [lb_av] [facility] BP Diastolic 2019-05-03 00:00:00 86 mm[Hg] [facility] Height 2019-05-03 00:00:00 62 [in_i] [facility] BMI (Body Mass Index) 2019-05-03 00:00:00 55.6 kg/m2 [facility] BP Systolic 2019-05-03 00:00:00 132 mm[Hg] [facility] Body Weight 2019-05-03 00:00:00 304 [lb_av] [facility] BP Diastolic 2019-04-22 00:00:00 105 mm[Hg] [facility] Height 2019-04-22 00:00:00 62 [in_i] [facility] BMI (Body Mass Index) 2019-04-22 00:00:00 57.5 kg/m2 [facility] BP Systolic 2019-04-22 00:00:00 157 mm[Hg] [facility] Body Weight 2019-04-22 00:00:00 314.5 [lb_av] [facility] BP Diastolic 2019-03-12 00:00:00 88 mm[Hg] [facility] Height 2019-03-12 00:00:00 62 [in_i] [facility] BMI (Body Mass Index) 2019-03-12 00:00:00 56.9 kg/m2 [facility] BP Systolic 2019-03-12 00:00:00 128 mm[Hg] [facility] Body Weight 2019-03-12 00:00:00 311.2 [lb_av] [facility] BP Diastolic 2019-02-22 00:00:00 84 mm[Hg] [facility] Height 2019-02-22 00:00:00 62 [in_i] [facility] BMI (Body Mass Index) 2019-02-22 00:00:00 57.8 kg/m2 [facility] BP Systolic 2019-02-22 00:00:00 128 mm[Hg] [facility] Body Weight 2019-02-22 00:00:00 316 [lb_av] [facility] BP Diastolic 2018-12-31 00:00:00 70 mm[Hg] [facility] Height 2018-12-31 00:00:00 62 [in_i] [facility] BMI (Body Mass Index) 2018-12-31 00:00:00 55.4 kg/m2 [facility] BP Systolic 2018-12-31 00:00:00 120 mm[Hg] [facility] Body Weight 2018-12-31 00:00:00 303 [lb_av] [facility] BP Diastolic 2018-11-02 00:00:00 88 mm[Hg] [facility] Height 2018-11-02 00:00:00 62 [in_i] [facility] BMI (Body Mass Index) 2018-11-02 00:00:00 56.3 kg/m2 [facility] BP Systolic 2018-11-02 00:00:00 130 mm[Hg] [facility] Body Weight 2018-11-02 00:00:00 308 [lb_av] [facility] Weight 2018-05-15 13:45:00 [facility] Height 2018-05-15 13:45:00 [facility] Temperature Oral (F) 2018-05-15 13:45:00 97.8 F [facility] Heart Rate 2018-05-15 13:45:00 [facility] Diastolic (mm Hg) 2018-05-15 13:45:00 [facility] Systolic (mm Hg) 2018-05-15 13:45:00 [facility] Weight 2018-04-16 15:56:00 [facility] Systolic (mm Hg) 2018-04-16 15:56:00 [facility] Diastolic (mm Hg) 2018-04-16 15:56:00 [facility] [place] Heart Rate 2018-04-16 15:56:00 [facility] Weight 2017-09-07 14:00:00 [facility] Height 2017-09-07 14:00:00 [facility] Temperature Oral (F) 2017-09-07 14:00:00 97.0 F [facility] Heart Rate 2017-09-07 14:00:00 [facility] Diastolic (mm Hg) 2017-09-07 14:00:00 [facility] Systolic (mm Hg) 2017-09-07 14:00:00 [facility] [place] Systolic (mm Hg) 2017-08-11 15:15:00 [facility]al [facility] Diastolic (mm Hg) 2017-08-11 15:15:00 [facility] Respitory Rate 2017-08-11 15:15:00 [facility] [place] Systolic (mm Hg) 2017-08-11 14:45:00 Eyal [facility] Diastolic (mm Hg) 2017-08-11 14:45:00 [facility] [place] Respitory Rate 2017-08-11 14:45:00 [facility] Respitory Rate 2017-08-11 14:15:00 [facility] Systolic (mm Hg) 2017-08-11 14:15:00 [facility] [place] Diastolic (mm Hg) 2017-08-11 14:15:00 [facility] BMI Calculated 2017-08-10 15:11:00 [facility] Weight 2017-08-10 15:11:00 [facility] Height 2017-08-10 15:11:00 157.48 cm [facility] Heart Rate 2017-08-10 14:58:00 [facility] Temperature Oral (F) 2017-08-10 14:58:00 97.7 F [facility] Respitory Rate 2016-07-18 16:00:00 [facility] [place] Systolic (mm Hg) 2016-07-18 16:00:00 [facility]al [facility] Diastolic (mm Hg) 2016-07-18 16:00:00 [facility] [place] Systolic (mm Hg) 2016-07-18 15:45:00 [facility] [place] Diastolic (mm Hg) 2016-07-18 15:45:00 [facility] Respitory Rate 2016-07-18 15:45:00 [facility] Systolic (mm Hg) 2016-07-18 15:30:00 Eyal [facility] Diastolic (mm Hg) 2016-07-18 15:30:00 [facility] Respitory Rate 2016-07-18 15:30:00 [facility] Heart Rate 2016-07-11 15:50:00 [facility] Temperature Oral (F) 2016-07-11 15:50:00 98.4 F [facility] Weight 2016-07-11 15:12:00 [facility] BMI Calculated 2016-07-11 15:12:00 [facility] [place] Height 2016-07-11 15:12:00 157.48 cm [facility] Systolic (mm Hg) 2014-05-22 15:45:00 [facility] [place] Diastolic (mm Hg) 2014-05-22 15:45:00 [facility] [place] Respitory Rate 2014-05-22 15:45:00 [facility] Systolic (mm Hg) 2014-05-22 15:30:00 Eyal [facility] Diastolic (mm Hg) 2014-05-22 15:30:00 [facility] [place] Respitory Rate 2014-05-22 15:30:00 [facility] Diastolic (mm Hg) 2014-05-22 15:15:00 [facility] Systolic (mm Hg) 2014-05-22 15:15:00 [facility] [place] Respitory Rate 2014-05-22 15:15:00 [facility] [place] Heart Rate 2014-05-22 13:00:00 [facility] Weight 2014-05-21 17:11:00 [facility] Height 2014-05-21 17:11:00 160.02 [facility] BMI Calculated 2014-05-21 17:11:00 Joe mccormack [facility] Heart Rate 2014-05-21 16:40:00 [facility] Temperature Oral (F) 2014-05-21 16:40:[address] [facility] Procedures Procedure Date / Time Performed Performing Clinician Carmen mays Procedure on Wrist 2019-08-25 00:00:00 [facility] amily Practice Hysterectomy (Partial) 2015-09-25 00:00:00 Asher ge [facility] Orthopedic Surgery 2008-09-25 00:00:00 [facility] am[facility] Practice Tubal Ligation 1998-09-25 00:00:00 [facility] Alyi ly Practice Tubal ligation 1998-09-25 00:00:00 [facility] Her holloway Ankle Arthroscopy/surgery Jemima e [facility] Joe mccormack [facility] Hyste[facility] Injection into cervical epidural space [facility] Open reduction with internal fixation of trimalleolar fracture of ankle and fixation of posterior lip of tibia Jake gutierrez [facility] Plan of Care Planned Activity Planned Date Details Comments Source Future Scheduled Test 2013-10-15 20:45:49 Plan of Care [code = 1877 6-5] [facility] Future Scheduled Test 2013-08-12 16:26:59 Plan of Care [code = 1877 6-5] [facility] Future Scheduled Test 2013-07-18 23:30:31 Plan of Care [code = 1877 6-5] [facility] Future Scheduled Test 2013-07-05 21:16:53 Plan of Care [code = 1877 6-5] [facility] Future Scheduled Test 2013-06-25 22:01:02 Plan of Care [code = 1877 6-5] [facility] Encounters Start Date/Time End Date/Time Encounter Type Admission Type Attendi [facility] Facility Care Department Encounter ID Source 2020-04-30 00:00:00 2020-04-30 00:00:00 Liam Blakely , DO: [address], [address], [place] [address], Ph. P [facility] - _DEREKU_N. [place] ([facility]) [id number] [facility] 2020-04-28 00:00:00 2020-04-28 00:00:00 Liam Blakely , DO: [address], [address], [place] [address], Ph. [facility] - VM_HOU_[place] ([facility]) [id number] [facility] 2020-04-27 00:00:00 2020-04-27 00:00:00 Liam Blakely , DO: [address], [address], [place] [address], Ph. [facility] - [facility] ([facility]) [id number] [facility] 2020-04-23 00:00:00 2020-04-23 00:00:00 Liam Blakely , DO: [address], [address], [place] [address], Ph. [facility] - VM_HOU_N. [place] ([facility]) [id number] [facility] 2020-04-17 00:00:00 2020-04-17 00:00:00 Liam Blakely , DO: [address], [place] [address], Ph. [facility] - VM_HOU_N. [place] ([facility]) [id number] [facility] 2020-04-13 00:00:00 2020-04-13 00:00:00 Liam Blakely , DO: [address], [address], [place] [address], Ph. [facility] - [facility] ([facility]) [id number] [facility] 2020-04-10 00:00:00 2020-04-10 00:00:00 Liam Blakely , DO: [address], [address], [place] [address], Ph. [facility] - VM_HOU_N. [place] ([facility]) [id number] [facility] 2020-04-06 00:00:00 2020-04-06 00:00:00 Liam Blakely , DO: [address], [address], [place] [address], Ph. [facility] - [facility] ([facility]) [id number] [facility] 2020-03-31 00:00:00 2020-03-31 00:00:00 Liam Blakely , DO: [address], [address], [place] [address], Ph. [facility] - [facility] ([facility]) [id number] [facility] 2020-03-24 00:00:00 2020-03-24 00:00:00 Liam Blakely , DO: [address], [address], [place] [address], Ph. [facility] - [facility] ([facility]) [id number] [facility] 2020-03-20 00:00:00 2020-03-20 00:00:00 Liam Blakely , DO: [address], [address], [place] [address], Ph. [facility] - VM_HOU_N. [place] ([facility]) [id number] [facility] 2020-02-20 00:00:00 2020-02-20 00:00:00 Liam Blakely , DO: [address], [address], [place] [address], Ph. [facility] - VM_HOU_N. [place] ([facility]) [id number] [facility] 2019-11-25 00:00:00 2019-11-25 00:00:00 Georgina Calderon MD: [address] [place] [address], Ph. [facility] - [facility] [id number] [facility] 2019-07-27 22:44:00 2019-07-28 00:17:00 Departed Emergency Room 1 NE CONKLIN [facility] [id number] [facility] 2019-07-26 00:00:00 2019-07-26 00:00:00 Georgina Calderon MD: [address] [place] [address], Ph. [facility] - [place] [id number] [facility] 2019-05-24 00:00:00 2019-05-24 00:00:00 Georgina Calderon MD: [address] [place] [address], Ph. [facility] - [facility] - [place] [id number] [facility] 2019-05-03 00:00:00 2019-05-03 00:00:00 Georgina Calderon MD: [address] [place] [address], Ph. [facility] [place] [id number] [facility] 2019-04-22 00:00:00 2019-04-22 00:00:00 Georgina Calderon MD: [place] [address], Ph. [facility] - [place] [id number] [facility] 2019-03-12 00:00:00 2019-03-12 00:00:00 Georgina Calderon MD: [address] [place] [address], Ph. [facility] - VFP[place] [id number] [facility] 2019-03-05 11:37:00 2019-03-05 11:37:00 Outpatient Kobe Rosa MD [place] [id number] Dany Rosa MD 2019-02-22 00:00:00 2019-02-22 00:00:00 Georgina Calderon MD: [address] [place] [address], Ph. [facility] [id number] [facility] 2018-12-31 00:00:00 2018-12-31 00:00:00 Georgina Calderon MD: [address] [place] [address], Ph. [facility] [id number] [facility] 2018-11-02 00:00:00 2018-11-02 00:00:00 Georgina Calderon MD: [address] [place] [address], Ph. [facility] [id number] [facility] 2018-09-03 14:44:00 2018-09-03 14:44:00 Outpatient Kobe Rosa MD [place] [id number] Dany Rosa MD 2018-06-15 08:30:00 2018-06-15 08:30:00 [facility] [id number] 2018-05-15 08:45:00 2018-05-15 08:45:00 Outpatient Kobe Rosa MD [place] [id number] NOELLE Rosa MD 2018-05-08 01:36:00 2018-05-08 01:36:00 Outpatient Kobe Rosa MD [place] [id number] NOELLE Rosa MD 2018-04-16 11:00:00 2018-04-16 23:59:59 [facility] [id number] 2018-04-16 11:00:00 2018-04-16 23:59:59 Outpatient Carmelina Pak [facility] [id number] 2017-12-07 08:16:00 2017-12-07 08:16:00 Outpatient Kobe Rosa MD PA [id number] Dany Rosa MD 2017-12-06 20:50:00 2017-12-06 22:35:00 Departed Emergency Room [facility] [id number] [facility] 2017-09-07 08:00:00 2017-09-07 08:00:00 Outpatient Kobe Rosa MD [place] [id number] Dany Rosa MD 2017-08-11 05:36:00 2017-08-11 09:30:00 Outpatient Chin, See Morales DRAKESE MHSE [id number] 2016-07-18 06:28:00 2016-07-18 11:15:00 Outpatient Chin, See Morales barron MHPL MHPL [id number] 2014-05-22 08:00:00 2014-05-22 12:11:00 Outpatient Wesley Coleman MHIE MHIE [id number] 2013-10-15 14:45:50 2013-10-15 14:45:49 Outpatient MHIE MHIE [id number] 2013-08-12 10:26:59 2013-08-12 10:26:59 Outpatient MHIE MHIE [id number] 2013-07-18 18:30:31 2013-07-18 18:30:31 Outpatient MHIE MHIE [id number] 2013-07-05 16:16:54 2013-07-05 16:16:53 Outpatient MHIE MHIE [id number] 2013-06-25 17:01:02 2013-06-25 17:01:02 Outpatient MHIE MHIE [id number] Results Test Description Test Time Test Comments Results Result Comments Source ELBOW 3 VIEW RT - HOPD 2019-07-27 23:38:00 [place] [address] Patient Name: DEON ISABEL MR #: [id number] : 1975 Age/Sex: 44/F Req #: [id number] Adm Physician: Ordered by: NE CONKLIN MD Report #: [id number] Location: [facility] Room/Bed: Procedure: [id number] HOPD/ELBOW 3 VIEW RT - HOPD Exam Date: 07/27/19 Exam Time: 0 REPORT STATUS: Signed X-ray right wrist 3 [...] wrist IMPRESSION: Acute displaced angulated comminuted impacted intra-articular distal radial fracture and ulnar styloid tip fracture. Mild volar translation of the carpus relative to the posterior aspect of the distal radial articular surface. Signed by: Richard Matthews DO on 07/27/2019 11:42 PM Dictated By: RICHARD MATTHEWS DO 41 Transcribed By: DARY on 07/27/192341 COPY TO: NE CONKLIN MD WRIST 3VW RT - HOPD 2019-07-27 23:38:00 [place] [address] Patient Name: DEON ISABEL MR #: [id number] : 1975 Age/Sex: 44/F Req #: [id number] Adm Physician: Ordered by: NE CONKLIN MD Report #: [id number] Location: [facility] Room/Bed: Procedure: [id number] HOPD/WRIST 3VW RT - HOPD Exam Date: 07/27/19 Exam Time: 2320 REPORT STATUS: Signed X-ray right wrist 3 views X-ray right elbow 3 views HISTORY: Pain. Trauma COMPARISON: None available. FINDINGS: Bones: Acute displaced angulated comminuted impacted intra- articular distal radial fracture. Ulnar styloid tip fracture. Joints: Mild volar translation of the carpus relative to the posterior aspect of the radial articular surface. Soft tissues: Soft tissue swelling about the wrist IMPRESSION: Acute displaced angulated comminuted impacted intra-articular distal radial fracture and ulnar styloid tip fracture. Mild volar translation of the carpus relative to the posterior aspect of the distal radial articular surface. Signed by: Richard Matthews DO on 07/27/2019 11:42 PM Dictated By: RICHARD MATTHEWS DO 41 Transcribed By: DARY on 07/27/192341 COPY TO: NE CONKLIN MD CBC W Auto Differential panel - Blood 2019-02-25 11:09:00 Test Item WBC (test code = WBC) 7.3 x10e3/uL 3.4-10.8 RBC (test code = RBC) 4.20 x10e6/uL 3.77-5.28 hemoglobin (test code = hemoglobin) 12.0 g/dL 11.1-15.9 hematocrit (test code = hematocrit) 36.1 % 34.0-46.6 MCV (test code = MCV) 86 fL 79-97 MCH (test code = MCH) 28.6 pg 26.6-33.0 MCHC (test code = MCHC) 33.2 g/dL 31.5-35.7 RDW (test code = RDW) 13.6 % 12.3-15.4 platelets (test code = platelets) 205 x10e3/uL 150-450 neutrophils (test code = neutrophils) 66 % not estab. lymphs (test code = lymphs) 23 % not estab. monocytes (test code = monocytes) 8 % not estab. eos (test code = eos) 3 % not estab. basos (test code = basos) 0 % not estab. immature cells (test code = immature cells) comment neutrophils (absolute) (test code = neutrophils (absolute)) 4.8 x10e3/uL 1.4-7.0 lymphs (absolute) (test code = lymphs (absolute)) 1.7 x10e3/uL 0.7- 3.1 monocytes(absolute) (test code = monocytes(absolute)) 0.6 x10e3/uL 0.1-0.9 eos (absolute) (test code = eos (absolute)) 0.2 x10e3/uL 0.0-0.4 baso (absolute) (test code = baso (absolute)) 0.0 x10e3/uL 0.0-0.2 immature granulocytes (test code = immature granulocytes) 0 % not estab. immature grans (abs) (test code = immature grans (abs)) 0.0 x10e3/u L 0.0-0.1 hematology comments: (test code = hematology comments:) comment [facility] - Serum or Plasma 2019-02-25 11:09:00* Test Item Value Reference Range Interpretation Comments glucose (test code = glucose) 111 mg/dL 65-99 H BUN (test code = BUN) 14 mg/dL 6-24 creatinine (test code = creatinine) 0.63 mg/dL 0.57-1.00 eGFR if nonafricn AM (test code = eGFR if nonafricn AM) 108 mL/m in/1.73 >59 eGFR if africn AM (test code = eGFR if africn AM) 124 mL/min/1.73 >59 BUN/creatinine ratio (test code = BUN/creatinine ratio) 22 9-23 sodium (test code = sodium) 142 mmol/L 134-144 potassium (test code = potassium) 4.3 mmol/L 3.5-5.2 chloride (test code = chloride) 104 mmol/L 96-106 carbon dioxide, total (test code = carbon dioxide, total) 21 mmol/L 20-29 calcium (test code = calcium) 8.7 mg/dL 8.7-10.2 protein, total (test code = protein, total) 7.1 g/dL 6.0-8.5 albumin (test code = albumin) 4.1 g/dL 3.5-5.5 globulin, total (test code = globulin, total) 3.0 g/dL 1.5-4.5 A/G ratio (test code = A/G ratio) 1.4 1.2-2.2 bilirubin, total (test code = bilirubin, total) <0.2 0.0-1. 2 alkaline phosphatase (test code = alkaline phosphatase) 92 IU/L 39-117 AST (SGOT) (test code = AST (SGOT)) 28 IU/L 0-40 ALT (SGPT) (test code = ALT (SGPT)) 31 IU/L 0-32 [facility] - Serum or [id number] 11:09:00* Test Item Value Reference Range Interpretation Comments cholesterol, total (test code = cholesterol, total) 168 mg/dL 10 0-199 triglycerides (test code = triglycerides) 113 mg/dL 0-149 HDL cholesterol (test code = HDL cholesterol) 50 mg/dL >39 VLDL cholesterol jaun (test code = VLDL cholesterol jaun) 23 mg/dL 5-40 Cholesterol in LDL [Mass/volume] in Serum or Plasma (t est code = 2089-1) 95 mg/dL 0-99 [facility] [Units/volume] in Serum or [id number] 11:09:00* Test Item Value Reference Range Interpretation Comments TSH (test code = TSH) 0.858 uIU/mL 0.450-4.500 [facility] by Westergren method 2019-02-25 11:09:00* Test Item Value Reference Range Interpretation Comments sedimentation rate-westergren (test code = sedimentati on rate-westergren) 21 mm/HR 0-32 [facility] [id number] 13:05:16Negative (05/22/14 8:05 AM) Zhao Villar
--- OUTSIDE RECORDS SUMMARY | 2020-05-06 20:36 | XMS REPORT ---
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
--- OUTSIDE RECORDS SUMMARY | 2020-05-06 20:36 | XMS REPORT | Encounter Summary ---
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 Georgina Calderon 3 [phone] Kobe Rosa MD 121 [phone] Lux Esteves MD 124 [phone] Tremaine Orellana 130 [phone] Reason for Visit Seasonal allergy; Telemedicine Visit Instructions 1. Acute sinusitis Bromfed DM 2 mg-30 mg-10 mg/5 mL oral syrup Discussion Note: None recorded. Patient educational handouts: No information available. Plan of Care Reminders Provider Appointments None recorded. Lab None recorded. Referral None recorded. Procedures None recorded. Surgeries None recorded. Imaging None recorded. Medications Name Start Date amitriptyline 10 mg tablet TAKE ONE (1) TABLET(S) BY MOUTH ONCE A DAY AT BEDTIME. amlodipine 10 mg tablet TAKE ONE(1) TABLET(S) BY MOUTH ONCE A DAY. Bromfed DM 2 mg-30 mg-10 mg/5 mL oral sy rup Take 10 mL every 4-6 hours by oral route as needed. gnswkjcqxn-xpcatgk-cxbkzybg 50 mg-325 mg -40 mg capsule TAKE [...] days. Medications Administered None recorded. Vitals Height 5 ft 2 in Results Lab Results None recorded. Allergies Code [...] Status Former Smoker (1/2 PPD) Past Encounters 02/20/2020 Acute Sinusitis Liam Blakely, DO: [address] [facility] , [address], [place] [address], Ph. History of Present Illness Sinusitis UC Reported By: Patient HPI: Location: maxillary, frontal . Onset/Timing: abrupt onset, initially started 5, days5, days ago. Quality: worsening, congested. Duration: infrequent. Severity: moderate. Associated Symptoms: facial pain bilaterally, sinus pain forehead Note:I confirm that I received verbal consent from the patient for the virtual visit.
This telemedicine encounter was performed using live {{video and audio*|audio only}}.
Review of Systems Comprehensive General Adult ROS Reported By: Patient Constitutional: Constitutional: no fever ENMT: Ears: no difficulty hearing, no ear pain. Nose: no frequent nosebleeds, nose problems, sinus problems. Mouth/Throat: no sore throat Cardiovascular: Cardiovascular: no chest gladys n, no shortness of breath when walking Respiratory: Respiratory: no wheezing, no shortness of breath, cough Gastrointestinal: Gastrointestinal: no abdomin al pain, no nausea, no vomiting, no constipation, no diarrhea Musculoskeletal: Musculoskeletal: no muscle a ches, no muscle weakness, no arthralgias/joint pain, no swelling in the extremities Physical Exam Telemedicine/Virtual Visit Reported By: Patient Constitutional: General Appearance: healthy- appearing, well-developed. Level of Distress: NAD. Ambulation: ambulating normally Psychiatric: Insight: good judgement. Men juwan Status: active and alert, normal mood, normal affect. Orientation: to time, to place, to person. Memory: recent memory normal, remote memory normal Head: Head: normocephalic, atrauma tic ENMT: Ears: no lesions on external ear. Hearing: grossly normal. Nose: no lesions on external nose. Lips, Teeth, and Gums: no mouth or lip ulcers. Oropharynx: moist mucous membranes Neck: Neck: FROM Lungs: Respiratory effort: no dyspn ea Skin: Inspection and palpation: no rash, no lesions, no induration, no jaundice. Nails: normal"
--- OUTSIDE RECORDS SUMMARY | 2020-05-06 20:36 | XMS REPORT ---
Author DEON Naik Organization [employer] Address Unknown Phone Unavailable Care Team Providers Care Scenario Writer Name Role Phone Kobe Rosa CP Unavailable [...] Start Date End Date Status Dosage Plaquenil [facility] [id number] 200 MG Orally Twice a day Active 1 tablet with food or milk Results No Known Results Summary Purpose [employer] Submission
--- OUTSIDE RECORDS SUMMARY | 2020-05-06 20:37 | XMS REPORT | Encounter Summary ---
Author Organization Unknown Address [address] [place] [address] Phone [phone] Care Team Providers Care Engineer Third Assistant Name Role Phone Dr. Liam Blakely 3 [phone] Kobe Rosa MD 121 [phone] Lux Esteves MD 124 [phone] Tremaine Orellana 130 [phone] Reason for Visit other - see typed reason; Telemedicine V isit Instructions 1. Mixed anxiety and depressive disorder diazepam 10 mg tablet 2. Acute insomnia Discussion Note: None recorded. Patient educational handouts: No information available. Plan of Care Reminders Provider Appointments None recorded. Lab None recorded. Referral None recorded. Procedures None recorded. Surgeries None recorded. Imaging None recorded. Medications Name Start Date amitriptyline 50 mg tablet Take 1 tablet every day by oral route. amlodipine 10 mg tablet TAKE ONE(1) TABLET(S) BY MOUTH ONCE A DAY. buspirone 15 mg tablet Take 1 tablet 3 times a day by oral route. njmsmcwveb-wowtndwzxfybr-vkfbgqcj 50 mg- 300 mg-40 mg capsule Take 1 capsule(s) every 6 hours by oral route prn diazepam 10 mg tablet TAKE 1 TABLET BY MOUTH TWICE DAILY NEEDED fluoxetine 40 mg capsule Take 2 capsules every day by oral route. hydrocodone 10 mg-acetaminophen 325 mg t ablet as needed hydroxychloroquine 200 mg tablet TAKE ONE (1) TABLET(S) BY MOUTH TWICE A DAY. lisinopril 40 mg tablet TAKE ONE (1) TABLET(S) BY MOUTH ONCE A DAY. methocarbamol 750 mg tablet one tablet twice a day by mouth metoprolol tartrate 100 mg tablet TAKE ONE (1) TABLET(S) BY MOUTH TWICE A DAY. pantoprazole 40 mg tablet,delayed releas e Take 1 tablet every day by oral route. quetiapine 100 mg tablet one tablet at bed time by mouth Medications Administered None recorded. Vitals Height 5 ft 2 in Results Lab Results None recorded. Allergies Code Code System Name Reaction Severity Status Onset 674685 RxNorm Celebrex Active 928528 RxNorm Imitrex Flushing Active Problems Name Status [...] Active 12/24/2019 Procedures Date Name Performed by 08/25/2019 Procedure on Wrist Information not avai lable 09/25/2015 Hysterectomy (Partial) Information not a vailable 09/25/2008 Orthopedic Surgery Information not avai lable 09/25/1998 Tubal Ligation Information not avai lable Ankle Arthroscopy/surgery Information no t available Partial Hysterectomy Information not lexie ilable Vaccine List Vaccine Type Tdap 03/12/20190.5 mL Social History Tobacco Smoking Status Former Smoker (1/2 PPD) Past Encounters 04/30/2020 Mixed Anxiety and Depressive Disorder; Acute Insomnia Liam Blakely, DO: [address], [address], [place] [address], Ph. 04/28/2020 Mixed Anxiety and Depressive Disorder; Migraine with Aura Liam Blakely, DO: [address], [address], [place] [address], Ph. 04/27/2020 Mixed Anxiety and Depressive Disorder; Insomnia Liam Blakely, DO: [address], [address], [place] [address], Ph. 04/23/2020 Acute Insomnia Liam Blakely, DO: [address], [address], [place] [address], Ph. 04/17/2020 Gastroesophageal Reflux Disease Liam Blakely, DO: [address], [address], [place] [address], Ph. 04/13/2020 Mixed Anxiety and Depressive Disorder; Migraine with Aura Liam Blakely, DO: [address], [address], [place] [address], Ph. 04/10/2020 Mixed Anxiety and Depressive Disorder Liam Blakely, DO: [address] [facility] [address], [place] [address], Ph. 04/06/2020 Mixed Anxiety and Depressive Disorder; Pain of Left Temporomandibular Joint Liam Blakely, DO: [address], [address], [place] [address], Ph. 03/31/2020 Mixed Anxiety and Depressive Disorder; Migraine with Aura Liam Blakely, DO: [address], [address], [place] [address], Ph. History of Present Illness Depression TF Reported By: Patient HPI: Onset/Timing: several weeks. Severity: moderate, /10. Context: anxiety, life stressors. Modifying Factors: psychotropic medication, psychotherapy. Associated Symptoms: sleep disturbances, fatigue, feelings of worthlessness, restlessness, difficulty concentrating, suicidal thoughts Notes: Marital infidelity. Seeing t herapist and psychiatry. Currently taking Prozac, Buspar, Alprazolam. Continues to have anxiety and doesn't feel like Alprazolam helps during extreme anxiety / panic. Feels like Prozac and Buspar are very helpful. <div>
</div><div>INSOMNIA: Was evaluated by psych on yesterday and started on Seroquel 100mg qhs for insomnia. This has greatly improved sleep.</div> Anxiety Disorder Reported By: Patient HPI: Onset/Timing: several weeks. Severity: moderate. Context: depression, life stressors. Modifying Factors: psychotropic medication, psychotherapy. Associated Symptoms: no difficulty swallowing, no excessive sweating, difficulty concentrating, difficulty controlling worry, excess anxiety, fatigue, high irritability, muscle tension, muscle aches, trembling, headaches, restlessness, sleep disturbances Notes: Would like to try Diazepam i nstead of Alprazolam for panic. Continues to have rumination about cheating. Gets very anxious when he leaves home or does not answer phone. Reports taking Diazepam last year for severe anxiety related to finding aunt in home. Note:I confirm that I received verbal consent from the patient for the virtual visit.
This telemedicine encounter was performed using live {{video and audio*|audio only because either patient did not have technology or unable to connect due to technical problems}}
Review of Systems Comprehensive General Adult ROS Reported By: Patient Constitutional: Constitutional: no fever Gastrointestinal: Gastrointestinal: no abdomin al pain, no nausea, no vomiting, no constipation, no diarrhea Musculoskeletal: Musculoskeletal: no muscle a ches, no muscle weakness, no arthralgias/joint pain, no swelling in the extremities Psychiatric: Psych: no suicidal thoughts, depression, sleep disturbances, anxiety Physical Exam Telemedicine/Virtual Visit Reported By: Patient Constitutional: General Appearance: healthy- appearing, well-developed. Level of Distress: mild distress. Ambulation: ambulating normally Psychiatric: Insight: good judgement. Men juwan Status: active and alert, anxious. Orientation: to time, to place, to person. Memory: recent memory normal Head: Head: normocephalic, atrauma tic Neck: Neck: FROM Lungs: Respiratory effort: no dyspn ea"
--- OUTSIDE RECORDS SUMMARY | 2020-05-06 20:37 | XMS REPORT | Encounter Summary ---
Author Organization Unknown Address [address] [place] [address] Phone [phone] Care Team Providers Care Manager Mall Name Role Phone Dr. Liam Blakely 3 [phone] Kobe Rosa MD 121 [phone] Lux Esteves MD 124 [phone] Tremaine Orellana 130 [phone] Reason for Visit Mixed anxiety and depressive disorder; T elemedicine Visit Instructions 1. Mixed anxiety and depressive disorder 2. Insomnia zolpidem ER 6.25 mg tablet,extended re lease,multiphase Discussion Note: None recorded. Patient educational handouts: No information available. Plan of Care Reminders Provider Appointments None recorded. Lab None recorded. Referral None recorded. Procedures None recorded. Surgeries None recorded. Imaging None recorded. Medications Name Start Date alprazolam 0.5 mg tablet TAKE ONE (1) TABLET(S) BY MOUTH THREE TIMES A DAY NEEDED FOR 10 DAYS. amitriptyline 50 mg tablet Take 1 tablet every day by oral route. amlodipine 10 mg tablet TAKE ONE(1) TABLET(S) BY MOUTH ONCE A DAY. buspirone 15 mg tablet Take 1 tablet 3 times a day by oral route. rznqduwjgx-kcmbaha-rmdgloeo 50 mg-325 mg -40 mg capsule TAKE 1 CAPSULE BY MOUTH EVERY 4 TO 6 HOURS NEEDED fluoxetine 40 mg capsule Take 2 capsules every day by oral route. hydralazine 25 mg tablet Take one tablet [...] 1 tablet every day by oral route. zolpidem ER 6.25 mg tablet,extended rele ase,multiphase TAKE ONE (1) TABLET(S) BY MOUTH AT BEDTIME Medications Administered None recorded. Vitals Height 5 [...] Status Former Smoker (1/2 PPD) Past Encounters 04/27/2020 Mixed Anxiety and Depressive Disorder; Insomnia Liam Blakely, DO: [address], [address] [address], Ph. 04/23/2020 Acute Insomnia Liam Blakely, DO: [address], [address], [place] [address], Ph. 04/17/2020 Gastroesophageal Reflux Disease Liam Blakely, DO: [address], [address], [place] [address], Ph. 04/13/2020 Mixed Anxiety and Depressive Disorder; Migraine with Aura Liam Blakely, DO: [address], [address], [place] [address], Ph. 04/10/2020 Mixed Anxiety and Depressive Disorder Liam Blakely, DO: [address] [facility], [address], [place] [address], Ph. 04/06/2020 Mixed Anxiety and Depressive Disorder; Pain of Left Temporomandibular Joint Liam Blakely, DO: [address], [address], [place] [address], Ph. 03/31/2020 Mixed Anxiety and Depressive Disorder; Migraine with Aura Liam Blakely, DO: [address], [address], [place] [address], Ph. History of Present Illness Depression TF Reported By: Patient HPI: Onset/Timing: several weeks. Severity: severe. Context: anxiety; Marital infidelity. Seeing therapist and psychiatrist. Psychiatrist recommended hydroxyzine but not helping. Modifying Factors: psychotropic medication, psychotherapy. Associated Symptoms: sleep disturbances, fatigue, feelings of worthlessness, restlessness, difficulty concentrating, suicidal thoughts Anxiety Disorder Reported By: Patient HPI: Onset/Timing: several weeks. Severity: severe. Context: depression, life stressors; Marital infidelity. Excessive anxiety and depression over the weekend. Modifying Factors: psychotropic medication, psychotherapy. Associated Symptoms: no difficulty swallowing, no excessive sweating, difficulty concentrating, difficulty controlling worry, excess anxiety, hot flashes, palpitations, shortness of breath, nausea, diarrhea, fatigue, high irritability, muscle tension, muscle aches, trembling, twitching, headaches, restlessness, sleep disturbances Note:I confirm that I received verbal consent from the patient for the virtual visit.
This telemedicine encounter was performed using live {{video and audio*|audio only because either patient did not have technology or unable to connect due to technical problems}}.

Review of Systems Comprehensive General Adult ROS Reported By: Patient Constitutional: Constitutional: no fever Respiratory: Respiratory: no cough, no wh eezing, no shortness of breath Gastrointestinal: Gastrointestinal: no abdomin al pain, no [...] active and alert, normal mood, normal affect Head: Head: normocephalic, atrauma tic Lungs: Respiratory effort: no dyspn ea"
--- OUTSIDE RECORDS SUMMARY | 2020-05-06 20:37 | XMS REPORT | Encounter Summary ---
Author Organization Unknown Address [address] [place] [address] Phone [phone] Care Team Providers Care Customer Business Manager Name Role Phone Dr. Liam Blakely 3 [phone] Kobe Rosa MD 121 [phone] Lux Esteves MD 124 [phone] Tremaine Orellana 130 [phone] Reason for Visit Mixed anxiety and depressive disorder; M igraine with aura; Telemedicine Visit Instructions 1. Mixed anxiety and depressive disorder 2. Migraine with aura amitriptyline 50 mg tablet Discussion Note: None recorded. Patient educational handouts: No information available. Plan of Care Reminders Provider Appointments None recorded. Lab None recorded. Referral None recorded. Procedures None recorded. Surgeries None recorded. Imaging None recorded. Medications Name Start Date alprazolam 0.5 mg tablet Take 1 tablet 3 times a day by oral route as needed for 7 days. amitriptyline 25 mg tablet Take 2 tablets every day by oral route at bedtime. amitriptyline 50 mg tablet Take 1 tablet every day by oral route. amlodipine 10 mg tablet TAKE ONE(1) TABLET(S) BY MOUTH ONCE A DAY. buspirone 15 mg tablet Take 1 tablet 3 times a day by oral route. clancablby-licrdud-hbmscapl 50 mg-325 mg -40 mg capsule TAKE 1 CAPSULE BY MOUTH EVERY 4 TO 6 HOURS NEEDED cyclobenzaprine 5 mg tablet Take 1 tablet 3 times a day by oral route as needed. fluoxetine 40 mg capsule Take 2 capsules [...] oral route as needed for 10 days. zolpidem ER 6.25 mg tablet,extended rele ase,multiphase [...] Status Former Smoker (1/2 PPD) Past Encounters 04/13/2020 Mixed Anxiety and Depressive Disorder; Migraine with Aura Liam Blakely, DO: [address], [address] [address], Ph. 04/10/2020 Mixed Anxiety and Depressive Disorder Liam Blakely, DO: [address] [facility] [address], [address], [place] [address], Ph. 04/06/2020 Mixed Anxiety and Depressive Disorder; Pain of Left Temporomandibular Joint Liam Blakely, DO: [address], [address], [place] [address], Ph. 03/31/2020 Mixed Anxiety and Depressive Disorder; Migraine with Aura Liam Blakely, DO: [address], [address], [place] [address], Ph. 03/24/2020 Mixed Anxiety and Depressive Disorder; Acute Insomnia; Migraine with Aura; Body Mass Index 40+ - Severely Obese Liam Blakely, DO: [address], [address], [place] [address], Ph. 03/20/2020 Mixed Anxiety and Depressive Disorder; Acute Insomnia Liam Blakely, DO: [address] [facility], [address], [place] [address], Ph. History of Present Illness Depression TF Reported By: Patient HPI: Onset/Timin-3 weeks. Sev erity: moderate. Context: anxiety. Associated Symptoms: sleep disturbances, feelings of worthlessness, difficulty concentrating, no suicidal thoughts; Pt states she feels better but it is not completely gone Anxiety Disorder Reported By: Patient HPI: Onset/Timin-3 weeks. Sev erity: severe. Context: depression, life stressors. Associated Symptoms: no difficulty swallowing, no excessive sweating, difficulty controlling worry, excess anxiety, fatigue, high irritability, muscle tension, muscle aches, headaches, restlessness, sleep disturbances Notes: improved but not resolved Note:I confirm that I received verbal consent [...] anxiety Physical Exam Telemedicine/Virtual Visit Reported By: Patient"
--- OUTSIDE RECORDS SUMMARY | 2020-05-06 20:37 | XMS REPORT | Encounter Summary ---
Author Organization Unknown Address [address] [place] [address] Phone [phone] Care Team Providers Care Workers Compensation Coordinator Name Role Phone Dr. Liam Blakely 3 [phone] Kobe Rosa MD 121 [phone] Lux Esteves MD 124 [phone] Tremaine Orellana 130 [phone] Reason for Visit depression; Telemedicine Visit Instructions 1. Mixed anxiety and depressive disorder fluoxetine 40 mg capsule psychology referral - Please contact patient to schedule. Thank you! 2. Acute insomnia zolpidem 5 mg tablet Discussion Note: None recorded. Patient educational handouts: No information available. Plan of Care Reminders Provider Appointments Telemedicine 15 03/25/2020 8:45AM Liam alexander, Lab None recorded. Referral Psychology Referral 03/20/2020 [facility] oral Health Procedures None recorded. Surgeries None recorded. Imaging None recorded. Medications Name Start Date amitriptyline 10 mg tablet TAKE ONE (1) TABLET(S) BY MOUTH ONCE A DAY AT BEDTIME. amlodipine 10 mg tablet TAKE ONE(1) TABLET(S) BY MOUTH ONCE A DAY. bobqecpory-opagtxn-doembyhf 50 mg-325 mg -40 mg capsule TAKE 1 CAPSULE BY MOUTH EVERY 4 TO 6 HOURS NEEDED cyclobenzaprine 10 mg tablet Take 1 tablet twice a day by oral route. fluoxetine 20 mg capsule TAKE ONE (1) CAPSULE(S) BY MOUTH ONCE A DAY. fluoxetine 40 mg capsule Take 2 capsules every day by oral route. hydralazine 25 mg tablet Take one tablet by mouth twice daily hydroco/apap tab 10-325mg hydrocodone 10 mg-acetaminophen 325 mg t ablet [...] route as needed for 10 days. zolpidem 5 mg tablet Take 1 tablet at bedtime as needed Medications Administered None recorded. Vitals Height Weight BMI 5 ft 2 in Results Lab Results [...] Status Former Smoker (1/2 PPD) Past Encounters 03/20/2020 Mixed Anxiety and Depressive Disorder; Acute Insomnia Liam Blakely, DO: [address], [address], [place] [address], Ph. 02/20/2020 Acute Sinusitis Liam Blakely, DO: [address], [address], [place] [address], Ph. History of Present Illness Depression TF Reported By: Patient HPI: Onset/Timin weeks. Sever ity: severe, 07/04. Context: anxiety, life stressors; Recently discovered that her has been cheating for the past 2 years and now wants a divorce. This has caused worsening anxiety and depression. Has not slept in past 2 days. Difficulty staying and falling asleep. Modifying Factors: ; granddaughter helps with negative emotions. Associated Symptoms: sleep disturbances, fatigue, high irritability, feelings of worthlessness, sadness, restlessness, difficulty concentrating, suicidal thoughts, depression: accompanied by: eating less Note:I confirm that I received verbal consent from the patient for the virtual visit.
This telemedicine encounter was performed using live {{video and audio*|audio only because either patient did not have technology or unable to connect due to technical problems}} Review of Systems Comprehensive General Adult ROS Reported By: Patient Constitutional: Constitutional: no fever Cardiovascular: Cardiovascular: no chest gladys n, no shortness of breath when walking Respiratory: Respiratory: no cough, no wh eezing, no shortness of breath Gastrointestinal: Gastrointestinal: no abdomin al pain, no nausea, no vomiting, no constipation, no diarrhea Musculoskeletal: Musculoskeletal: no muscle a ches, no muscle weakness, no arthralgias/joint pain, no swelling in the extremities Psychiatric: Psych: no hallucinations, no suicidal thoughts, depression, sleep disturbances, anxiety Physical Exam Telemedicine/Virtual Visit Reported By: Patient Constitutional: General Appearance: healthy- appearing, well-developed. Level of Distress: NAD. Ambulation: ambulating normally Psychiatric: Insight: good judgement. Men juwan Status: active and alert, anxious, depressed. Orientation: to time, to place, to person. Memory: recent memory normal, remote memory normal Head: Head: normocephalic, atrauma tic Eyes: Lids and Conjunctivae: non-i njected, no discharge, no pallor. EOM: EOMI. Sclerae: non-icteric ENMT: Ears: no lesions on external ear. Hearing: grossly normal. Nose: no lesions on external nose. Lips, Teeth, and Gums: no mouth or lip ulcers. Oropharynx: moist mucous membranes Neck: Neck: FROM Lungs: Respiratory effort: no dyspn ea Neurologic: Gait and Station: normal gai t, normal station. Cranial Nerves: grossly intact. Coordination and Cerebellum: no tremor Skin: Inspection and palpation: no rash, no lesions, no induration, no jaundice. Nails: normal"
--- OUTSIDE RECORDS SUMMARY | 2020-05-06 20:37 | XMS REPORT | Encounter Summary ---
Author Organization Unknown Address [address] [place] [address] Phone [phone] Care Team Providers Care Production Editor Name Role Phone Dr. Liam Blakely 3 [phone] Kobe Rosa MD 121 [phone] Lux Esteves MD 124 [phone] Tremaine Orellana 130 [phone] Reason for Visit follow up visit; Telemedicine Visit Instructions 1. Acute insomnia Discussion Note: None recorded. Patient educational handouts: No information available. Plan of Care Reminders Provider Appointments None recorded. Lab None recorded. Referral None recorded. Procedures None recorded. Surgeries None recorded. Imaging None recorded. Medications Name Start Date alprazolam 0.5 mg tablet TAKE ONE (1) TABLET(S) BY MOUTH THREE TIMES A DAY NEEDED FOR 7 DAYS. amitriptyline 50 mg tablet Take 1 tablet every day by oral route. amlodipine 10 mg tablet TAKE ONE(1) TABLET(S) BY MOUTH ONCE A DAY. buspirone 15 mg tablet Take 1 tablet 3 times a day by oral route. siotccxjqm-clxwtmk-cyowpejq 50 mg-325 mg -40 mg capsule TAKE 1 CAPSULE BY MOUTH EVERY 4 TO 6 HOURS NEEDED fluoxetine 40 mg capsule Take 2 capsules every day by oral route. hydralazine 25 mg tablet Take one tablet by mouth twice daily hydrocodone 10 mg-acetaminophen 325 mg t ablet as needed hydroxychloroquine 200 mg tablet TAKE ONE (1) TABLET(S) BY MOUTH TWICE A DAY. hydroxyzine HCl 25 mg tablet lisinopril 40 mg tablet TAKE ONE (1) TABLET(S) BY MOUTH ONCE A DAY. methocarbamol 750 mg tablet one tablet twice a day by mouth metoprolol tartrate 100 mg tablet TAKE ONE (1) TABLET(S) BY MOUTH TWICE A DAY. pantoprazole 40 mg tablet,delayed releas e Take 1 tablet every day by oral route. Xyzal 5 mg tablet Take 1 tablet every day by oral route as needed for 10 days. zolpidem ER 6.25 mg tablet,extended rele ase,multiphase TAKE ONE (1) TABLET(S) BY MOUTH AT BEDTIME Medications Administered None recorded. Vitals Height Weight [...] Status Former Smoker (1/2 PPD) Past Encounters 04/23/2020 Acute Insomnia Liam Blakely, DO: [address], [address], [place] [address], Ph. 04/17/2020 Gastroesophageal Reflux Disease Liam Blakely, DO: [address], [address], [place] [address], Ph. 04/13/2020 Mixed Anxiety and Depressive Disorder; Migraine with Aura Liam Blakely, DO: [address], [address], [place] [address], Ph. 04/10/2020 Mixed Anxiety and Depressive Disorder Liam Blakely, DO: [address] [facility] , [address], [place] [address], Ph. 04/06/2020 Mixed Anxiety and Depressive Disorder; Pain of Left Temporomandibular Joint Liam Blakely, DO: [address] [facility], [address], [place] [address], Ph. 03/31/2020 Mixed Anxiety and Depressive Disorder; Migraine with Aura Liam Blakely, DO: [address], [address], [place] [address], Ph. 03/24/2020 Mixed Anxiety and Depressive Disorder; Acute Insomnia; Migraine with Aura; Body Mass Index 40+ - Severely Obese Liam Blakely, DO: [address], [address], [place] [address], Ph. History of Present Illness Insomnia Reported By: Patient HPI: Severity: worsening. Duratio n: frequent, present for 1 month. Onset/Timing: abrupt onset. Context: using medications for sleep, wakes up4 hours after going to sleep; Going through marital issues with related to infidelity. This has caused much anxiety and depression. Has ruminating thoughts at bedtime. Difficulty in staying sleep. Prior to these events she could sleep 12 hours without problem. Now she is sleeping 4 hours on averaging. Lack of sleep affects mood. Works at night from home for [employer] and sleeps during the day. Consumes caffeine but feels like it doesn't affect her. Was seen by psychiatrist earlier this week who placed her on Hydroxyzine for sleep. Modifying Factors: new stressors in life. Associated Symptoms: no pain, anxiety, depression Note:I confirm that I received verbal consent from the patient for the virtual visit.
This telemedicine encounter was performed using live {{video and audio*|audio only because either patient did not have technology or unable to connect due to technical problems}}.
<strong>(for audio only)</strong> Total time spent with patient: {{ }} minutes. Review of Systems Comprehensive General Adult ROS [...]
--- OUTSIDE RECORDS SUMMARY | 2020-05-06 20:37 | XMS REPORT | Encounter Summary ---
Author Organization Unknown Address [address] [place] [address] Phone [phone] Care Team Providers Care Interactive Project Manager Name Role Phone Dr. Liam Blakely 3 [phone] Kobe Rosa MD 121 [phone] Lux Esteves MD 124 [phone] Tremaine Orellana 130 [phone] Reason for Visit Mixed anxiety and depressive disorder; M igraine with aura; Telemedicine Visit Instructions 1. Mixed anxiety and depressive disorder 2. Migraine with aura Discussion Note: None recorded. Patient educational handouts: No information available. Plan of Care Reminders Provider Appointments Telemedicine 15 04/07/2020 9:30AM Liam alexander, Lab None recorded. Referral None recorded. Procedures None recorded. Surgeries None recorded. Imaging None recorded. Medications Name Start Date amitriptyline 25 mg tablet Take 1 tablet every day by oral route. amlodipine 10 mg tablet TAKE ONE(1) TABLET(S) BY MOUTH ONCE A DAY. buspirone 7.5 mg tablet Take 1 tablet twice a day by oral route as needed. zlgojedmas-kdficle-sokonjzz 50 mg-325 mg -40 mg capsule TAKE 1 CAPSULE BY MOUTH EVERY 4 TO 6 HOURS NEEDED cyclobenzaprine 10 mg tablet Take 1 tablet twice a day by oral route. fluoxetine 40 mg [...] zolpidem ER 6.25 mg tablet,extended rele ase,multiphase Take 1 tablet every day by oral route. Medications Administered None recorded. Vitals Height 5 [...] Status Former Smoker (1/2 PPD) Past Encounters 03/31/2020 Mixed Anxiety and Depressive Disorder; Migraine with Aura Liam Blakely, DO: [address], [address], [place] [address], Ph. 03/24/2020 Mixed Anxiety and Depressive Disorder; Acute Insomnia; Migraine with Aura; Body Mass Index 40+ - Severely Obese Liam Blakely, DO: [address], [address], [place] [address], Ph. 03/20/2020 Mixed Anxiety and Depressive Disorder; Acute Insomnia Liam Blakely, DO: [address] [facility] , [address], [place] [address], Ph. History of Present Illness Depression TF Reported By: Patient HPI: Onset/Timin weeks. Sever ity: severe, 07/04. Context: anxiety, life stressors; Recently discovered that her has been cheating for the past 2 years and now wants a divorce. This has caused worsening anxiety and depression. Has not slept in past 2 days. Difficulty staying and falling asleep.(03/24) Started zolpidem 5mg and Fluoxetine 80mg PRO. Continues to have high anxiety and depression. Zolpidem not help with sleep. Has appointment with therapist on next week. Reports taking buspar in the past with good response.(03/31) anxiety and depression still present but improved since start buspar last week. Her husbands GF passed last week. this week. This has been rough time because he was like a GF to Almaz. Almaz and are trying to work on their marriage. is planning on going to therapy too. Modifying Factors: ; granddaughter helps with negative emotions. Associated Symptoms: fatigue, high irritability, feelings of worthlessness, sadness, suicidal thoughts, depression: accompanied by: eating less Insomnia Reported By: Patient HPI: Quality: symptoms worse in t he evening. Severity: same. Duration: present for 1 week. Context: wakes up 30 minutes after going to sleep. Modifying Factors: new stressors in life. Associated Symptoms: anxiety, depression Note:I confirm that I received [...] judgement. Men juwan Status: active and alert, depressed. Orientation: to time, to place, to [...]
--- OUTSIDE RECORDS SUMMARY | 2020-05-06 20:37 | XMS REPORT | Encounter Summary ---
Author Organization Unknown Address [address] [place] [address] Phone [phone] Care Team Providers Care Offal Roller Name Role Phone Dr. Liam Blakely 3 [phone] Kobe Rosa MD 121 [phone] Lux Esteves MD 124 [phone] Tremaine Orellana 130 [phone] Reason for Visit other - see typed reason; heartburn/alyssa gestion; Telemedicine Visit Instructions 1. Gastroesophageal reflux disease pantoprazole 40 mg tablet,delayed rele ase Discussion Note: None recorded. Patient educational handouts: No information available. Plan of Care Reminders Provider Appointments None recorded. Lab None recorded. Referral None recorded. Procedures None recorded. Surgeries None recorded. Imaging None recorded. Medications Name Start Date alprazolam 0.5 mg tablet TAKE ONE (1) TABLET(S) BY MOUTH THREE TIMES A DAY NEEDED FOR 7 DAYS. amitriptyline 25 mg tablet Take 2 tablets every day by oral route at bedtime. amitriptyline 50 mg tablet Take 1 tablet every day by oral route. amlodipine 10 mg tablet TAKE ONE(1) TABLET(S) BY MOUTH ONCE A DAY. buspirone 15 mg tablet Take 1 tablet 3 times a day by oral route. dzwdbfyjvk-pjshvqj-hcfpdmhp 50 mg-325 mg -40 mg capsule TAKE [...] Status Former Smoker (1/2 PPD) Past Encounters 04/17/2020 Gastroesophageal Reflux Disease Liam Blakely, DO: [address] [facility] [address], [address], [place] [address], Ph. 04/13/2020 Mixed Anxiety and Depressive Disorder; Migraine with Aura Liam Blakely, DO: [address], [address], [place] [address], Ph. 04/10/2020 Mixed Anxiety and Depressive Disorder Liam Blakely, DO: [address], [address], [place] [address], Ph. 04/06/2020 Mixed Anxiety and Depressive Disorder; Pain of Left Temporomandibular Joint Liam Blakely, DO: [address], [address], [place] [address], Ph. 03/31/2020 Mixed Anxiety and Depressive Disorder; Migraine with Aura Liam Blakely, DO: [address], [address], [place] [address], Ph. 03/24/2020 Mixed Anxiety and Depressive Disorder; Acute Insomnia; Migraine with Aura; Body Mass Index 40+ - Severely Obese Liam Blakely, DO: [address], [address], [place] [address], Ph. 03/20/2020 Mixed Anxiety and Depressive Disorder; Acute Insomnia Liam Blakely, DO: [address], [address] [facility], [place] [address], Ph. History of Present Illness Reflux/GERD Reported By: Patient HPI: Symptoms no difficulty swall owing, no pain swallowing, heartburn; felt like something in her throat. Quality: burning; in the throat. Severity: worsening, moderate, waking up at night. Duration: present for 1-6 months; never really goes away. Onset/Timing: gradual onset, daily, still present; all the time no matter. Context: non-smoker, no drug/alcohol abuse, no drug alcohol withdrawal, not related to food/drink. Alleviating Factors: nothing helps. Associated Symptoms: no frequent coughing, no vomiting, no difficulty swallowing, no pain when swallowing, no bad taste, feels like fullness/mass in throat, belching/burping, nausea, regurgitation, heartburn, throat pain Note:I confirm that I received verbal consent [...] no nausea, no vomiting, no constipation, no diarrhea, GERD Musculoskeletal: Musculoskeletal: no muscle a ches, no [...]
--- OUTSIDE RECORDS SUMMARY | 2020-05-06 20:37 | XMS REPORT | Encounter Summary ---
Author Organization Unknown Address [address] [place] [address] Phone [phone] Care Team Providers Care Linux Unix System Administrator Name Role Phone Dr. Liam Blakely 3 [phone] Kobe Rosa MD 121 [phone] Lux Esteves MD 124 [phone] Tremaine Orellana 130 [phone] Reason for Visit Mixed anxiety and depressive disorder; T elemedicine Visit Instructions 1. Mixed anxiety and depressive disorder alprazolam 0.5 mg tablet Discussion Note: None recorded. Patient educational handouts: No information available. Plan of Care Reminders Provider Appointments Telemedicine 15 on or around 04/20/2020 Liam Blakely DO Lab None recorded. Referral None recorded. Procedures None recorded. Surgeries None recorded. Imaging None recorded. Medications Name Start Date alprazolam 0.5 mg tablet Take 1 tablet 3 times a day by oral route as needed for 7 days. amitriptyline 25 mg tablet Take 1 tablet every day by oral route. amlodipine 10 mg tablet TAKE ONE(1) TABLET(S) BY MOUTH ONCE A DAY. buspirone 15 mg tablet Take 1 tablet 3 times a day by oral route. eppilxttef-fbkhcxk-ikmrfjzj 50 mg-325 mg -40 mg capsule TAKE [...] BY MOUTH TWICE A DAY. hydroxyzine HCl 10 mg tablet lisinopril 40 mg tablet TAKE [...] Status Former Smoker (1/2 PPD) Past Encounters 04/10/2020 Mixed Anxiety and Depressive Disorder Liam Blakely, DO: [address] [facility] , [address], [place] [address], Ph. 04/06/2020 Mixed Anxiety and Depressive Disorder; Pain of Left Temporomandibular Joint Liam Blakely, DO: [address], [address], [place] [address], Ph. 03/31/2020 Mixed Anxiety and Depressive Disorder; Migraine with Aura Liam Blakely, DO: [address], [address], [place] [address], Ph. 03/24/2020 Mixed Anxiety and Depressive Disorder; Acute Insomnia; Migraine with Aura; Body Mass Index 40+ - Severely Obese Liam Blakely, DO: [address], [address], [place] [address], Ph. 03/20/2020 Mixed Anxiety and Depressive Disorder; Acute Insomnia Liam Blakely, DO: [address] [facility] , [address], [place] [address], Ph. History of Present Illness Depression TF Reported By: Patient HPI: Severity: severe. Context: a nxiety. Associated Symptoms: sleep disturbances, fatigue, feelings of worthlessness, restlessness, difficulty concentrating, suicidal thoughts Anxiety Disorder Reported By: Patient HPI: Severity: severe. Context: d epression, life stressors. Associated Symptoms: no difficulty swallowing, [...] no ear pain. Nose: no frequent nosebleeds, no nose problems, no sinus problems Cardiovascular: Cardiovascular: no chest gladys n, no [...] discharge, no pallor. EOM: EOMI. Sclerae: non-icteric Neck: Neck: FROM Lungs: Respiratory effort: no dyspn ea"
--- OUTSIDE RECORDS SUMMARY | 2020-05-06 20:37 | XMS REPORT | Encounter Summary ---
Author Organization Unknown Address [address] [place] [address] Phone [phone] Care Team Providers Care Tank Furnace Operator Name Role Phone Dr. Liam Blakely 3 [phone] Kobe Rosa MD 121 [phone] Lux Esteves MD 124 [phone] Tremaine Orellana 130 [phone] Reason for Visit Mixed anxiety and depressive disorder; T elemedicine Visit Instructions 1. Mixed anxiety and depressive disorder buspirone 7.5 mg tablet 2. Acute insomnia zolpidem ER 6.25 mg tablet,extended re lease,multiphase 3. Migraine with aura amitriptyline 25 mg tablet 4. Body mass index 40+ - severely [...] a day by oral route as needed. gizbueqkma-fshteer-xmaytazb 50 mg-325 mg -40 mg capsule TAKE [...] Take 1 tablet at bedtime as needed zolpidem ER 6.25 mg tablet,extended rele ase,multiphase Take 1 tablet every day by oral route. Medications Administered None recorded. Vitals Height Weight BMI Blood Pressure 5 ft 2 in 295 lbs 54 kg/m2 Results Lab Results None recorded. Allergies Code [...] Status Former Smoker (1/2 PPD) Past Encounters 03/24/2020 Mixed Anxiety and Depressive Disorder; Acute Insomnia; Migraine with Aura; Body Mass Index 40+ - Severely Obese Liam Blakely, DO: [address] [facility], [address], [place] [address], Ph. 03/20/2020 Mixed Anxiety and Depressive Disorder; Acute Insomnia Liam Blakely, DO: [address] [facility] , [address], [place] [address], Ph. History of Present Illness Depression TF [...] taking buspar in the past with good response. Modifying Factors: ; granddaughter helps with negative [...]
--- OUTSIDE RECORDS SUMMARY | 2020-05-06 20:37 | XMS REPORT | Encounter Summary ---
Author Organization Unknown Address [address] [place] [address] Phone [phone] Care Team Providers Care Armor Officer Name Role Phone Dr. Liam Blakely 3 [phone] Kobe Rosa MD 121 [phone] Lux Esteves MD 124 [phone] Tremaine Orellana 130 [phone] Reason for Visit Mixed anxiety and depressive disorder; L eft ear pain/problem; Telemedicine Visit Instructions 1. Mixed anxiety and depressive disorder 2. Pain of left temporomandibular joint cyclobenzaprine 5 mg tablet Discussion Note: None recorded. [...] a day by oral route as needed. xkkdhrglzm-ehacxll-xivmsjbd 50 mg-325 mg -40 mg capsule TAKE 1 CAPSULE BY MOUTH EVERY 4 TO 6 HOURS NEEDED cyclobenzaprine 10 mg tablet Take 1 tablet twice a day by oral route. cyclobenzaprine 5 mg tablet Take 1 tablet 3 times a day by oral route as needed. fluoxetine 20 mg capsule fluoxetine 40 mg capsule Take 2 capsules [...] Status Former Smoker (1/2 PPD) Past Encounters 04/06/2020 Mixed Anxiety and Depressive Disorder; Pain of Left Temporomandibular Joint Liam Blakely, DO: [address], [address], [place] [address], Ph. 03/31/2020 Mixed Anxiety and Depressive Disorder; Migraine with Aura Liam Blakely, DO: [address], [address], [place] [address], Ph. 03/24/2020 Mixed Anxiety and Depressive Disorder; Acute Insomnia; Migraine with Aura; Body Mass Index 40+ - Severely Obese Liam Blakely, DO: [address], [address], [place] [address], Ph. 03/20/2020 Mixed Anxiety and Depressive Disorder; Acute Insomnia Liam Blakely, DO: [address] [facility] , [address], [place] [address], Ph. History of Present Illness Depression TF [...] marriage. is planning on going to therapy too.(04/06) little improvement with anxiety and depression. Was seen by [facility] earlier today and Buspar increased to 15mg TID. Will follow up with hayder in 4 weeks. She plans on setting of therapist appointment later this week. She was able to get through of 's GF last week. She feels like working things out with her is not going to work. Modifying Factors: ; granddaughter helps with negative emotions. Associated Symptoms: fatigue, high irritability, feelings of worthlessness, sadness, suicidal thoughts, depression: accompanied by: eating less Insomnia Reported By: Patient HPI: Quality: symptoms worse in t he evening. Severity: same. Duration: present for 1 week. Context: wakes up 30 minutes after going to sleep. Modifying Factors: new stressors in life. Associated Symptoms: anxiety, depression Earache Reported By: Patient HPI: Location: left. Quality: ach ing, dull. Severity: worsening. Duration: frequent. Context: ; Reports history of TMJ worsening now with stressors Anxiety Disorder Reported By: Patient HPI: Onset/Timin months. Raina hernandez: severe, 07/04. Context: depression, life stressors. Associated Symptoms: difficulty concentrating Note:I confirm that I received verbal consent [...] Patient Constitutional: Constitutional: no fever ENMT: Ears: difficulty hearing, ea r pain. Nose: no frequent nosebleeds, no nose [...]
--- OUTSIDE RECORDS SUMMARY | 2020-05-06 20:37 | XMS REPORT | Encounter Summary ---
Author Organization Unknown Address [address] [place] [address] Phone [phone] Care Team Providers Care Sys Dir Name Role Phone Dr. Liam Blakely 3 [phone] Kobe Rosa MD 121 [phone] Lux Esteves MD 124 [phone] Tremaine Orellana 130 [phone] Reason for Visit Mixed anxiety and depressive disorder; M igraine with aura; Telemedicine Visit Instructions 1. Mixed anxiety and depressive disorder 2. Migraine with aura Fioricet 50 mg-300 mg-40 mg capsule Discussion Note: None recorded. Patient educational handouts: [...] 3 times a day by oral route. vtojrsbgac-ojmgvkixmyvuc-cyoffwwg 50 mg- 300 mg-40 mg capsule Take [...] DO: [address], [address], [place] [address], Ph. 04/28/2020 Mixed Anxiety and Depressive Disorder; Migraine with Aura Liam Blakely, DO: [address], [address], [place] [address], Ph. 04/27/2020 Mixed Anxiety and Depressive Disorder; Insomnia Liam Blakely, DO: [address], [address], [place] [address], Ph. 04/23/2020 Acute Insomnia Liam Blakely, DO: [address], [address], [place] [address], Ph. 04/17/2020 Gastroesophageal Reflux Disease Liam Blakely, DO: [address], [address], [place] [address], Ph. 04/13/2020 Mixed Anxiety and Depressive Disorder; Migraine with Aura Liam Blakely, DO: [address], [address] [facility], [place] [address], Ph. 04/10/2020 Mixed Anxiety and Depressive Disorder Liam Blakely, DO: [address], [address], [place] [address], Ph. 04/06/2020 Mixed Anxiety and Depressive Disorder; Pain of Left Temporomandibular Joint Liam Blakely, DO: [address], [address], [place] [address], Ph. 03/31/2020 Mixed Anxiety and Depressive Disorder; Migraine with Aura Liam Blakely, DO: [address], [address], [place] [address], Ph. History of Present Illness Depression TF [...] judgement. Men juwan Status: active and alert, anxious Head: Head: normocephalic, atrauma tic Lungs: Respiratory effort: no dyspn ea"
[2020-05-06] MEDS ORDERED: ONDANSETRON HCL INJ 2MG/ML 2ML 2 MG/ML VIAL IV STA (21:05)
[2020-05-06] MEDS ORDERED: SODIUM CHLORIDE 0.9% 1000ML 1,000 ML IV SCH (21:15)
[2020-05-06] MEDS ORDERED: ONDANSETRON HCL INJ 2MG/ML 2ML 2 MG/ML VIAL ONE (21:24)
[2020-05-06] MEDS ORDERED: SODIUM CHLORIDE 0.9% 1000ML 1,000 ML ONE (21:24)
--- NOTE | 2020-05-06 21:50 | Diagnostic Imaging Report ---
EXAMINATION: CXR 2 VIEW - HOPD INDICATION: Chest pain radiating to arms. COMPARISON: None FINDINGS: TUBES and LINES: None. LUNGS: Normal lung volumes. Lungs are clear. No consolidations. PLEURA: No pleural effusion or pneumothorax. HEART AND MEDIASTINUM: The cardiomediastinal silhouette is unremarkable. BONES AND SOFT TISSUES: No acute osseous lesion. Soft tissues are unremarkable. UPPER ABDOMEN: No free air under the diaphragm. IMPRESSION: No acute thoracic radiographic abnormality. Signed by: Fallon Chase MD on 05/06/2020 9:47 PM
== END 2020-05-06 22:20 | disposition home or self-care (01) ==
LOC: FSED 20:18
DX: R07.9 Chest pain, unspecified (principal); I10 Essential (primary) hypertension; K21.9 Gastro-esophageal reflux disease without esophagitis; R94.31 Abnormal electrocardiogram [ECG] [EKG]; F41.9 Anxiety disorder, unspecified; F41.0 Panic disorder [episodic paroxysmal anxiety]; E66.9 Obesity, unspecified; F17.210 Nicotine dependence, cigarettes, uncomplicated
CPT/HCPCS: 71046; 80053; 82553; 84484; 85025; 99284; J2405; J7030

== ENCOUNTER 2020-07-22 19:29 | Emergency (ER) | payer OTHER ==
[~2020-07-22] VITALS: Ht 157.5 cm; Wt 124.7 kg
--- NOTE | 2020-07-22 21:16 | Diagnostic Imaging Report ---
History: Trauma Comparison studies: None Technique: Axial images were obtained from the skull base to the vertex. Coronal and sagittal reconstructions obtained from the axial data. Dose modulation, iterative reconstruction, and/or weight based adjustment of the mA/kV was utilized to reduce the radiation dose to as low as reasonably achievable. Intravenous contrast: None Findings: Scalp/skull: No abnormalities. No fractures, blastic or lytic lesions. Extra-axial spaces: No masses. No fluid collections. Brain sulci: Appropriate for age. Ventricles: Normal in size and configuration. No hydrocephalus. Parenchyma: No abnormal densities. No masses, hemorrhage, acute or chronic cortical vascular insults. Sellar/suprasellar region: No abnormalities Craniocervical junction: Patent foramen magnum. No Chiari one malformation. Incidental findings: None. IMPRESSION: No abnormalities. Signed by: Dr. Gabriel Carrasco M.D. on 07/22/2020 9:13 PM
--- NOTE | 2020-07-22 21:19 | Diagnostic Imaging Report ---
History:Trauma Comparison studies: None Technique: Axial images were obtained through the maxillofacial region. Coronal and sagittal images reconstructed from the axial data. Dose modulation, iterative reconstruction, and/or weight based adjustment of the mA/kV was utilized to reduce the radiation dose to as low as reasonably achievable. Intravenous contrast: None Findings: Soft tissues: No abnormalities. Bones: No fractures or bone abnormalities. Orbits: Globes: Intact Extra or intraconal abnormalities: None. Paranasal sinuses: Clear Incidental bilateral unerupted and maxillary incisors (series 3, image 93) IMPRESSION: 1. No acute maxillofacial abnormalities. 2. No fractures Signed by: Dr. Gabriel Carrasco M.D. on 07/22/2020 9:15 PM
--- NOTE | 2020-07-22 21:22 | Emergency Department Note ---
History of Present Illnes History of Present Illness Chief Complaint: Extremity Trauma/Pain History of Present Illness This is a 45 year old female Chief Complaint Comment PT STATES SHE TRIPPED LAST NIGHT OVER HER FEET WHILE CARRING A YETI CUP. PT STATES SHE FELL STRAIGHT FORWARD AND LANDING ON CUP, DENIES LOC BRUISING NOTED TO BILATERAL BREAST. REDNESS AND SWELLING TO CHIN, NO BLEEDING. SKIN TEAR TO LEFT BIG TOE NO BLEEDING . Historian: Patient Arrival Mode: Car Onset (how long ago): day(s) (2) Location: head and chest Quality: dull Radiation: Reports non-radiation Severity: moderate Onset quality: gradual Duration (how long): day(s) (2) Timing of current episode: constant Progression: unchanged Chronicity: new Context: Denies recent illness, Denies recent surgery, Denies recent immobilization, Denies recent travel, Denies trauma/injury, Denies new medications, Denies hx of DVT/PE, Denies non-compliance w/ medications, Denies other Relieving factors: none Exacerbating factors: none Associated symptoms: Denies denies other symptoms, Denies confusion, Denies chest pain, Denies cough, Denies diaphoresis, Denies fever/chills, Denies headaches, Denies loss of appetite, Denies malaise, Denies nausea/vomiting, Denies rash, Denies seizure, Denies shortness of breath, Denies syncope, Denies weakness, Denies other Treatments prior to arrival: none Past Medical/Family History Physician Review I have reviewed the patient's past medical and family history. Any updates have been documented here. Past Medical History Recent Fever: No Clinical Suspicion of Infectio: No New/Unexplained Change in Ment: No Past Medical History: Hypertension, Anxiety, Depression, GERD Other Medical History: Panic Attacks Past Surgical History: Hysterectomy Other Surgery: pins and plates to left ankle right wrist surgery Social History Smoking Cessation: Current every day smoker Counseling Performed: No Alcohol Use: Occasional Any Illegal Drug Use: No Physically hurt or threatened: No Other Last Tetanus: MORE THAN 10 YEARS Any Pre-Existing Lines (PICC,: No Review of Systems Review of Systems Constitutional: Reports no symptoms, Reports as per HPI EENTM: Reports as per HPI Cardiovascular: Reports no symptoms Respiratory: Reports no symptoms Gastrointestinal: Reports no symptoms Genitourinary: Reports no symptoms Musculoskeletal: Reports no symptoms Integumentary: Reports no symptoms Neurological: Reports as per HPI Psychological: Reports no symptoms Endocrine: Reports no symptoms Hematological/Lymphatic: Reports no symptoms Physical Exam Related Data Allergies: Coded Allergies: sumatriptan (Verified Allergy, Unknown, FLUSH, BURNING SENSATION ON FACE, 08/07/19) Uncoded Allergies: PLASTIC TAPE (Allergy, Unknown, 07/27/19) PEACHES (Adverse Reaction, Unknown, HIVES, LIPS SWELL, 08/07/19) Triage Vital Signs Vital Signs Date Time Temp Pulse Resp B/P (MAP) Pulse Ox O2 Delivery O2 Flow Rate FiO2 07/22/20 19:40 97.6 68 18 202/88 99 Room Air Vital signs reviewed: Yes Physical Exam CONSTITUTIONAL Constitutional: Present well-developed, Present well-nourished HENT HENT: Present normocephalic, Present atraumatic, Present oropharynx clear/moist, Present nose normal, Present other (tender chi) HENT L/R: Present left ext ear normal, Present right ext ear normal EYES Eyes: Reports PERRL, Reports conjunctivae normal NECK Neck: Present ROM normal PULMONARY Pulmonary: Present effort normal, Present breath sounds normal CARDIOVASCULAR Cardiovascular: Present regular rhythm, Present heart sounds normal, Present capillary refill normal, Present normal rate, Present other (contsion both breasts) GASTROINTESTINAL Abdominal: Present soft, Present nontender, Present bowel sounds normal GENITOURINARY Genitourinary: Present exam deferred SKIN Skin: Present warm, Present dry MUSCULOSKELETAL Musculoskeletal: Present ROM normal NEUROLOGICAL Neurological: Present alert, Present oriented x 3, Present no gross motor or sensory deficits PSYCHOLOGICAL Psychological: Present mood/affect normal, Present judgement normal Results Imaging Imaging results reviewed: Yes Assessment & Plan Medical Decision Making MDM head injury, fx Reassessment Reassessment time: 21:20 Reassessment better Assessment & Plan Final Impression: (1) Head injury (2) Acute pain due to trauma (3) Chest wall contusion (4) Neck sprain Depart Disposition: HOME, SELF-CARE Last Vital Signs Date Time Temp Pulse Resp B/P (MAP) Pulse Ox O2 Delivery O2 Flow Rate FiO2 07/22/20 21:15 186/80 99 07/22/20 19:40 97.6 68 18 Room Air Home Meds Active Scripts Diazepam (VALIUM) 5 Mg Tablet, 5 MG PO TID PRN for PAIN, #15 TAB 0 Refills Prov:SUMAN ROBB MD 12/06/17 Acetaminophen With Codeine (TYLENOL WITH CODEINE #3 TABLET) 1 Each Tablet, 300 MG PO Q4HR PRN for PAIN, #20 TAB 0 Refills Take with Benadryl to prevent itch. Prov:SUMAN ROBB MD 12/06/17 Reported Medications Omeprazole (OMEPRAZOLE) 40 Mg Capsule.dr, 20 MG PO DAILY 08/07/19 Hydroxychloroquine Sulfate (HYDROXYCHLOROQUINE SULFATE) 200 Mg Tablet, 200 MG PO BID 08/07/19 Amitriptyline Hcl (AMITRIPTYLINE HCL) 10 Mg Tablet, 10 MG PO HS, #30 TAB 08/07/19 Levocetirizine Dihydrochloride (XYZAL) 5 Mg Tablet, 5 MG PO DAILY THERAPEUTICALLY SUBSTITUTED WITH LORATADINE 08/07/19 Hydralazine Hcl (HYDRALAZINE HCL) 25 Mg Tab, 25 MG PO BID, TAB 08/07/19 Metoprolol Tartrate (METOPROLOL TARTRATE) 50 Mg Tablet, 100 MG PO BID, TAB 08/07/19 Butalb/Acetaminophen/Caffeine ([id number] 50-325-40) 1 Each Tablet, 1- 2 TAB PO PRN 08/07/19 Amlodipine Besylate (NORVASC) 10 Mg Tab, 10 MG PO HS 03/11/14 Lisinopril (LISINOPRIL) 40 Mg Tablet, 40 MG PO HS 03/11/14 GENNARO MURDOCK MD Jul 22, 2020 21:22
--- NOTE | 2020-07-22 21:23 | Diagnostic Imaging Report ---
EXAM: CT Chest WITHOUT contrast INDICATION: ^FALL COMPARISON: None TECHNIQUE: Chest was scanned utilizing a multidetector helical scanner from the lung apex through the level of the adrenal glands without administration of IV contrast. Absence of intravenous contrast decreases sensitivity for detection of lymphadenopathy and vascular pathology. Coronal and sagittal reformations were obtained. Routine protocol was performed. IV CONTRAST: None COMPLICATIONS: None . FINDINGS: LINES/ TUBES: None. LUNGS AND AIRWAYS: The lungs are unremarkable. Airways are normal. PLEURA: The pleural spaces are clear. HEART AND MEDIASTINUM: The thyroid gland is normal. No mediastinal, hilar or axillary lymphadenopathy. The heart is mildly enlarged. There is no pericardial effusion. BONES: The visualized bony thorax is within normal limits. SOFT TISSUES: Unremarkable. IMPRESSION: No acute intrathoracic process. Signed by: Micah Calvillo MD on 07/22/2020 9:19 PM
--- NOTE | 2020-07-22 21:23 | Diagnostic Imaging Report ---
History: Trauma Comparison studies: None Technique: Axial images were obtained through the cervical region. Coronal and sagittal images reconstructed from the axial data. Dose modulation, iterative reconstruction, and/or weight based adjustment of the mA/kV was utilized to reduce the radiation dose to as low as reasonably achievable. Intravenous contrast: None Findings: Alignment: Straightening of the usual lordosis is probably positional. No scoliosis. Cervicomedullary junction: No abnormalities. The foramen magnum is patent. Soft tissues: No abnormalities.. Vertebrae: Normal in height and density. No fractures, infection or neoplasm Degenerative changes: None IMPRESSION: 1. No abnormalities. 2. Specifically, no fractures or subluxations. 3. Cannot adequately evaluate for spinal cord, vascular or ligament abnormalities. Signed by: Dr. Gabriel Carrasco M.D. on 07/22/2020 9:20 PM
[2020-07-22] MEDS ORDERED: NAPROSYN500 MG PO (21:24)
[2020-07-22] MEDS ORDERED: CYCLOBENZAPRINE5 MG PO (21:24)
== END 2020-07-22 21:40 | disposition home or self-care (01) ==
LOC: FSED 19:40
DX: S20.213A Contusion of bilateral front wall of thorax, initial encounter (principal); S13.4XXA Sprain of ligaments of cervical spine, initial encounter; S00.83XA Contusion of other part of head, initial encounter; S91.112A Laceration without foreign body of left great toe without damage to nail, initial encounter; W01.198A Fall on same level from slipping, tripping and stumbling with subsequent striking against other object, initial encounter; Y93.01 Activity, walking, marching and hiking; Y92.008 Other place in unspecified non-institutional (private) residence as the place of occurrence of the external cause; I10 Essential (primary) hypertension; F41.9 Anxiety disorder, unspecified; K21.9 Gastro-esophageal reflux disease without esophagitis; F17.210 Nicotine dependence, cigarettes, uncomplicated
CPT/HCPCS: 70450; 70486; 71250; 72125; 99283

== ENCOUNTER 2020-07-23 21:55 | Emergency (ER) | payer OTHER ==
[~2020-07-23] VITALS: Ht 157.5 cm; Wt 124.7 kg
[~2020-07-23 21:55] MED LIST changes: +CYCLOBENZAPRINE5 MG PO; +NAPROSYN500 MG PO
--- NOTE | 2020-07-23 23:07 | Emergency Department Note ---
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 PT CRYING DURING TRIAGE, PLACED IN GOWN PAPERSCRUBS NOT LARGE ENOUGH FOR PT, ALL EQUIPMENT AND WIRES REMOVED FROM ROOM, PT WITH DOOR OPEN AND IN FULL VIEW OF RN AT DESK . Historian: Patient Arrival Mode: Car Onset (how long ago): day(s) (2) Location: suicidal Radiation: Denies non-radiation, Denies back, Denies neck, Denies extremity, Denies abdomen, Denies periumbilical, Denies flank, Denies proximal, Denies distal, Denies other Severity: moderate Onset quality: gradual Duration (how long): day(s) Timing of current episode: constant Progression: worsening Chronicity: new Context: Reports recent illness, Reports recent surgery, Reports recent immobilization, Reports recent travel, Reports trauma/injury, Reports new medications, Reports hx of DVT/PE, Reports non-compliance w/ medications, Reports other Relieving factors: none Exacerbating factors: none Associated symptoms: Denies denies other symptoms, Denies confusion, Denies chest pain, Denies cough, Denies diaphoresis, Denies fever/chills, Denies headaches, Denies loss of appetite, Denies malaise, Denies nausea/vomiting, Denies rash, Denies seizure, Denies shortness of breath, Denies syncope, Denies weakness, Denies other Treatments prior to arrival: none (GENNARO MURDOCK MD) Past Medical/Family History Physician Review I have reviewed the patient's past medical and family history. Any updates have been documented here. (GENNARO MURDOCK MD) Past Medical History Recent Fever: No Clinical Suspicion of Infectio: No New/Unexplained Change in Ment: No Past Medical History: Hypertension, Anxiety, Depression, GERD Other Medical History: PANIC ATTACKS Past Surgical History: Hysterectomy Other Surgery: PINS AND PLATES (RIGHT ANKLE/RIGHT WRIST) (GENNARO MURDOCK MD) Social History Smoking Cessation: Former smoker Alcohol Use: Occasional Any Illegal Drug Use: No Physically hurt or threatened: No (GENNARO MURDOCK MD) Other Last Tetanus: MORE THAN 10 YEARS Any Pre-Existing Lines (PICC,: No (GENNARO MURDOCK MD) Review of Systems Review of Systems Constitutional: Reports no symptoms EENTM: Reports no symptoms; Denies as per HPI, Denies eye pain, Denies blurred vision, Denies tearing, Denies double vision, Denies ear pain, Denies ear discharge, Denies nose pain, Denies nose congestion, Denies throat pain, Denies throat swelling, Denies mouth pain, Denies mouth swelling, Denies other Cardiovascular: Reports no symptoms; Denies as per HPI, Denies chest pain, Denies edema, Denies palpitations, Denies syncope, Denies other Respiratory: Reports no symptoms; Denies as per HPI, Denies change in phlegm color, Denies chest congestion, Denies cough, Denies hemoptysis, Denies excessive phlegm production, Denies pain on inspiration, Denies pain with cough, Denies dyspnea, Denies dyspnea on exertion, Denies snoring, Denies stridor, Denies wheezing, Denies other Gastrointestinal: Reports no symptoms; Denies as per HPI, Denies abdominal pain, Denies constipation, Denies diarrhea, Denies nausea, Denies vomiting, Denies other Genitourinary: Reports no symptoms; Denies as per HPI, Denies discharge, Denies dysuria, Denies frequency, Denies hematuria, Denies pain, Denies other Musculoskeletal: Reports no symptoms; Denies as per HPI, Denies back pain, Denies gout, Denies joint pain, Denies joint swelling, Denies muscle pain, Denies muscle stiffness, Denies neck pain, Denies other Integumentary: Reports no symptoms Neurological: Reports no symptoms Psychological: Reports as per HPI Endocrine: Reports no symptoms Hematological/Lymphatic: Reports no symptoms (GENNARO MURDOCK MD) Physical Exam Related Data Allergies: Coded Allergies: amoxicillin (Verified Allergy, Unknown, 07/23/20) clavulanic acid (Verified Allergy, Unknown, 07/23/20) sumatriptan (Verified Allergy, Unknown, FLUSH, BURNING SENSATION ON FACE, 08/07/19) Uncoded Allergies: PLASTIC TAPE (Allergy, Unknown, 07/27/19) PEACHES (Adverse Reaction, Unknown, HIVES, LIPS SWELL, 08/07/19) Triage Vital Signs Vital Signs Date Time Temp Pulse Resp B/P (MAP) Pulse Ox O2 Delivery O2 Flow Rate FiO2 07/23/20 22:00 98.1 81 18 140/69 98 Room Air Vital signs reviewed: Yes (GENNARO MURDOCK MD) Physical Exam CONSTITUTIONAL Constitutional: Present well-developed, Present well-nourished HENT HENT: Present normocephalic, Present atraumatic, Present oropharynx clear/moist, Present nose normal HENT L/R: Present left ext ear normal, Present right ext ear normal EYES Eyes: Reports PERRL, Reports conjunctivae normal NECK Neck: Present ROM normal PULMONARY Pulmonary: Present effort normal, Present breath sounds normal CARDIOVASCULAR Cardiovascular: Present regular rhythm, Present heart sounds normal, Present c apillary refill normal, Present normal rate GASTROINTESTINAL Abdominal: Present soft, Present nontender, Present bowel sounds normal GENITOURINARY Genitourinary: Present exam deferred SKIN Skin: Present warm, Present dry MUSCULOSKELETAL Musculoskeletal: Present ROM normal NEUROLOGICAL Neurological: Present alert, Present oriented x 3, Present no gross motor or sensory deficits PSYCHOLOGICAL Psychological: Present mood/affect normal, Present judgement normal (GENNARO MURDOCK MD) Results Laboratory Lab results reviewed: Yes (GENNARO MURDOCK MD) Assessment & Plan Medical Decision Making MDM depression suicidal (GENNARO MURDOCK MD) [facility] [address] FROM [facility] TEAM HAS EVALUATED PT, RECOMMENDS VOLUNTARY INPATIENT TREATMENT, PT IS AGREEABLE TO THIS. AWAITING BED AT A PSYCHIATRIC FACILITY. [address] [facility] ACCEPT[facility] PT FOR TRANSFER (RAMÓN CHEUNG MD) Reassessment Reassessment time: 23:06 Reassessment same (GENNARO MURDOCK MD) Assessment & Plan Final Impression: (1) Depression (2) Suicidal ideation (GENNARO MURDOCK MD) Depart Disposition: XFER TO PSYCH HOSP/UNIT Last Vital Signs Date Time Temp Pulse Resp B/P (MAP) Pulse Ox O2 Delivery O2 Flow Rate FiO2 07/23/20 22:00 98.1 81 18 140/69 98 Room Air (GENNARO MURDOCK MD) Home Meds Active Scripts Naproxen (NAPROSYN) 500 Mg Tablet, 500 MG PO BID, #15 TAB Prov:GENNARO MURDOCK MD 07/22/20 Cyclobenzaprine Hcl (FLEXERIL) 5 Mg Tablet, 10 MG PO Q8H PRN for PAIN, #15 TAB 0 Refills Prov:GENNARO MURDOCK MD 07/22/20 Diazepam (VALIUM) 5 Mg Tablet, 5 MG PO TID PRN for PAIN, #15 TAB 0 Refills Prov:SUMAN ROBB MD 12/06/17 Acetaminophen With Codeine (TYLENOL WITH CODEINE #3 TABLET) 1 Each Tablet, 300 MG PO Q4HR PRN for PAIN, #20 TAB 0 Refills Take with Benadryl to prevent itch. Prov:SUMAN ROBB MD 12/06/17 Reported Medications Omeprazole (OMEPRAZOLE) 40 Mg Capsule.dr, 20 MG PO DAILY 08/07/19 Hydroxychloroquine Sulfate (HYDROXYCHLOROQUINE SULFATE) 200 Mg Tablet, 200 MG PO BID 08/07/19 Amitriptyline Hcl (AMITRIPTYLINE HCL) 10 Mg Tablet, 10 MG PO HS, #30 TAB 08/07/19 Levocetirizine Dihydrochloride (XYZAL) 5 Mg Tablet, 5 MG PO DAILY THERAPEUTICALLY SUBSTITUTED WITH LORATADINE 08/07/19 Hydralazine Hcl (HYDRALAZINE HCL) 25 Mg Tab, 25 MG PO BID, TAB 08/07/19 Metoprolol Tartrate (METOPROLOL TARTRATE) 50 Mg Tablet, 100 MG PO BID, TAB 08/07/19 Butalb/Acetaminophen/Caffeine ([id number] 50-325-40) 1 Each Tablet, 1- 2 TAB PO PRN 08/07/19 Amlodipine Besylate (NORVASC) 10 Mg Tab, 10 MG PO HS 03/11/14 Lisinopril (LISINOPRIL) 40 Mg Tablet, 40 MG PO HS 03/11/14 GENNARO MURDOCK MD Jul 23, 2020 23:06 RAMÓN CHEUNG MD Jul 24, 2020 04:04
--- NOTE | 2020-07-23 23:55 | NUR ---
REPORT GIVEN TO [employer] [facility] NURSE [facility] MAIN ER, [facility] CALLED FOR TRANSPORT TO MAIN ER FOR 1:1 SITTER AND SUICIDE PRECAUTION. PT ASLEEP AND RESTING COMFORTABLY DENIES ANY COMPLAINTS, NOTIFIED OF CALL IN TO EMS FOR TRANSPORT TO MAIN [facility], PT VOICES UNDERSTANDING
[2020-07-24 00:22] LABS: SALICYLATE < 5.0 mg/dL (0-30)
--- NOTE | 2020-07-24 01:20 | NUR ---
MAT team called at this time
[2020-07-24 01:49] LABS: CLARITY,URINE CLEAR (CLEAR); COLOR,URINE YELLOW (YELLOW); KETONES,URINE NEGATIVE (NEGATIVE); LEUKOCYTE ESTERASE ,URINE NEGATIVE (NEGATIVE); NITRITE,URINE NEGATIVE (NEGATIVE); PROTEIN,URINE DIPSTICK NEGATIVE (NEGATIVE)
[2020-07-24 01:50] LABS: AMPHETAMINES SCREEN,URINE NEGATIVE (NEGATIVE); BENZODIAZEPINES SCREEN,URINE POSITIVE (NEGATIVE); BILIRUBIN,URINE NEGATIVE (NEGATIVE); PHENCYCLIDINE SCREEN,URINE NEGATIVE (NEGATIVE); PREGNANCY TEST, URINE NEGATIVE (NEGATIVE); URINE UROBILINOGEN 0.2 mg/dL (0.2 - 1)
[2020-07-24 01:54] LABS: BACTERIA,URINE FEW /HPF; EPITHELIAL CELLS,URINE MODERATE /LPF; RBC,URINE 0-5 /HPF (0-5); WBC,URINE (MAN) 0-5 /HPF (0-5)
[2020-07-24] MEDS ORDERED: ACETAMINOPHEN 325 MG TAB ONE (01:58)
[2020-07-24] MEDS ORDERED: ACETAMINOPHEN 325 MG TAB PO ONE (02:00)
[2020-07-24] MEDS ORDERED: ACETAMIN/BUTALBITAL/CAFFEINE TAB PO ONE (04:00)
--- NOTE | 2020-07-24 05:51 | NUR ---
Report to Phan from [facility].
--- NOTE | 2020-07-24 05:52 | NUR ---
Doctor to doctor report at this time. Dr. Hurtado accepted patient at this time. Phone number for Dr. Hurtado is [phone].
--- NOTE | 2020-07-24 07:09 | NUR ---
Eugenio gtz in [facility] - 07/24/20 at 0709 by DAREK Report to Kulwant MATA at this time.
--- NOTE | 2020-07-24 07:09 | NUR ---
Report to ADOLFO Blum
--- NOTE | 2020-07-24 07:10 | NUR ---
Spoke to Phan from [facility]. He states to notify him when COVID-19 test is resulted. Phone number to call is [phone].
--- NOTE | 2020-07-24 07:20 | NUR ---
Approval from [facility] at this time.
--- NOTE | 2020-07-24 07:22 | NUR ---
[facility] ETA 30-45 minutes
--- NOTE | 2020-07-24 07:27 | NUR ---
Covid results faxed to [facility] as requested
--- NOTE | 2020-07-24 08:52 | NUR ---
[facility] at bedside to transport patient to [facility]
== END 2020-07-24 08:58 ==
LOC: FSED 22:17 → ER 07-24 08:58
DX: R45.851 Suicidal ideations (principal); F32.9 Major depressive disorder, single episode, unspecified; I10 Essential (primary) hypertension; F41.9 Anxiety disorder, unspecified; K21.9 Gastro-esophageal reflux disease without esophagitis
CPT/HCPCS: 36415; 80053; 80307; 80320; 80329; 81001; 81025; 85025; 99284